=== PATIENT | male | born 1945 | race Caucasian/White ===

== ENCOUNTER 2017-08-16 05:46 | Day surgery (SDC) | payer MEDICARE, OTHER ==
[2017-08-16] MEDS ORDERED: DIPRIVAN 200 MG/20 ML IV ONE (05:47)
[2017-08-16] MEDS ORDERED: Lactated Ringers 1,000 ML IV ONE (06:19)
[2017-08-16] MEDS ORDERED: Lactated Ringers 1,000 ML IV SCH (06:30)
--- NOTE | 2017-08-16 08:55 | OP ---
SURGERY DATE/TIME: 08/16/2017 0758 PREOPERATIVE DIAGNOSES: 1) Gastroesophageal reflux. 2) History of colon polyps. POSTOPERATIVE DIAGNOSES: 1) Gastritis. 2) Reflux esophagitis. 3) Sigmoid diverticulosis. PROCEDURES: 1) Esophagogastroduodenoscopy with biopsy. 2) Colonoscopy. SURGEON: Dr. Crocker. ANESTHESIA: Medications were given by the anesthesia department. BRIEF HISTORY: The patient is a 71 year old white male patient now presenting for endoscopic evaluation due to the presence of persistent gastroesophageal reflux. The patient also reports he has had colon polyps previously and it has been over ten years since his previous evaluation. The patient was felt the need to have endoscopic evaluation. He was appraised of the risks of the procedure including risk of perforation, phlebitis and untoward reaction to medication, bleeding and missed lesions. The patient verbalized his understanding and desired to have the procedure performed. DESCRIPTION OF PROCEDURE: The patient was given the medications by the anesthesia department. He had continuous pulse oximetry, ECG monitoring, intermittent blood pressure monitoring and tidal CO2 monitoring during the examination. He was placed in the left lateral decubitus position. A bite block was placed and the flexible Olympus gastroscope was used to intubate the oropharynx. A view of the larynx was obtained and was normal. The scope was easily introduced in the esophagus which appeared to be normal to the distal esophagus where there appeared to be what looked like possible Vora's metaplasia. There was also noted to be erythema and erosions in the esophagus. The scope was passed in the stomach where normal gastric rugal folds were seen. These distended nicely with insufflation of air. The scope was passed along the greater curvature of the stomach that appeared to be mildly erythematous. The pylorus encountered and intubated. Duodenum inspected and found to be normal. The scope is then withdrawn towards the stomach. A retroflex view was obtained of the lesser curvature, fundus and cardia regions of the stomach and these appeared to be essentially normal. The scope was then redirected towards the gastric antrum and biopsies were obtained to rule out the presence of Helicobacter pylori-type organisms. As the scope was removed back to the esophagus biopsies were obtained to rule out the presence of Vora's metaplasia or dysplasia. The scope was removed from the patient. Next, a digital rectal exam was performed and revealed normal anal sphincter tone and no masses and normal prostate. The flexible Olympus pediatric colonoscope was used to intubate the rectum. A view of the colon was developed sequentially to the cecum. Upon insertion and withdrawal, including a retroflex view in the rectum, was noted moderate sigmoid diverticulosis but no other mucosal lesions were encountered. The scope was removed from the patient who tolerated the procedure well and was sent back to OP recovery in good condition. The prep was noted to be fair.
[2017-08-16 09:21] VITALS: PULSE 48; O2SAT 97
[2017-08-16 09:34] VITALS: BP 143/80
== END 2017-08-16 09:35 | disposition home or self-care (01) ==
LOC: SDC 05:46
PROVIDERS: ATTEND Family Medicine
DX: K29.70 Gastritis, unspecified, without bleeding (principal); Z86.010 Personal history of colon polyps; K21.0 Gastro-esophageal reflux disease with esophagitis; K57.90 Diverticulosis of intestine, part unspecified, without perforation or abscess without bleeding
CPT/HCPCS: 99100; J2704

== ENCOUNTER 2019-07-10 10:53 | Emergency (ER) | payer MEDICARE, OTHER ==
[2019-07-10] MEDS ORDERED: SUBLIMAZE 100 MCG/2 ML IV ONE ×2 (11:10→12:39)
[2019-07-10] MEDS ORDERED: Zofran 4 MG/2 ML VIAL IV ONE (11:11)
[2019-07-10] MEDS ORDERED: Zofran 4 MG/2 ML VIAL ONE (11:12)
[2019-07-10] MEDS ORDERED: SUBLIMAZE 100 MCG/2 ML ONE ×2 (11:13→12:43)
[2019-07-10 11:14] LABS: Appearance CLEAR (CLEAR); Bilirubin NEGATIVE (NEGATIVE); Blood NEGATIVE Ery/ul (0-5); Glucose NEGATIVE (NEGATIVE); Ketones NEGATIVE (NEGATIVE); Leukocyte Esterase NEGATIVE (NEGATIVE); Mucus SLIGHT /HPF (NEGATIVE); Nitrite NEGATIVE (NEGATIVE); Protein,Urine Dip NEGATIVE (Negative); Specific Gravity 1.013 (1.005-1.025); Urobilinogen NEGATIVE mg/dL (0-1)
--- NOTE | 2019-07-10 11:14 | ERPHSYRPT ---
- History of Present Illness Time Seen by Provider: 07/10/19 11:01 Historian: patient Exam Limitations: no limitations Patient Subjective Stated Complaint: Pt stated that he began having some pain in his left flank yesterday but it has increased today but it has not radiated anywhere Triage Nursing Assessment: Pt was brought here by another person, pt rates pain 10/10 with a constant throbbing pain, denies any injury, pain with palpatation, denies urination difficulties, bradycardic, last bm 3 days ago, lungs clear, bowel sounds heard Physician History: 73 yo wm w L flank/LCVA pain rated 10/10 since last PM. Pt states that the pain is throbbing and nothing makes it better or worse. He denies dysuria/hematuria/N /V/D/melena/hematochezia. He has not had a BM x3 days. Timing/Duration: yesterday Activities at Onset: none Quality: throbbing Abdominal Pain Onset Location: flank Pain Radiation: no radiation Severity of Pain-Max: severe Modifying Factors: Improves With: nothing Associated Symptoms: denies symptoms Previous symptoms: no prior history Allergies/Adverse Reactions: ibuprofen [From Motrin] Allergy (Intermediate, Verified 07/10/19 11:10) Hoarseness of voice Sulfa (Sulfonamide Antibiotics) Adverse Reaction (Verified 07/10/19 11:10) Home Medications: Latanoprost [Xalatan] 2.5 ml OP BID 08/16/17 [History] Atropine Sulfate [Atropine Sulfate Eye Drops] 1 drop OP UD 07/10/19 [History] Prednisolone Acetate OPHTH [Pred-Forte 1% Ophthalmic] 1 drop OP UD [History] Rosuvastatin Calcium 5 mg PO DAILY 07/10/19 [History] Travel Risk - International Travel Have you traveled outside of the country in past 3 weeks: No Have you or anyone close to you been diagnosed with or: No Do your reside in a community with a known COVID-19 case?: Yes If Yes where:: long - Coronavirus Screening Has patient experienced Coronavirus symptoms: No - Review of Systems Constitutional: No Symptoms Eyes: No Symptoms Ears, Nose, & Throat: No Symptoms Respiratory: No Symptoms Cardiac: No Symptoms Abdominal/Gastrointestinal: Constipation Genitourinary Symptoms: No Symptoms Musculoskeletal: No Symptoms Skin: No Symptoms Neurological: No Symptoms Psychological: No Symptoms Endocrine: No Symptoms Hematologic/Lymphatic: No Symptoms Immunological/Allergic: No Symptoms - Past Medical History Pertinent Past Medical History: Yes Neurological History: No Pertinent History ENT History: Cataracts, Macular Degeneration, Other Cardiac History: High Cholesterol Respiratory History: Other Endocrine Medical History: No Pertinent History Musculoskeletal History: Osteoarthritis GI Medical History: No Pertinent History History: No Pertinent History Psycho-Social History: No Pertinent History Male Reproductive Disorders: No Pertinent History Other Medical History: Hx bilateral shoulder replacements 2016 and 2017. Glaucoma. Toenail fungus. Diverticulitis - Past Surgical History Past Surgical History: Yes Neuro Surgical History: No Pertinent History Cardiac: No Pertinent History Respiratory: No Pertinent History Gastrointestinal: No Pertinent History Genitourinary: No Pertinent History Musculoskeletal: Orthopedic Surgery Male Surgical History: No Pertinent History Other Surgical History: both shoulders-hemis - Social History Smoking Status: Never smoker Exposure to second hand smoke: No Drug Use: none Patient Lives Alone: No Significant Family History: no pertinent family hx - Nursing Vital Signs Nursing Vital Signs: Initial Vital Signs Temperature 97.6 F 07/10/19 10:56 Pulse Rate 48 L 07/10/19 10:56 Blood Pressure 147/71 07/10/19 10:56 O2 Sat by Pulse Oximetry 98 07/10/19 10:56 Pain Scale Pain Intensity 6 - Physical Exam General Appearance: no apparent distress, other (Pain) Eye Exam: PERRL/EOMI, eyes nml inspection Ears, Nose, Throat Exam: normal ENT inspection, TMs normal Neck Exam: normal inspection, non-tender, supple, full range of motion Respiratory Exam: normal breath sounds, chest tenderness, lungs clear Cardiovascular Exam: regular rate/rhythm, normal heart sounds, normal peripheral pulses, No murmur Gastrointestinal/Abdomen Exam: soft, other (Mild LLQ/L Flank/LCVA TTP) Back Exam: CVA tenderness Extremity Exam: normal inspection, normal range of motion Neurologic Exam: alert, 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, cooperative, shell reprint operator II-XII nml as tested, normal mood/affect, nml cerebellar function, sensation nml Skin Exam: normal color, warm, dry, No rash Lymphatic Exam: No adenopathy SpO2 Interpretation: normal SpO2: 98 O2 Delivery: Room Air - Course Nursing assessment & vital signs reviewed: Yes EKG Interpreted by Me: Sinus Rei, NORMAL INTERVALS, NORMAL QRS Ordered Tests: Active Orders 24 hr Category Date Time Status Workforce Development Assistant STAT Care 07/10/19 11:35 Active EKG-ER Only STAT Care 07/10/19 11:34 Active IV Insertion STAT Care 07/10/19 11:06 Active ABDOMEN AND PELVIS W/0 CONTRAS [CT] Stat Exams 07/10/19 11:33 Completed AMYLASE Stat Lab 07/10/19 11:30 Completed CBC W DIFF Stat Lab 07/10/19 11:30 Completed CMP Stat Lab 07/10/19 11:30 Completed LIPASE Stat Lab 07/10/19 11:30 Completed Manual Differential NC Stat Lab 07/10/19 11:30 Completed TROPONIN Q3H Lab 07/10/19 11:30 Completed TROPONIN Q3H Lab 07/10/19 14:45 Ordered TROPONIN Q3H Lab 07/10/19 17:45 Ordered TROPONIN Q3H Lab 07/10/19 20:45 Ordered TROPONIN Q3H Lab 07/10/19 23:45 Ordered UA W/RFX UR CULTURE Stat Lab 07/10/19 11:03 Completed Medication Summary Discontinued Medications Generic Name Dose Route Start Last Admin Trade Name Freq PRN Reason Stop Dose Admin Fentanyl Citrate 50 mcg 07/10/19 11:10 07/10/19 11:15 Sublimaze 100 Mcg/2 Ml IV 07/10/19 11:11 50 mcg STAT ONE Administration Fentanyl Citrate Confirm 07/10/19 11:13 Sublimaze 100 Mcg/2 Ml Administered 07/10/19 11:14 Dose 100 mcg .ROUTE .STK-MED ONE Fentanyl Citrate 50 mcg 07/10/19 12:39 07/10/19 12:45 Sublimaze 100 Mcg/2 Ml IV 07/10/19 12:40 50 mcg STAT ONE Administration Fentanyl Citrate Confirm 07/10/19 12:43 Sublimaze 100 Mcg/2 Ml Administered 07/10/19 12:44 Dose 100 mcg .ROUTE .STK-MED ONE Ondansetron HCl 4 mg 07/10/19 11:11 07/10/19 11:15 Zofran 4 Mg/2 Ml Vial IV 07/10/19 11:12 4 mg STAT ONE Administration Ondansetron HCl Confirm 07/10/19 11:12 Zofran 4 Mg/2 Ml Vial Administered 07/10/19 11:13 Dose 4 mg .ROUTE .STK-MED ONE Lab/Rad Data: Laboratory Result Diagrams 07/10/19 11:30 07/10/19 11:30 Laboratory Results 07/10/19 07/10/19 07/10/19 Range/Units 11:30 11:30 11:30 WBC 4.8 (4.0-10.5) K/mm3 RBC 4.78 (4.1-5.6) M/mm3 Hgb 14.3 (12.5-18.0) gm/dl Hct 42.9 (42-50) % MCV 89.7 (78-100) fl MCH 29.9 (26-32) pg MCHC 33.3 (32-36) g/dl RDW 14.7 H (11.5-14.0) % Plt Count 167 (150-450) K/mm3 MPV 10.8 (7.5-11.0) fl Absolute Granulocytes 1.92 (1.4-6.9) Segmented Neutrophils 36 (36.-66.) % Band Neutrophils 4 H (0.0-2.0) % Lymphocytes (Manual) 37 (24-44) % Monocytes (Manual) 22 H (0.0-12.0) % Metamyelocytes 1 % Platelet Estimate NORMAL (NORMAL) RBC Morphology NORMAL Sodium 139 (137-145) mmol/L Potassium 4.5 (3.5-5.1) mmol/L Chloride 106 (98-107) mmol/L Carbon Dioxide 24 (22-30) mmol/L Anion Gap 14.2 (5-15) MEQ/L BUN 16 (9-20) mg/dL Creatinine 0.92 (0.66-1.25) mg/dL Estimated GFR > 60.0 ML/MIN Glucose 103 (74-106) mg/dL Calcium 9.0 (8.4-10.2) mg/dL Total Bilirubin 1.00 (0.2-1.3) mg/dL AST 23 (17-59) U/L ALT 19 (0-50) U/L Alkaline Phosphatase 50 (38-126) U/L Troponin I < 0.012 (0.000-0.034) ng/mL Serum Total Protein 7.8 (6.3-8.2) g/dL Albumin 4.3 (3.5-5.0) g/dL Amylase 74 (30-110) U/L Lipase 34 (23-300) U/L Urine Color (YELLOW) Urine Appearance (CLEAR) Urine pH (5-6) Ur Specific Thompson (1.005-1.025) Urine Protein (Negative) Urine Ketones (NEGATIVE) Urine Blood (0-5) Jose/ul Urine Nitrite (NEGATIVE) Urine Bilirubin (NEGATIVE) Urine Urobilinogen (0-1) mg/dL Ur Leukocyte Esterase (NEGATIVE) Urine WBC (Auto) (0-5) /HPF Urine RBC (Auto) (0-2) /HPF U Epithel Cells (Auto) (FEW) /HPF Urine Bacteria (Auto) (NEGATIVE) /HPF Urine Mucus (Auto) (NEGATIVE) /HPF Urine Culture Reflexed (NO) Urine Glucose (NEGATIVE) mg/dL 07/10/19 Range/Units 11:03 WBC (4.0-10.5) K/mm3 RBC (4.1-5.6) M/mm3 Hgb (12.5-18.0) gm/dl Hct (42-50) % MCV (78-100) fl MCH (26-32) pg MCHC (32-36) g/dl RDW (11.5-14.0) % Plt Count (150-450) K/mm3 MPV (7.5-11.0) fl Absolute Granulocytes (1.4-6.9) Segmented Neutrophils (36.-66.) % Band Neutrophils (0.0-2.0) % Lymphocytes (Manual) (24-44) % Monocytes (Manual) (0.0-12.0) % Metamyelocytes % Platelet Estimate (NORMAL) RBC Morphology Sodium (137-145) mmol/L Potassium (3.5-5.1) mmol/L Chloride (98-107) mmol/L Carbon Dioxide (22-30) mmol/L Anion Gap (5-15) MEQ/L BUN (9-20) mg/dL Creatinine (0.66-1.25) mg/dL Estimated GFR ML/MIN Glucose (74-106) mg/dL Calcium (8.4-10.2) mg/dL Total Bilirubin (0.2-1.3) mg/dL AST (17-59) U/L ALT (0-50) U/L Alkaline Phosphatase (38-126) U/L Troponin I (0.000-0.034) ng/mL Serum Total Protein (6.3-8.2) g/dL Albumin (3.5-5.0) g/dL Amylase (30-110) U/L Lipase (23-300) U/L Urine Color YELLOW (YELLOW) Urine Appearance CLEAR (CLEAR) Urine pH 6.0 (5-6) Ur Specific Thompson 1.013 (1.005-1.025) Urine Protein NEGATIVE (Negative) Urine Ketones NEGATIVE (NEGATIVE) Urine Blood NEGATIVE (0-5) Jose/ul Urine Nitrite NEGATIVE (NEGATIVE) Urine Bilirubin NEGATIVE (NEGATIVE) Urine Urobilinogen NEGATIVE (0-1) mg/dL Ur Leukocyte Esterase NEGATIVE (NEGATIVE) Urine WBC (Auto) NONE (0-5) /HPF Urine RBC (Auto) NONE (0-2) /HPF U Epithel Cells (Auto) NONE (FEW) /HPF Urine Bacteria (Auto) NONE (NEGATIVE) /HPF Urine Mucus (Auto) SLIGHT (NEGATIVE) /HPF Urine Culture Reflexed NO (NO) Urine Glucose NEGATIVE (NEGATIVE) mg/dL - Progress Progress: improved Progress Note: 07/10/19 12:36 Pain much improved w 50mcg IV Fentanyl/4mg IV zofran 07/10/19 12:44 Pt given 50mcg IV Fentanyl before discharge Counseled pt/family regarding: lab results, diagnosis, need for follow-up, rad results - Departure Departure Disposition: Home Clinical Impression: Abdominal pain, Constipation Condition: Stable Critical Care Time: No Referrals: CHENTE BARRERA [Primary Care Provider] - Additional Instructions: Fluids Lactulose for constipation Return to ER for increasing pain or temperature greater than 100.5 Prescriptions: Lactulose [Lactulose 20 gm/30Ml Ud Cup] 20 gm PO BID PRN 7 Days udcup PRN Reason: Constipation
[2019-07-10 11:44] LABS: Hematocrit 42.9 % (42-50); Hemoglobin 14.3 gm/dl (12.5-18.0); Mean Cell Volume 89.7 fl (78-100); Mean Corpuscular Hemoglobin 29.9 pg (26-32); Mean Corpuscular Hgb Concent. 33.3 g/dl (32-36); Mean Platelet Volume 10.8 fl (7.5-11.0); Platelet Count 167 K/mm3 (150-450); Red Blood Count 4.78 M/mm3 (4.1-5.6); Red Cell Distribution Width 14.7 % (11.5-14.0); White Blood Count 4.8 K/mm3 (4.0-10.5)
[2019-07-10 11:52] LABS: ALBUMIN 4.3 g/dL (3.5-5.0); ALKALINE PHOSPHATASE 50 U/L (38-126); AMYLASE 74 U/L (30-110); ANION GAP 14.2 MEQ/L (5-15); BLOOD UREA NITROGEN 16 mg/dL (9-20); CHLORIDE 106 mmol/L (98-107); Carbon Dioxide 24 mmol/L (22-30); Creatinine 1 0.92 mg/dL (0.66-1.25); Glucose 103 mg/dL (74-106); LIPASE 34 U/L (23-300); Potassium 4.5 mmol/L (3.5-5.1); SGOT/AST 23 U/L (17-59); SGPT/ALT 19 U/L (0-50); SODIUM 139 mmol/L (137-145); Total Protein 7.8 g/dL (6.3-8.2)
[2019-07-10 12:04] LABS: BAND 4 % (0.0-2.0); Lymphocytes 37 % (24-44); Metamyelocyte 1 %; Monocyte 22 % (0.0-12.0); Neutrophils 36 % (36.-66.); Total Cells Counted 100
[2019-07-10 12:05] LABS: Platelet Estimate NORMAL (NORMAL)
[2019-07-10 12:06] LABS: Absolute Neutrophil Ct (ANC) 1.92 (1.4-6.9)
--- NOTE | 2019-07-10 12:31 | XRAY ---
Indication: Left flank pain. Multiple contiguous axial images obtained through the abdomen and pelvis without contrast as ordered. Comparison: None Lung bases demonstrate mild bilateral dependent atelectasis. There is a benign 7 mm left lung base noncalcified nodule unchanged with respect to CT chest May 01, 2011. No infiltrate or effusion. Heart is not enlarged. Noncontrasted stomach and bowel loops appear nonobstructed. Normal appendix. Mild diffuse scattered colonic fecal debris greatest in the ascending and transverse colon. Scattered descending and sigmoid diverticulosis without diverticulitis. No free fluid/air. Several tiny splenic and solitary hepatic calcified granulomas. Remaining liver, gallbladder, pancreas, spleen, adrenal glands, kidneys, ureters, and bladder appear unremarkable for noncontrast exam. Minimal aortic calcifications without AAA. Osseous structures intact with mild/moderate degenerative changes throughout the thoracolumbar spine and minimal dextroscoliosis centered at L3. Also mild degenerative changes of both hips. Subcentimeter L3 vertebral body bone island. No ventral or inguinal hernias. Impression: 1. Mild diffuse fecal stasis without obstruction and scattered colonic diverticulosis without diverticulitis. 2. Incidental benign left lower lobe noncalcified pulmonary nodule, chronic bony findings, and evidence for granulomatous disease. 3. Remaining CT abdomen/pelvis without contrast exam is negative.
[2019-07-10 12:52] VITALS: BP 146/71; PULSE 52; O2SAT 96
== END 2019-07-10 12:58 | disposition home or self-care (01) ==
LOC: ED 10:53
DX: R10.9 Unspecified abdominal pain (principal); K59.00 Constipation, unspecified; Z79.899 Other long term (current) drug therapy; E78.00 Pure hypercholesterolemia, unspecified
CPT/HCPCS: 36000; 36415; 74176; 80053; 81001; 82150; 83690; 84484; 85025; 93005; 93041; 96374; 96375; 96376; 99284; J2405; J3010

== ENCOUNTER 2020-01-09 18:44 | Inpatient (IN) | payer MEDICARE, OTHER ==
--- NOTE | 2020-01-09 18:55 | ERPHSYRPT ---
- History of Present Illness Time Seen by Provider: 01/09/20 18:55 Source: patient Exam Limitations: no limitations Physician History: This is a 74-year-old male who only takes Flomax as his medication per his report and presents with 1 day history of cough fever and diarrhea. He has no known exposures to anyone that is positive for COVID-19 virus. He has no chest pain he is mildly short of breath. He has no abdominal pain. He has had no vomiting symptoms. He has no myalgias or arthralgias. Patient does not think he has COVID-19 virus but his and family are concerned about this is a possibility and therefore he is being evaluated in the emergency room for his cough, fever and shortness of breath symptoms as well as diarrhea symptoms. Timing/Duration: yesterday Activities at Onset: none Severity of Dyspnea-Max: mild Severity of Dyspnea-Current: mild Possible Cause: no prior episodes Modifying Factors: Improves With: coughing Associated Symptoms: cough, fever, No chest pain/discomfort, No loss of appetite, No chills Allergies/Adverse Reactions: ibuprofen [From Motrin] Allergy (Intermediate, Verified 07/10/19 11:10) Hoarseness of voice Sulfa (Sulfonamide Antibiotics) Adverse Reaction (Verified 07/10/19 11:10) Home Medications: Tamsulosin HCl 0.4 mg [Flomax 0.4 MG] 0.4 mg PO DAILY 01/09/20 [History] Travel Risk - International Travel Have you traveled outside of the country in past 3 weeks: No - Coronavirus Screening Are you exhibiting any of the following symptoms?: Yes Symptoms: Fever, Cough: New Onset, Vomiting/Diarrhea Close contact with a COVID-19 positive Pt in past 14-21 Days: No - Review of Systems Constitutional: Fever Eyes: No Symptoms Ears, Nose, & Throat: No Symptoms Respiratory: Cough, Dyspnea Cardiac: No Symptoms Abdominal/Gastrointestinal: Diarrhea Genitourinary Symptoms: No Symptoms Musculoskeletal: No Symptoms Skin: No Symptoms Neurological: No Symptoms Psychological: No Symptoms Endocrine: No Symptoms Hematologic/Lymphatic: No Symptoms Immunological/Allergic: No Symptoms All Other Systems: Reviewed and Negative - Past Medical History Pertinent Past Medical History: Yes Neurological History: No Pertinent History ENT History: Cataracts, Macular Degeneration, Other Cardiac History: High Cholesterol Respiratory History: Other Endocrine Medical History: No Pertinent History Musculoskeletal History: Osteoarthritis GI Medical History: No Pertinent History History: No Pertinent History Psycho-Social History: No Pertinent History Male Reproductive Disorders: No Pertinent History Other Medical History: Hx bilateral shoulder replacements 2016 and 2017. Glaucoma. Toenail fungus. Diverticulitis - Past Surgical History Past Surgical History: Yes Neuro Surgical History: No Pertinent History Cardiac: No Pertinent History Respiratory: No Pertinent History Gastrointestinal: No Pertinent History Genitourinary: No Pertinent History Musculoskeletal: Orthopedic Surgery Male Surgical History: No Pertinent History Other Surgical History: both shoulders-hemis - Social History Smoking Status: Never smoker Exposure to second hand smoke: No Drug Use: none Patient Lives Alone: No Significant Family History: no pertinent family hx - Nursing Vital Signs Nursing Vital Signs: Initial Vital Signs Temperature 100.4 F 01/09/20 19:21 Pulse Rate 109 H 01/09/20 19:21 Respiratory Rate 30 H 01/09/20 19:21 Blood Pressure 126/86 01/09/20 19:21 O2 Sat by Pulse Oximetry 95 01/09/20 19:21 Pain Scale Pain Intensity 0 - Physical Exam General Appearance: no apparent distress, alert, anxiety Eye Exam: PERRL/EOMI, eyes nml inspection Ears, Nose, Throat Exam: hearing grossly normal, normal pharynx Neck Exam: normal inspection, non-tender, supple, full range of motion Respiratory Exam: normal breath sounds, lungs clear, airway intact, No chest tenderness, No respiratory distress Cardiovascular/Chest Exam: normal peripheral pulses, tachycardia Abdominal/Gastrointestinal Exam: soft, normal bowel sounds, No tenderness Rectal Exam: not done Extremity Exam: non-tender, normal range of motion, normal inspection Neurologic Exam: alert, 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, cooperative, pulper II-XII nml as tested, normal mood/affect, nml cerebellar function, nml station & gait, sensation nml Skin Exam: normal color, warm, dry Lymphatic Exam: No adenopathy SpO2 Interpretation: normal O2 Delivery: Room Air - Course Nursing assessment & vital signs reviewed: Yes EKG Interpreted by Me: RATE ([id number]), Sinus Tach, NORMAL AXIS, NORMAL INTERVALS, NORMAL QRS, NORMAL ST-T, Other (There are no acute ischemic changes on today's EKG. There is new sinus tachycardia compared to the EKG dated 07/10/2019. 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 Care 01/09/20 19:14 Active EKG-ER Only STAT Care 01/09/20 19:13 Active IV Insertion STAT Care 01/09/20 19:13 Active Isolation, Initiate & Maintain STAT Care 01/09/20 19:13 Active Pulse Oximetry (ED) ROUTINE Care 01/09/20 19:14 Active CHEST 1 VIEW (PORTABLE) Stat Exams 01/09/20 19:15 Completed CHEST WITH CONTRAST [CT] Stat Exams 01/09/20 20:13 Taken BLOOD CULTURE Stat Lab 01/09/20 19:53 Received CBC W DIFF Stat Lab 01/09/20 19:28 Results CMP Stat Lab 01/09/20 19:26 Completed D-DIMER QUANTITATIVE Stat Lab 01/09/20 19:26 Completed Ferritin Stat Lab 01/09/20 19:37 Completed INFLUENZA A+B ANNA Stat Lab 01/09/20 19:53 Completed LDH-LACTATE DEHYDROGENASE Stat Lab 01/09/20 19:26 Completed Lactic Acid Stat Lab 01/09/20 19:25 Completed Manual Differential NC Stat Lab 01/09/20 19:28 Results Forrest Screen Stat Lab 01/09/20 19:26 Completed PROTIME WITH INR Stat Lab 01/09/20 19:26 Completed Pathologist Review Stat Lab 01/09/20 19:28 Results TROPONIN Q3H Lab 01/09/20 19:26 Completed TROPONIN Q3H Lab 01/09/20 22:15 Ordered TROPONIN Q3H Lab 01/10/20 01:15 Ordered TROPONIN Q3H Lab 01/10/20 04:15 Ordered TROPONIN Q3H Lab 01/10/20 07:15 Ordered UA W/RFX UR CULTURE Stat Lab 01/09/20 19:29 Ordered Transfer Order Routine Transfer 01/09/20 Ordered Medication Summary Generic Name Dose Route Start Last Admin Trade Name Freq PRN Reason Stop Dose Admin Sodium Chloride 1,000 mls @ 50 mls/hr 01/09/20 19:15 01/09/20 19:36 Sodium Chloride 0.9% 1000 Ml IV 02/08/20 19:14 50 mls/hr .Q20H YOANA Administration Discontinued Medications Generic Name Dose Route Start Last Admin Trade Name Freq PRN Reason Stop Dose Admin Acetaminophen 650 mg 01/09/20 19:57 01/09/20 20:02 Tylenol 325 Mg PO 01/09/20 19:58 650 mg STAT STA Administration Acetaminophen Confirm 01/09/20 20:01 Tylenol 325 Mg Administered 01/09/20 20:02 Dose 650 mg .ROUTE .STK-MED ONE Dexamethasone Sodium Phosphate 6 mg 01/09/20 21:27 Decadron 4 Mg Inj IV 01/09/20 21:28 STAT ONE Lab/Rad Data: Laboratory Result Diagrams 01/09/20 19:28 01/09/20 19:26 Laboratory Results 01/09/20 01/09/20 01/09/20 Range/Units 20:27 19:53 19:53 WBC (4.0-10.5) K/mm3 RBC (4.1-5.6) M/mm3 Hgb (12.5-18.0) gm/dl Hct (42-50) % MCV (78-100) fl MCH (26-32) pg MCHC (32-36) g/dl RDW (11.5-14.0) % Plt Count (150-450) K/mm3 MPV (7.5-11.0) fl Segmented Neutrophils (36.-66.) % Band Neutrophils (0.0-2.0) % Lymphocytes (Manual) (24-44) % Monocytes (Manual) (0.0-12.0) % Atypical Lymphocytes % Platelet Estimate (NORMAL) RBC Morphology Smear Path Review PT (8.83-12.87) SECONDS INR (0.8-3.0) D-Dimer (215-500) ng/mL Sodium (137-145) mmol/L Potassium (3.5-5.1) mmol/L Chloride (98-107) mmol/L Carbon Dioxide (22-30) mmol/L Anion Gap (5-15) MEQ/L BUN (9-20) mg/dL Creatinine (0.66-1.25) mg/dL Estimated GFR ML/MIN Glucose (74-106) mg/dL Lactic Acid (0.4-2.0) Calcium (8.4-10.2) mg/dL Ferritin (17.9-464) ng/mL Total Bilirubin (0.2-1.3) mg/dL AST (17-59) U/L ALT (0-50) U/L Alkaline Phosphatase (38-126) U/L Lactate Dehydrogenase (120-246) U/L Troponin I (0.000-0.034) ng/mL Serum Total Protein (6.3-8.2) g/dL Albumin (3.5-5.0) g/dL Monoscreen (Negative) Influenza Type A Ag NEGATIVE (NEGATIVE) Influenza Type B Ag NEGATIVE (NEGATIVE) SARS-CoV-2 (PCR) POSITIVE A (NEGATIVE) Group A Strep Antibody NOT DETECTED (NEGATIVE) 01/09/20 01/09/20 01/09/20 Range/Units 19:37 19:28 19:26 WBC 7.5 (4.0-10.5) K/mm3 RBC 4.61 (4.1-5.6) M/mm3 Hgb 13.5 (12.5-18.0) gm/dl Hct 40.0 L (42-50) % MCV 86.8 (78-100) fl MCH 29.3 (26-32) pg MCHC 33.8 (32-36) g/dl RDW 14.4 H (11.5-14.0) % Plt Count 106 L (150-450) K/mm3 MPV 12.2 H (7.5-11.0) fl Segmented Neutrophils 24 L (36.-66.) % Band Neutrophils 11 H (0.0-2.0) % Lymphocytes (Manual) 15 L (24-44) % Monocytes (Manual) 46 H (0.0-12.0) % Atypical Lymphocytes 4 % Platelet Estimate NORMAL (NORMAL) RBC Morphology NORMAL Smear Path Review Pending PT (8.83-12.87) SECONDS INR (0.8-3.0) D-Dimer (215-500) ng/mL Sodium (137-145) mmol/L Potassium (3.5-5.1) mmol/L Chloride (98-107) mmol/L Carbon Dioxide (22-30) mmol/L Anion Gap (5-15) MEQ/L BUN (9-20) mg/dL Creatinine (0.66-1.25) mg/dL Estimated GFR ML/MIN Glucose (74-106) mg/dL Lactic Acid (0.4-2.0) Calcium (8.4-10.2) mg/dL Ferritin 703 H (17.9-464) ng/mL Total Bilirubin (0.2-1.3) mg/dL AST (17-59) U/L ALT (0-50) U/L Alkaline Phosphatase (38-126) U/L Lactate Dehydrogenase (120-246) U/L Troponin I (0.000-0.034) ng/mL Serum Total Protein (6.3-8.2) g/dL Albumin (3.5-5.0) g/dL Monoscreen NEGATIVE (Negative) Influenza Type A Ag (NEGATIVE) Influenza Type B Ag (NEGATIVE) SARS-CoV-2 (PCR) (NEGATIVE) Group A Strep Antibody (NEGATIVE) 01/09/20 01/09/20 01/09/20 Range/Units 19:26 19:26 19:26 WBC (4.0-10.5) K/mm3 RBC (4.1-5.6) M/mm3 Hgb (12.5-18.0) gm/dl Hct (42-50) % MCV (78-100) fl MCH (26-32) pg MCHC (32-36) g/dl RDW (11.5-14.0) % Plt Count (150-450) K/mm3 MPV (7.5-11.0) fl Segmented Neutrophils (36.-66.) % Band Neutrophils (0.0-2.0) % Lymphocytes (Manual) (24-44) % Monocytes (Manual) (0.0-12.0) % Atypical Lymphocytes % Platelet Estimate (NORMAL) RBC Morphology Smear Path Review PT 16.9 H (8.83-12.87) SECONDS INR 1.49 (0.8-3.0) D-Dimer 1738 H* (215-500) ng/mL Sodium 128 L (137-145) mmol/L Potassium 4.0 (3.5-5.1) mmol/L Chloride 96 L (98-107) mmol/L Carbon Dioxide 22 (22-30) mmol/L Anion Gap 13.7 (5-15) MEQ/L BUN 24 H (9-20) mg/dL Creatinine 1.20 (0.66-1.25) mg/dL Estimated GFR > 60.0 ML/MIN Glucose 164 H (74-106) mg/dL Lactic Acid (0.4-2.0) Calcium 8.4 (8.4-10.2) mg/dL Ferritin (17.9-464) ng/mL Total Bilirubin 1.00 (0.2-1.3) mg/dL AST 60 H (17-59) U/L ALT 52 H (0-50) U/L Alkaline Phosphatase 48 (38-126) U/L Lactate Dehydrogenase 496 H (120-246) U/L Troponin I 0.019 (0.000-0.034) ng/mL Serum Total Protein 6.7 (6.3-8.2) g/dL Albumin 3.6 (3.5-5.0) g/dL Monoscreen (Negative) Influenza Type A Ag (NEGATIVE) Influenza Type B Ag (NEGATIVE) SARS-CoV-2 (PCR) (NEGATIVE) Group A Strep Antibody (NEGATIVE) 01/09/20 Range/Units 19:25 WBC (4.0-10.5) K/mm3 RBC (4.1-5.6) M/mm3 Hgb (12.5-18.0) gm/dl Hct (42-50) % MCV (78-100) fl MCH (26-32) pg MCHC (32-36) g/dl RDW (11.5-14.0) % Plt Count (150-450) K/mm3 MPV (7.5-11.0) fl Segmented Neutrophils (36.-66.) % Band Neutrophils (0.0-2.0) % Lymphocytes (Manual) (24-44) % Monocytes (Manual) (0.0-12.0) % Atypical Lymphocytes % Platelet Estimate (NORMAL) RBC Morphology Smear Path Review PT (8.83-12.87) SECONDS INR (0.8-3.0) D-Dimer (215-500) ng/mL Sodium (137-145) mmol/L Potassium (3.5-5.1) mmol/L Chloride (98-107) mmol/L Carbon Dioxide (22-30) mmol/L Anion Gap (5-15) MEQ/L BUN (9-20) mg/dL Creatinine (0.66-1.25) mg/dL Estimated GFR ML/MIN Glucose (74-106) mg/dL Lactic Acid 2.0 (0.4-2.0) Calcium (8.4-10.2) mg/dL Ferritin (17.9-464) ng/mL Total Bilirubin (0.2-1.3) mg/dL AST (17-59) U/L ALT (0-50) U/L Alkaline Phosphatase (38-126) U/L Lactate Dehydrogenase (120-246) U/L Troponin I (0.000-0.034) ng/mL Serum Total Protein (6.3-8.2) g/dL Albumin (3.5-5.0) g/dL Monoscreen (Negative) Influenza Type A Ag (NEGATIVE) Influenza Type B Ag (NEGATIVE) SARS-CoV-2 (PCR) (NEGATIVE) Group A Strep Antibody (NEGATIVE) - Progress Progress: re-examined Air Movement: fair Progress Note: 01/09/20 20:18 Chest x-ray shows bibasilar opacities right worse than left 01/09/20 21:25 CTA of the chest reveals bilateral groundglass opacities consistent with moderate bilateral COVID-19 pneumonia versus other viral pneumonia. No pulmonary emboli or aortic dissection is present 01/09/20 22:08 Medical decision making: I spoke with Dr. Baires I reviewed viewed the patient's history condition x-ray findings, EKG findings and response to therapy with him. I reviewed the patient's laboratory results. He agrees to admit the patient to the COVID-19 unit. Blood Culture(s) Obtained: Yes Antibiotics given: No Counseled pt/family regarding: lab results, diagnosis, need for follow-up, rad results - Departure Departure Disposition: In-patient Admission Clinical Impression: Pneumonia due to COVID-19 virus, Hypoxia, Fever Condition: Stable Critical Care Time: Yes Critical Care Time(excluding separately billable procedures): Critical 30-74 mins Referrals: GUSTAVO ROBERTS [Primary Care Provider] -
[2020-01-09] MEDS ORDERED: Sodium Chloride 0.9% 1000 ML 1,000 ML IV SCH (19:15)
[2020-01-09] MEDS ORDERED: Sodium Chloride 0.9% 1000 ML 1,000 ML ONE (19:33)
[2020-01-09 19:34] LABS: Hemoglobin 13.5 gm/dl (12.5-18.0); Mean Cell Volume 86.8 fl (78-100); Mean Corpuscular Hemoglobin 29.3 pg (26-32); Mean Corpuscular Hgb Concent. 33.8 g/dl (32-36); Mean Platelet Volume 12.2 fl (7.5-11.0); Platelet Count 106 K/mm3 (150-450); Red Blood Count 4.61 M/mm3 (4.1-5.6); Red Cell Distribution Width 14.4 % (11.5-14.0); White Blood Count 7.5 K/mm3 (4.0-10.5)
[2020-01-09 19:42] LABS: INR 1.49 (0.8-3.0); PROTIME 16.9 SECONDS (8.83-12.87)
[2020-01-09 19:46] LABS: ALBUMIN 3.6 g/dL (3.5-5.0); ALKALINE PHOSPHATASE 48 U/L (38-126); ANION GAP 13.7 MEQ/L (5-15); BLOOD UREA NITROGEN 24 mg/dL (9-20); CHLORIDE 96 mmol/L (98-107); Calcium 8.4 mg/dL (8.4-10.2); Carbon Dioxide 22 mmol/L (22-30); EST GLOMERULAR FILTRATION RATE > 60.0 ML/MIN; Glucose 164 mg/dL (74-106); LDH-LACTATE DEHYDROGENASE 496 U/L (120-246); SGOT/AST 60 U/L (17-59); SGPT/ALT 52 U/L (0-50); SODIUM 128 mmol/L (137-145); Total Protein 6.7 g/dL (6.3-8.2)
[2020-01-09] MEDS ORDERED: TYLENOL 325 MG PO STA (19:57)
[2020-01-09] MEDS ORDERED: TYLENOL 325 MG ONE (20:01)
[2020-01-09 20:16] LABS: INFLUENZA A NEGATIVE (NEGATIVE); INFLUENZA B NEGATIVE (NEGATIVE)
[2020-01-09 20:50] LABS: ATYPICAL LYMPHS 4 %; BAND 11 % (0.0-2.0); Lymphocytes 15 % (24-44); Monocyte 46 % (0.0-12.0); Neutrophils 24 % (36.-66.); Platelet Estimate NORMAL (NORMAL); Total Cells Counted 100
--- NOTE | 2020-01-09 21:19 | XRAY ---
Indication: Short of breath. Suspect Covid 19. Comparison: March 17, 2011. Portable chest demonstrates new subtle hazy airspace opacities bilaterally without consolidation/large effusion. Heart is not enlarged. Bony thorax intact with interval bilateral shoulder arthroplasty.
[2020-01-09] MEDS ORDERED: Decadron 4 MG INJ IV ONE (21:27)
[2020-01-09] MEDS ORDERED: Decadron 4 MG INJ ONE (22:30)
[2020-01-09] MEDS ORDERED: TYLENOL 325 MG PO PRN (22:34)
[2020-01-09] MEDS ORDERED: REMDESIVIR 100 MG in Sodium Chloride 0.9% 100 ML IVPB 100 ML IV SCH (22:34)
[2020-01-09] MEDS ORDERED: REMDESIVIR 200 MG in Sodium Chloride 0.9% 250 ML 250 ML IV ONE (22:34)
[2020-01-09] MEDS ORDERED: Zofran 4 MG/2 ML VIAL IV PRN (22:34)
[2020-01-10] MEDS: Sodium Chloride 0.9% 1000 ML 1,000 ML IV SCH ×2 (00:04→21:26)
[2020-01-10] MEDS ORDERED: Sodium Chloride 0.9% 250 ML 250 ML IV ONE (00:10)
[2020-01-10] MEDS ORDERED: REMDESIVIR IV ONE (00:10)
[2020-01-10 01:57] LABS: Appearance CLEAR (CLEAR); Bilirubin NEGATIVE (NEGATIVE); Blood SMALL Ery/ul (0-5); Glucose NEGATIVE (NEGATIVE); Ketones NEGATIVE (NEGATIVE); Leukocyte Esterase NEGATIVE (NEGATIVE); Mucus SLIGHT /HPF (NEGATIVE); Nitrite NEGATIVE (NEGATIVE); Protein,Urine Dip 30 (Negative); Specific Gravity 1.032 (1.005-1.025); Urobilinogen NEGATIVE mg/dL (0-1)
[2020-01-10 02:09] LABS: Bacteria NONE SEEN /HPF (NEGATIVE)
[2020-01-10 06:40] LABS: Hematocrit 39.4 % (42-50); Hemoglobin 13.4 gm/dl (12.5-18.0); Mean Cell Volume 86.8 fl (78-100); Mean Corpuscular Hemoglobin 29.5 pg (26-32); Mean Platelet Volume 12.4 fl (7.5-11.0); Platelet Count 108 K/mm3 (150-450); Red Blood Count 4.54 M/mm3 (4.1-5.6); Red Cell Distribution Width 14.3 % (11.5-14.0); White Blood Count 4.7 K/mm3 (4.0-10.5)
[2020-01-10 07:06] LABS: ALBUMIN 3.6 g/dL (3.5-5.0); ALKALINE PHOSPHATASE 44 U/L (38-126); ANION GAP 13.4 MEQ/L (5-15); BLOOD UREA NITROGEN 22 mg/dL (9-20); CHLORIDE 100 mmol/L (98-107); Calcium 8.6 mg/dL (8.4-10.2); Carbon Dioxide 24 mmol/L (22-30); Creatinine 1 1.05 mg/dL (0.66-1.25); EST GLOMERULAR FILTRATION RATE > 60.0 ML/MIN; Glucose 211 mg/dL (74-106); Potassium 4.7 mmol/L (3.5-5.1); SGOT/AST 59 U/L (17-59); SGPT/ALT 61 U/L (0-50); SODIUM 133 mmol/L (137-145); Total Protein 7.2 g/dL (6.3-8.2)
--- NOTE | 2020-01-10 08:10 | XRAY ---
Indication: Short of breath and cough. Elevated d-dimer. Multiple contiguous axial images obtained through the chest using 80 cc Isovue 370 contrast and PE protocol. Comparison: CT chest without May 01, 2011. There is good opacification of the pulmonary arteries including lobar and segmental branches. No pulmonary embolus. Heart is not enlarged. Aorta is normal in course and caliber. No pathologic mediastinal/hilar lymphadenopathy. Lungs inflated with new diffuse bilateral hazy alveolar opacities greatest in the lower lobes. No consolidation/effusion. Bony thorax intact with mild degenerative changes throughout the spine. Limited upper abdomen demonstrates splenic calcified granulomas and incompletely visualized 1.6 cm right inferior renal cyst. Impression: 1. Negative pulmonary embolus. 2. New diffuse bilateral airspace disease without consolidation/effusion. 3. New incompletely visualized right renal cyst. Comment: Preliminary interpretation was made by [facility]. No critical discrepancy.
[2020-01-10 08:59] LABS: BAND 9 % (0.0-2.0); Eosinophil 1 % (0.00-3.0); Lymphocytes 17 % (24-44); Monocyte 37 % (0.0-12.0); Neutrophils 36 % (36.-66.); Platelet Estimate DECREASED (NORMAL); Total Cells Counted 100
[2020-01-10] MEDS: ENOXAPARIN SODIUM SQ SCH (10:51)
[2020-01-10] MEDS ORDERED: Artificial Tears 15 ML OP PRN (11:44)
[2020-01-10] MEDS: Flomax 0.4 MG PO SCH (12:00)
[2020-01-10] MEDS: AMOXIL 500 MG PO SCH ×2 (15:32→22:07)
[2020-01-10] MEDS ORDERED: PATIENT OWN MEDICATION OP PRN (15:46)
[2020-01-10] MEDS ORDERED: Decadron 4 MG INJ IV SCH (21:00)
[2020-01-10] MEDS ORDERED: DECADRON 10MG INJ. IV SCH (21:00)
[2020-01-10] MEDS ORDERED: REMDESIVIR 100 MG in Sodium Chloride 0.9% 100 ML IVPB 100 ML IV SCH (22:00)
[2020-01-10] MEDS ORDERED: Sodium Chloride 0.9% 100 ML IVPB 100 ML IV ONE (22:19)
[2020-01-11] MEDS: AMOXIL 500 MG PO SCH (10:04)
[2020-01-11] MEDS: ENOXAPARIN SODIUM SQ SCH (10:04)
[2020-01-11] MEDS: Flomax 0.4 MG PO SCH (10:05)
--- NOTE | 2020-01-11 11:58 | HP ---
CHIEF COMPLAINT: Cough, fever, chills, myalgia. HISTORY OF PRESENT ILLNESS: This patient started running a fever of 100 to 101F at home, felt short of breath, could not stop coughing. He had some sharp chest pain. He thought he probably had COVID and brought himself to the emergency room late Saturday night. He has not been in close contact with anyone with the COVID. He usually stays around home. He is retired. His is a retired teacher. I do not think she gets out much. May have gotten it from a [facility] at [facility] I think is most likely. MEDICATIONS: Flomax 0.4 q.d. for benign prostatic hypertrophy just started. ALLERGIES: IBUPROFEN. SULFA. PAST MEDICAL HISTORY: Hypertension, history of multiple shoulder surgeries, history of pain in the right knee recently after twisting it, benign prostatic hypertrophy for which he is taking Flomax just recently and has not had any improvement with it. PAST SURGICAL HISTORY: Bilateral shoulder surgery I believe twice. REVIEW OF SYSTEMS: CONSTITUTIONAL: Fever and myalgia. HEENT: Eyes - No problems. Ears - hearing decreased. Hearing aids do not particularly help. RESPIRATORY: Cough, shortness of breath for three or four days. CVS: No chest pain, palpitations, history of myocardial infarction or arrhythmia. ABDOMEN: He had some nausea at first but not he is not so much nauseated. No history of gallbladder or colon problems. NEUROLOGIC: No history of stroke or seizures. PSYCHIATRIC: No history of depression. No anxiety. ENDOCRINE: No problems. 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 PHYSICAL EXAMINATION: The patient is a very healthy, strong looking 74 year old white male. VITAL SIGNS: Temperature was elevated at 100.4F. O2 saturation was normal on room air although he is short of breath and he was given 2 liters. HEENT: Pupils equal and reactive to light. NECK: Supple without adenopathy. CHEST: Clear. CVS: No murmurs or gallops. ABDOMEN: Soft. No tenderness. EXTREMITIES: Some tenderness really in the right vastus lateralis muscle not so much in the knee. LAB DATA AND TESTS: EKG was normal. IMPRESSION: The patient does have COVID pneumonia with mild symptoms. PLAN: At this time will start him on Decadron, Remdesivir and watch. He might be a candidate to send home in 24 hours on oxygen as he is extremely healthy, not particularly hypoxic. PROGNOSIS: Good.
[2020-01-11 12:34] VITALS: BP 117/74; PULSE 59; O2SAT 93
== END 2020-01-11 13:50 | disposition home or self-care (01) | DRG 177 ==
LOC: ED 18:44 → MED SURG 22:26
PROVIDERS: ADMIT Family Medicine; ATTEND Family Medicine
DX: U07.1 COVID-19 (principal); J12.89 Other viral pneumonia; R19.7 Diarrhea, unspecified; E78.00 Pure hypercholesterolemia, unspecified; I10 Essential (primary) hypertension; N40.0 Benign prostatic hyperplasia without lower urinary tract symptoms; R09.02 Hypoxemia; Z79.899 Other long term (current) drug therapy; R11.10 Vomiting, unspecified; M79.10 Myalgia, unspecified site
CPT/HCPCS: 36000; 36415; 71045; 71260; 80053; 81001; 82728; 82947; 83036; 83605; 83615; 84484; 85025; 85379; 85610; 86308; 87040; 87400; 87651; 93005; 93041; 94760; 94762; 96360; 96361; 99284; 99291; U0003; J1100; J1650; A9270-GY

== ENCOUNTER 2021-03-10 09:14 | Emergency (ER) | payer MEDICARE, OTHER ==
--- NOTE | 2021-03-10 09:28 | ERPHSYRPT ---
- History of Present Illness Time Seen by Provider: 03/10/21 09:27 Source: patient Exam Limitations: no limitations Physician History: This is a 75-year-old white male patient of Dr. Ilan Barrera who presented to the radiology department for a CAT scan of the head without contrast. While waiting for his study he had a seizure and a syncopal episode and patient was then transferred rapidly to our emergency department. Patient is currently awake alert and oriented. Patient has been having headaches and that is why he was sent to the emergency department to undergo CAT scan of his head. He was started on gabapentin yesterday and took a dose of that medicine this morning. He is convinced that the medicine is caused his symptoms this morning. Patient denies chest pain. He denies abdominal pain. He denies shortness of breath. Patient does have a history of prostate issues and relatively recently underwent a cystoscopy per his report. He has a history of elevated cholesterol. He is here in the emergency department because of the seizure-like activity and the syncopal episode. Timing/Duration: today Severity: moderate Character of Deficits: none Deficits: no difficulties Baseline/Normal Cognition: alert 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 Current Cognition: alert 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 Baseline Gait: walks w/o assistance Associated Symptoms: loss of consciousness, seizures, headache Allergies/Adverse Reactions: ibuprofen [From Motrin] Allergy (Intermediate, Verified 07/10/19 11:10) Hoarseness of voice Sulfa (Sulfonamide Antibiotics) Adverse Reaction (Verified 07/10/19 11:10) Home Medications: Tamsulosin HCl 0.4 mg [Flomax 0.4 MG] 0.4 mg PO DAILY 01/09/20 [History] Hx Tetanus, Diphtheria Vaccination/Date Given: Yes Hx Influenza Vaccination/Date Given: Yes Hx Pneumococcal Vaccination/Date Given: Yes Travel Risk - International Travel Have you traveled outside of the country in past 3 weeks: No - Coronavirus Screening Are you exhibiting any of the following symptoms?: No Close contact with a COVID-19 positive Pt in past 14-21 Days: No - Vaccine Status Have you recieved a Covid-19 vaccination: No - Review of Systems Constitutional: No Symptoms Eyes: No Symptoms Ears, Nose, & Throat: No Symptoms Respiratory: No Symptoms Cardiac: No Symptoms Abdominal/Gastrointestinal: No Symptoms Genitourinary Symptoms: No Symptoms Musculoskeletal: No Symptoms Skin: No Symptoms Neurological: Headache Psychological: No Symptoms Endocrine: No Symptoms Hematologic/Lymphatic: No Symptoms Immunological/Allergic: No Symptoms All Other Systems: Reviewed and Negative - Past Medical History Pertinent Past Medical History: Yes Neurological History: No Pertinent History ENT History: Cataracts, Macular Degeneration, Other Cardiac History: High Cholesterol Respiratory History: Other Endocrine Medical History: No Pertinent History Musculoskeletal History: Osteoarthritis GI Medical History: No Pertinent History History: No Pertinent History Psycho-Social History: No Pertinent History Male Reproductive Disorders: No Pertinent History Other Medical History: Hx bilateral shoulder replacements 2016 and 2017. Glaucoma. Toenail fungus. Diverticulitis - Past Surgical History Past Surgical History: Yes Neuro Surgical History: No Pertinent History Cardiac: No Pertinent History Respiratory: No Pertinent History Gastrointestinal: No Pertinent History Genitourinary: No Pertinent History Musculoskeletal: Orthopedic Surgery Male Surgical History: No Pertinent History Other Surgical History: both shoulders-hemis - Social History Smoking Status: Never smoker Exposure to second hand smoke: No Drug Use: none Patient Lives Alone: No Significant Family History: no pertinent family hx - Nursing Vital Signs Nursing Vital Signs: Initial Vital Signs Temperature 96.7 F 03/10/21 09:19 Pulse Rate 84 03/10/21 09:19 Respiratory Rate 30 H 03/10/21 09:19 Blood Pressure 132/67 03/10/21 09:19 O2 Sat by Pulse Oximetry 95 03/10/21 09:19 Pain Scale Pain Intensity 0 - [place] Coma Scale Best Eye Response (Carla): (4) open spontaneously Best Verbal Response ([place]): (5) oriented Best Motor Response (Carla): (6) obeys commands [place] Total: 15 - Physical Exam General Appearance: no apparent distress, alert, anxiety Eye Exam: bilateral eye: normal inspection, PERRL, EOMI Ears, Nose, Throat Exam: normal ENT inspection, moist mucous membranes Neck Exam: normal inspection, non-tender, supple, full range of motion Respiratory: normal breath sounds, lungs clear, airway intact, No chest tenderness, No respiratory distress Cardiovascular: regular rate/rhythm, normal heart sounds, normal peripheral pulses Gastrointestinal: soft, normal bowel sounds, No tenderness Rectal Exam: not done Back Exam: normal inspection, normal range of motion, No CVA tenderness, No vertebral tenderness Extremity Exam: normal inspection, normal range of motion, pelvis stable Mental 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: 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, 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, 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: normal hearing, normal speech, PERRL Coordination/Gait: normal finger to nose Motor/Sensory: no motor deficit, no sensory deficit, no pronator drift Skin Exam: warm, dry, pale SpO2 Interpretation: normal O2 Delivery: Room Air - Course Nursing assessment & vital signs reviewed: Yes EKG Interpreted by Me: RATE ([id number]), Sinus Rhythm, NORMAL AXIS, NORMAL INTERVALS, NORMAL QRS, NORMAL ST-T Ordered Tests: Active Orders 24 hr Category Date Time Status 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 Care 03/10/21 09:29 Active EKG-ER Only STAT Care 03/10/21 09:29 Active IV Insertion STAT Care 03/10/21 09:29 Active POCT Glucose Check STAT Care 03/10/21 09:29 Active Pulse Oximetry (ED) STAT Care 03/10/21 09:29 Active Seizure Precautions -SCCHED STAT Care 03/10/21 09:29 Active House Regular Diet Diet 03/10/21 Dinner Active HEAD WITHOUT CONTRAST [CT] Stat Exams 03/10/21 09:29 Completed CBC W DIFF Stat Lab 03/10/21 09:30 Completed CBC W DIFF Stat Lab 03/10/21 12:40 Received CMP Stat Lab 03/10/21 09:30 Completed COVID AG-BINAX NOW RAPID TEST Stat Lab 03/10/21 09:40 Completed CULTURE,URINE Stat Lab 03/10/21 11:44 Received ETHYL ALCOHOL Stat Lab 03/10/21 09:30 Completed INFLUENZA A+B ANNA Stat Lab 03/10/21 09:40 Completed Lactic Acid Stat Lab 03/10/21 09:39 Completed Manual Differential NC Stat Lab 03/10/21 09:30 Completed [place] Screen Stat Lab 03/10/21 09:30 Completed UA W/RFX UR CULTURE Stat Lab 03/10/21 11:44 Completed Urine Triage Profile Stat Lab 03/10/21 11:44 Completed Medication Summary Generic Name Dose Route Start Last Admin Trade Name Freq PRN Reason Stop Dose Admin Sodium Chloride 1,000 mls @ 250 mls/hr 03/10/21 11:45 03/10/21 12:03 Sodium Chloride 0.9% 1000 Ml IV 04/09/21 11:44 250 mls/hr .Q4H YOANA Administration Discontinued Medications Generic Name Dose Route Start Last Admin Trade Name Freq PRN Reason Stop Dose Admin Sodium Chloride 1,000 mls @ 999 mls/hr 03/10/21 09:29 03/10/21 10:57 Sodium Chloride 0.9% 1000 Ml IV 03/10/21 10:29 Infused .Q1H1M STA Infusion Sodium Chloride Confirm 03/10/21 09:43 Sodium Chloride 0.9% 1000 Ml Administered 03/10/21 09:44 Dose 1,000 mls @ ud .ROUTE .STK-MED ONE Ondansetron HCl 4 mg 03/10/21 09:41 03/10/21 09:44 Ondansetron Hcl 4 Mg/2 Ml Vial IV 03/10/21 09:42 4 mg STAT ONE Administration Ondansetron HCl Confirm 03/10/21 09:41 Ondansetron Hcl 4 Mg/2 Ml Vial Administered 03/10/21 09:42 Dose 4 mg .ROUTE .STK-MED ONE Lab/Rad Data: Laboratory Result Diagrams 03/10/21 09:30 03/10/21 09:30 Laboratory Results 03/10/21 03/10/21 03/10/21 Range/Units 11:44 11:44 09:40 WBC (4.0-10.5) K/mm3 RBC (4.1-5.6) M/mm3 Hgb (12.5-18.0) gm/dl Hct (42-50) % MCV (78-100) fl MCH (26-32) pg MCHC (32-36) g/dl RDW (11.5-14.0) % Plt Count (150-450) K/mm3 MPV (7.5-11.0) fl Segmented Neutrophils (36.-66.) % Band Neutrophils (0.0-2.0) % Lymphocytes (Manual) (24-44) % Monocytes (Manual) (0.0-12.0) % Eosinophils (Manual) (0.00-3.0) % Platelet Estimate (NORMAL) RBC Morphology Sodium (137-145) mmol/L Potassium (3.5-5.1) mmol/L Chloride (98-107) mmol/L Carbon Dioxide (22-30) mmol/L Anion Gap (5-15) MEQ/L BUN (9-20) mg/dL Creatinine (0.66-1.25) mg/dL Estimated GFR ML/MIN Glucose (74-106) mg/dL Lactic Acid (0.4-2.0) Calcium (8.4-10.2) mg/dL Total Bilirubin (0.2-1.3) mg/dL AST (17-59) U/L ALT (0-50) U/L Alkaline Phosphatase (38-126) U/L Serum Total Protein (6.3-8.2) g/dL Albumin (3.5-5.0) g/dL Urine Color YELLOW (YELLOW) Urine Appearance CLOUDY (CLEAR) Urine pH 5.0 (5-6) Ur Specific [place] 1.011 (1.005-1.025) Urine Protein 30 (Negative) Urine Ketones NEGATIVE (NEGATIVE) Urine Blood SMALL (0-5) Jose/ul Urine Nitrite NEGATIVE (NEGATIVE) Urine Bilirubin NEGATIVE (NEGATIVE) Urine Urobilinogen NEGATIVE (0-1) mg/dL Ur Leukocyte Esterase NEGATIVE (NEGATIVE) Urine WBC (Auto) 6-10 (0-5) /HPF Urine RBC (Auto) 0-2 (0-2) /HPF U Epithel Cells (Auto) RARE (FEW) /HPF Urine Culture Reflexed YES (NO) Urine Glucose NEGATIVE (NEGATIVE) mg/dL Urine Opiates Level NEGATIVE (NEGATIVE) Ur Methadone NEGATIVE (NEGATIVE) Urine Barbiturates NEGATIVE (NEGATIVE) Ur Phencyclidine (PCP) NEGATIVE (NEGATIVE) Urine Amphetamine NEGATIVE (NEGATIVE) U Benzodiazepine Level NEGATIVE (NEGATIVE) Urine Cocaine NEGATIVE (NEGATIVE) Urine Marijuana (THC) NEGATIVE (NEGATIVE) Ethyl Alcohol (0-10) mg/dL Monoscreen (Negative) Influenza Type A Ag NEGATIVE (NEGATIVE) Influenza Type B Ag NEGATIVE (NEGATIVE) SARS-CoV-2 Ag (Rapid) NEGATIVE (NEGATIVE) 03/10/21 03/10/21 03/10/21 Range/Units 09:39 09:30 09:30 WBC (4.0-10.5) K/mm3 RBC (4.1-5.6) M/mm3 Hgb (12.5-18.0) gm/dl Hct (42-50) % MCV (78-100) fl MCH (26-32) pg MCHC (32-36) g/dl RDW (11.5-14.0) % Plt Count (150-450) K/mm3 MPV (7.5-11.0) fl Segmented Neutrophils (36.-66.) % Band Neutrophils (0.0-2.0) % Lymphocytes (Manual) (24-44) % Monocytes (Manual) (0.0-12.0) % Eosinophils (Manual) (0.00-3.0) % Platelet Estimate (NORMAL) RBC Morphology Sodium 134 L (137-145) mmol/L Potassium 4.1 (3.5-5.1) mmol/L Chloride 102 (98-107) mmol/L Carbon Dioxide 19 L (22-30) mmol/L Anion Gap 17.4 H (5-15) MEQ/L BUN 21 H (9-20) mg/dL Creatinine 1.34 H (0.66-1.25) mg/dL Estimated GFR 54.9 ML/MIN Glucose 173 H (74-106) mg/dL Lactic Acid 2.0 (0.4-2.0) Calcium 8.5 (8.4-10.2) mg/dL Total Bilirubin 0.90 (0.2-1.3) mg/dL AST 83 H (17-59) U/L ALT 103 H (0-50) U/L Alkaline Phosphatase 103 (38-126) U/L Serum Total Protein 6.8 (6.3-8.2) g/dL Albumin 3.2 L (3.5-5.0) g/dL Urine Color (YELLOW) Urine Appearance (CLEAR) Urine pH (5-6) Ur Specific [place] (1.005-1.025) Urine Protein (Negative) Urine Ketones (NEGATIVE) Urine Blood (0-5) Jose/ul Urine Nitrite (NEGATIVE) Urine Bilirubin (NEGATIVE) Urine Urobilinogen (0-1) mg/dL Ur Leukocyte Esterase (NEGATIVE) Urine WBC (Auto) (0-5) /HPF Urine RBC (Auto) (0-2) /HPF U Epithel Cells (Auto) (FEW) /HPF Urine Culture Reflexed (NO) Urine Glucose (NEGATIVE) mg/dL Urine Opiates Level (NEGATIVE) Ur Methadone (NEGATIVE) Urine Barbiturates (NEGATIVE) Ur Phencyclidine (PCP) (NEGATIVE) Urine Amphetamine (NEGATIVE) U Benzodiazepine Level (NEGATIVE) Urine Cocaine (NEGATIVE) Urine Marijuana (THC) (NEGATIVE) Ethyl Alcohol < 10 (0-10) mg/dL Monoscreen NEGATIVE (Negative) Influenza Type A Ag (NEGATIVE) Influenza Type B Ag (NEGATIVE) SARS-CoV-2 Ag (Rapid) (NEGATIVE) 01/28/22 Range/Units 09:30 WBC 18.9 H (4.0-10.5) K/mm3 RBC 3.69 L (4.1-5.6) M/mm3 Hgb 10.1 L (12.5-18.0) gm/dl Hct 31.6 L (42-50) % MCV 85.6 (78-100) fl MCH 27.4 (26-32) pg MCHC 32.0 (32-36) g/dl RDW 14.9 H (11.5-14.0) % Plt Count 287 (150-450) K/mm3 MPV 9.9 (7.5-11.0) fl Segmented Neutrophils 57 (36.-66.) % Band Neutrophils 5 H (0.0-2.0) % Lymphocytes (Manual) 13 L (24-44) % Monocytes (Manual) 23 H (0.0-12.0) % Eosinophils (Manual) 2 (0.00-3.0) % Platelet Estimate NORMAL (NORMAL) RBC Morphology NORMAL Sodium (137-145) mmol/L Potassium (3.5-5.1) mmol/L Chloride (98-107) mmol/L Carbon Dioxide (22-30) mmol/L Anion Gap (5-15) MEQ/L BUN (9-20) mg/dL Creatinine (0.66-1.25) mg/dL Estimated GFR ML/MIN Glucose (74-106) mg/dL Lactic Acid (0.4-2.0) Calcium (8.4-10.2) mg/dL Total Bilirubin (0.2-1.3) mg/dL AST (17-59) U/L ALT (0-50) U/L Alkaline Phosphatase (38-126) U/L Serum Total Protein (6.3-8.2) g/dL Albumin (3.5-5.0) g/dL Urine Color (YELLOW) Urine Appearance (CLEAR) Urine pH (5-6) Ur Specific [place] (1.005-1.025) Urine Protein (Negative) Urine Ketones (NEGATIVE) Urine Blood (0-5) Jose/ul Urine Nitrite (NEGATIVE) Urine Bilirubin (NEGATIVE) Urine Urobilinogen (0-1) mg/dL Ur Leukocyte Esterase (NEGATIVE) Urine WBC (Auto) (0-5) /HPF Urine RBC (Auto) (0-2) /HPF U Epithel Cells (Auto) (FEW) /HPF Urine Culture Reflexed (NO) Urine Glucose (NEGATIVE) mg/dL Urine Opiates Level (NEGATIVE) Ur Methadone (NEGATIVE) Urine Barbiturates (NEGATIVE) Ur Phencyclidine (PCP) (NEGATIVE) Urine Amphetamine (NEGATIVE) U Benzodiazepine Level (NEGATIVE) Urine Cocaine (NEGATIVE) Urine Marijuana (THC) (NEGATIVE) Ethyl Alcohol (0-10) mg/dL Monoscreen (Negative) Influenza Type A Ag (NEGATIVE) Influenza Type B Ag (NEGATIVE) SARS-CoV-2 Ag (Rapid) (NEGATIVE) - Progress Progress: improved Progress Note: 03/10/21 10:36 CAT scan of the head without contrast is negative for any acute findings. Counseled pt/family regarding: lab results, diagnosis, rad results - Departure Departure Disposition: Home Clinical Impression: Syncope, Medication reaction Condition: Stable Critical Care Time: No Referrals: CHENTE BARRERA [Primary Care Provider] - Follow up/PCP as directed Additional Instructions: Call your primary care doctor today to update them on episode that occurred in the hospital. Ask him for referral to a neurologist if indicated. Stop the new medication (gabapentin) and ask your primary care doctor for instructions.
[2021-03-10] MEDS ORDERED: Sodium Chloride 0.9% 1000 ML 1,000 ML IV STA (09:29)
[2021-03-10] MEDS ORDERED: Zofran 4 MG/2 ML VIAL ONE (09:41)
[2021-03-10] MEDS ORDERED: Zofran 4 MG/2 ML VIAL IV ONE (09:41)
[2021-03-10] MEDS ORDERED: Sodium Chloride 0.9% 1000 ML 1,000 ML ONE ×2 (09:43→11:56)
[2021-03-10 09:58] LABS: Hematocrit 31.6 % (42-50); Hemoglobin 10.1 gm/dl (12.5-18.0); Mean Cell Volume 85.6 fl (78-100); Mean Corpuscular Hemoglobin 27.4 pg (26-32); Mean Platelet Volume 9.9 fl (7.5-11.0); Platelet Count 287 K/mm3 (150-450); Red Blood Count 3.69 M/mm3 (4.1-5.6); Red Cell Distribution Width 14.9 % (11.5-14.0); White Blood Count 18.9 K/mm3 (4.0-10.5)
[2021-03-10 10:02] LABS: ALBUMIN 3.2 g/dL (3.5-5.0); ALKALINE PHOSPHATASE 103 U/L (38-126); ANION GAP 17.4 MEQ/L (5-15); BLOOD UREA NITROGEN 21 mg/dL (9-20); CHLORIDE 102 mmol/L (98-107); Calcium 8.5 mg/dL (8.4-10.2); Carbon Dioxide 19 mmol/L (22-30); Creatinine 1 1.34 mg/dL (0.66-1.25); EST GLOMERULAR FILTRATION RATE 54.9 ML/MIN; ETHYL ALCOHOL < 10 mg/dL (0-10); Glucose 173 mg/dL (74-106); Potassium 4.1 mmol/L (3.5-5.1); SGOT/AST 83 U/L (17-59); SGPT/ALT 103 U/L (0-50); SODIUM 134 mmol/L (137-145); Total Protein 6.8 g/dL (6.3-8.2)
--- NOTE | 2021-03-10 10:05 | XRAY ---
Indication: Seizure. Syncope. Multiple contiguous axial images obtained through the head without contrast. Comparison: December 07, 2009. Age-appropriate global atrophy. No acute intracranial hemorrhage, abnormal extra-axial fluid collection, or mass effect. Fourth ventricle is midline without hydrocephalus. Morton-white matter differentiation preserved. Bony calvarium intact. Visualized paranasal sinuses and mastoid air cells are clear. Impression: Continued negative CT head without contrast exam.
[2021-03-10 10:09] LABS: INFLUENZA A NEGATIVE (NEGATIVE); INFLUENZA B NEGATIVE (NEGATIVE)
[2021-03-10 10:22] LABS: COVID AG -BINAX NOW RAPID TEST NEGATIVE (NEGATIVE)
[2021-03-10 10:29] LABS: BAND 5 % (0.0-2.0); Eosinophil 2 % (0.00-3.0); Lymphocytes 13 % (24-44); Monocyte 23 % (0.0-12.0); Neutrophils 57 % (36.-66.); Platelet Estimate NORMAL (NORMAL); Total Cells Counted 100
[2021-03-10] MEDS ORDERED: Sodium Chloride 0.9% 1000 ML 1,000 ML IV SCH (11:45)
[2021-03-10 11:55] LABS: Appearance CLOUDY (CLEAR); Bilirubin NEGATIVE (NEGATIVE); Blood SMALL Ery/ul (0-5); Epithelial Cells RARE /HPF (FEW); Glucose NEGATIVE (NEGATIVE); Ketones NEGATIVE (NEGATIVE); Leukocyte Esterase NEGATIVE (NEGATIVE); Nitrite NEGATIVE (NEGATIVE); Protein,Urine Dip 30 (Negative); RBC 0-2 /HPF (0-2); Specific Gravity 1.011 (1.005-1.025); Urobilinogen NEGATIVE mg/dL (0-1)
[2021-03-10 12:12] LABS: Amphetamine,Urine NEGATIVE (NEGATIVE); Barbiturate,Urine NEGATIVE (NEGATIVE); Benzodiazepine,Urine NEGATIVE (NEGATIVE); Cocaine,Urine NEGATIVE (NEGATIVE); Methadone,Urine NEGATIVE (NEGATIVE); Opiate,Urine NEGATIVE (NEGATIVE); PCP,Urine NEGATIVE (NEGATIVE); THC,Urine NEGATIVE (NEGATIVE)
[2021-03-10 12:53] LABS: Hematocrit 30.5 % (42-50); Hemoglobin 9.5 gm/dl (12.5-18.0); Mean Cell Volume 87.4 fl (78-100); Mean Corpuscular Hemoglobin 27.2 pg (26-32); Mean Corpuscular Hgb Concent. 31.1 g/dl (32-36); Mean Platelet Volume 9.7 fl (7.5-11.0); Platelet Count 261 K/mm3 (150-450); Red Blood Count 3.49 M/mm3 (4.1-5.6); White Blood Count 18.7 K/mm3 (4.0-10.5)
[2021-03-10 13:04] LABS: Slide Review 1 NO
[2021-03-10 13:22] VITALS: BP 126/44; PULSE 70; O2SAT 100
== END 2021-03-10 13:23 | disposition home or self-care (01) ==
LOC: ED 09:14
DX: R55 Syncope and collapse (principal); T42.6X5A Adverse effect of other antiepileptic and sedative-hypnotic drugs, initial encounter; R56.9 Unspecified convulsions; R51.9 Headache, unspecified; E78.5 Hyperlipidemia, unspecified
CPT/HCPCS: 36000; 36415; 70450; 80053; 80307; 81001; 83605; 85025; 86308; 87077; 87086; 87186; 87400; 93005; 93041; 94760; 96360; 96374; 99000; 99285; G0480; J2405

== ENCOUNTER 2023-11-14 11:46 | Inpatient (IN) | payer MEDICARE, OTHER ==
--- NOTE | 2023-11-14 11:49 | ERPHSYRPT ---
- History of Present Illness Time Seen by Provider: 11/14/23 11:49 Source: patient, family Exam Limitations: no limitations Physician History: This is an 78-year-old white male patient of Dr. Crocker who was brought over to the emergency department because he was getting ready to undergo an MRI in the radiology department. He had an issue with urinary retention postoperatively from a left shoulder replacement surgery 3 days ago. He was also found to have a very rapid heart rate. On arrival to the emergency department his twelve-lead EKG showed atrial fibrillation with RVR. Patient denied chest pain but there was some mild tightness present. He also denies shortness of breath. His main complaint is pain in the left shoulder. In addition he had some complaints of urinary retention. Patient's systolic blood pressure on arrival to the emergency department 122. His room air oxygen saturation levels are 94 to 95%. There are no new medications other than pain medication postoperatively. Timing/Duration: today Activities at Onset: none Location: substernal, central, other (Tightness) Chest Pain Radiation: no radiation Severity of Pain-Max: mild Severity of Pain-Current: mild Nitro Today/Relief: no nitro taken today Aspirin Treatment Today: no aspirin today Associated Symptoms: denies symptoms, No shortness of breath, No chest pain Prior Chest Pain/Cardiac Workup: no prior chest pain, no prior cardiac workup Allergies/Adverse Reactions: ibuprofen [From Motrin] Allergy (Intermediate, Verified 11/14/23 11:48) Hoarseness of voice Sulfa (Sulfonamide Antibiotics) Adverse Reaction (Verified 11/14/23 11:48) Home Medications: No Reportable Medications [No Reported Medications] 11/14/23 [History] Hx Tetanus, Diphtheria Vaccination/Date Given: Yes Hx Influenza Vaccination/Date Given: Yes Hx Pneumococcal Vaccination/Date Given: Yes Travel Risk - International Travel Have you traveled outside of the country in past 3 weeks: No - Emerging Infectious Disease Are you exhibiting symptoms associated with any current EIDs: No - Review of Systems Constitutional: No Symptoms Eyes: No Symptoms Ears, Nose, & Throat: No Symptoms Respiratory: No Symptoms Cardiac: Chest Pain (Described as a mild tightness anteriorly central, substernal without radiation) Abdominal/Gastrointestinal: No Symptoms Genitourinary Symptoms: No Symptoms Musculoskeletal: No Symptoms Skin: No Symptoms Neurological: No Symptoms Psychological: No Symptoms Endocrine: No Symptoms Hematologic/Lymphatic: No Symptoms Immunological/Allergic: No Symptoms All Other Systems: Reviewed and Negative - Past Medical History Pertinent Past Medical History: Yes Neurological History: No Pertinent History ENT History: Cataracts, Macular Degeneration, Other Cardiac History: High Cholesterol Respiratory History: Pneumonia Endocrine Medical History: No Pertinent History Musculoskeletal History: Osteoarthritis GI Medical History: No Pertinent History History: No Pertinent History Psycho-Social History: No Pertinent History Male Reproductive Disorders: No Pertinent History Other Medical History: Hx bilateral shoulder replacements 2016 and 2017. Glaucoma. Toenail fungus. Diverticulitis - Past Surgical History Past Surgical History: Yes Neuro Surgical History: No Pertinent History Cardiac: No Pertinent History Respiratory: No Pertinent History Gastrointestinal: No Pertinent History Genitourinary: No Pertinent History Musculoskeletal: Orthopedic Surgery Male Surgical History: No Pertinent History Other Surgical History: both shoulders-hemis Significant Family History: no pertinent family hx - Social History Smoking Status: Never smoker Exposure to second hand smoke: No Drug Use: none Patient Lives Alone: No - Nursing Vital Signs Nursing Vital Signs: Initial Vital Signs Pulse Rate 109 H 11/14/23 11:47 Respiratory Rate 22 11/14/23 11:47 Blood Pressure 122/95 11/14/23 11:47 O2 Sat by Pulse Oximetry 94 L 11/14/23 11:47 Pain Scale Pain Intensity 0 - Physical Exam General Appearance: no apparent distress, alert, anxiety Eye Exam: PERRL/EOMI, eyes nml inspection Ears, Nose, Throat Exam: normal ENT inspection, moist mucous membranes Neck Exam: normal inspection, non-tender, supple, full range of motion Respiratory Exam: normal breath sounds, lungs clear, respiratory distress, airway intact, No chest tenderness Cardiovascular Exam: tachycardia, irregular Gastrointestinal/Abdomen Exam: soft, normal bowel sounds, No tenderness Rectal Exam: not done Back Exam: normal inspection, normal range of motion, No CVA tenderness, No simon tebral tenderness Extremity Exam: pelvis stable, other (Patient's left shoulder was recently operated on it and is in a shoulder harness device and he cannot move the left shoulder/left upper extremity) Neurologic Exam: alert, 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, cooperative, director of compliance II-XII nml as tested, sensation nml Skin Exam: normal color, warm, dry Lymphatic Exam: No adenopathy SpO2 Interpretation: normal O2 Delivery: Room Air - Course Nursing assessment & vital signs reviewed: Yes EKG Interpreted by Me: RATE (137), A-fib, Non-specific ST Changes, Other (No acute ischemic changes on today's twelve-lead EKG. The QTc is 428.) Ordered Tests: Active Orders 24 hr Category Date Time Status EKG-ER Only STAT Care 11/14/23 12:00 Active IV Insertion STAT Care 11/14/23 12:00 Active Pulse Oximetry (ED) STAT Care 11/14/23 12:00 Active CHEST WITH CONTRAST [CT] Stat Exams 11/14/23 12:49 Completed BLOOD CULTURE Stat Lab 11/14/23 15:12 Received CBC W DIFF Stat Lab 11/14/23 12:15 Completed CMP Stat Lab 11/14/23 12:15 Completed D-DIMER QUANTITATIVE Stat Lab 11/14/23 12:15 Completed Lactic Acid Stat Lab 11/14/23 16:28 Completed MAGNESIUM Stat Lab 11/14/23 12:15 Completed Manual Differential NC Stat Lab 11/14/23 12:15 Completed NT PRO BNPII Stat Lab 11/14/23 12:15 Completed PROTIME WITH INR Stat Lab 11/14/23 12:15 Completed Pathologist Review Stat Lab 11/14/23 12:15 Completed TROPONIN Q4H Lab 11/14/23 12:15 Completed TROPONIN Q4H Lab 11/14/23 15:12 Completed TROPONIN Q4H Lab 11/14/23 20:15 Ordered UA W/RFX UR CULTURE Stat Lab 11/14/23 12:05 Received Medication Summary Generic Name Dose Route Start Last Admin Trade Name Freq PRN Reason Stop Dose Admin Sodium Chloride 1,000 mls @ 100 mls/hr 11/14/23 12:00 11/14/23 12:07 Sodium Chloride 0.9% 1000 Ml IV 12/14/23 11:59 100 mls/hr .Q10H YOANA Administration Sodium Chloride 1,000 mls @ 100 mls/hr 11/14/23 12:15 11/14/23 12:26 Sodium Chloride 0.9% 1000 Ml IV 12/14/23 12:14 Not Given .Q10H YOANA Diltiazem HCl 100 mls @ 5 mls/hr 11/14/23 12:30 11/14/23 16:02 Cardizem Drip 100 Mg/100 Ml D5w IV 12/14/23 12:29 17.5 mg/hr .Q20H PRN 17.5 mls/hr HEART RATE/ A-FIB Titration Protocol 5 MG/HR Azithromycin 500 mg/ Sodium 250 mls @ 125 mls/hr 11/14/23 17:00 11/14/23 17:04 Chloride IV 11/14/23 18:59 125 mls/hr STAT ONE Administration Discontinued Medications Generic Name Dose Route Start Last Admin Trade Name Michael PRN Reason Stop Dose Admin Diltiazem HCl Confirm 11/14/23 11:55 Diltiazem Hcl Iv 5 Mg/Ml Vial Administered 11/14/23 11:56 Dose 50 mg IV .STK-MED ONE Diltiazem HCl 30 mg 11/14/23 12:00 11/14/23 12:05 Diltiazem Hcl Iv 5 Mg/Ml Vial IV 11/14/23 12:01 Not Given STAT ONE Diltiazem HCl 30 mg 11/14/23 11:58 11/14/23 11:58 Diltiazem Hcl Iv 5 Mg/Ml Vial IV 11/14/23 11:59 30 mg STAT ONE Administration Diltiazem HCl 20 mg 11/14/23 13:54 11/14/23 13:58 Diltiazem Hcl Iv 5 Mg/Ml Vial IV 11/14/23 13:55 20 mg STAT ONE Administration Diltiazem HCl Confirm 11/14/23 13:58 Diltiazem Hcl Iv 5 Mg/Ml Vial Administered 11/14/23 13:59 Dose 50 mg IV .STK-MED ONE Furosemide 40 mg 11/14/23 14:17 11/14/23 14:33 Furosemide 40 Mg/4 Ml Vial IV 11/14/23 14:18 40 mg STAT ONE Administration Furosemide Confirm 11/14/23 14:33 Furosemide 40 Mg/4 Ml Vial Administered 11/14/23 14:34 Dose 40 mg .ROUTE .STK-MED ONE Sodium Chloride Confirm 11/14/23 11:55 Sodium Chloride 0.9% 1000 Ml Administered 11/14/23 11:56 Dose 1,000 mls @ ud .ROUTE .STK-MED ONE Azithromycin Confirm 11/14/23 17:03 Zithromax 500 Mg/ 250 Ml Nacl Premix Administered 11/14/23 17:04 Dose 500 mg in 250 mls @ ud IV .STK-MED ONE Morphine Sulfate 2 mg 11/14/23 12:00 11/14/23 12:29 Morphine Sulfate 2 Mg/Ml Inj IV 11/14/23 12:01 2 mg STAT ONE Administration Morphine Sulfate Confirm 11/14/23 12:27 Morphine Sulfate 2 Mg/Ml Inj Administered 11/14/23 12:28 Dose 2 mg .ROUTE .STK-MED ONE Ondansetron HCl 4 mg 11/14/23 12:02 11/14/23 12:29 Ondansetron Hcl 4 Mg/2 Ml Vial IV 11/14/23 12:03 4 mg STAT ONE Administration Ondansetron HCl Confirm 11/14/23 12:26 Ondansetron Hcl 4 Mg/2 Ml Vial Administered 11/14/23 12:27 Dose 4 mg .ROUTE .STK-MED ONE Lab/Rad Data: Laboratory Result Diagrams 11/14/23 12:15 11/14/23 12:15 Laboratory Results 11/14/23 11/14/23 11/14/23 Range/Units 16:28 15:12 12:15 WBC (4.23-9.07) x10^3/uL RBC (4.63-6.08) x10^6/uL Hgb (13.7-17.5) g/dL Hct (40.1-51.0) % MCV (79.0-92.2) fL MCH (25.7-32.2) pg MCHC (32.3-36.5) g/dL RDW (11.6-14.4) % Plt Count (163-337) x10^3/uL MPV (9.4-12.4) fL Segmented Neutrophils (34.0-67.9) % Band Neutrophils (0.0-2.0) % Lymphocytes (Manual) (21.8-53.1) % Monocytes (Manual) (5.3-12.2) % Atypical Lymphocytes % Platelet Estimate (NORMAL) RBC Morphology Macrocytosis Smear Path Review PT (9.4-12.5) SECONDS INR (0.8-3.0) D-Dimer (0.0-0.50) mg/L Sodium 135 (135-145) mmol/L Potassium 4.8 (3.5-5.1) mmol/L Chloride 111 H (98-107) mmol/L Carbon Dioxide 11 L* (22-30) mmol/L Anion Gap 17.0 H (5-15) MEQ/L BUN 31 H (9-20) mg/dL Creatinine 1.63 H (0.66-1.25) mg/dL Estimated GFR 42.3 ML/MIN Glucose 163 H (74-106) mg/dL Lactic Acid 1.0 (0.4-2.0) Calcium 8.6 (8.4-10.2) mg/dL Magnesium 1.9 (1.6-2.3) mg/dL Total Bilirubin 0.80 (0.2-1.3) mg/dL AST 25 (17-59) U/L ALT 18 (0-50) U/L Alkaline Phosphatase 60 (38-126) U/L Troponin I 0.039 H* 0.030 (0.000-0.033) ng/mL NT-Pro-B Natriuret Pep 1810 (<300) pg/mL Serum Total Protein 7.3 (6.3-8.2) g/dL Albumin 3.9 (3.5-5.0) g/dL 11/14/23 11/14/23 Range/Units 12:15 12:15 WBC 36.8 H* (4.23-9.07) x10^3/uL RBC 3.56 L (4.63-6.08) x10^6/uL Hgb 9.8 L (13.7-17.5) g/dL Hct 30.5 L (40.1-51.0) % MCV 85.7 (79.0-92.2) fL MCH 27.5 (25.7-32.2) pg MCHC 32.1 L (32.3-36.5) g/dL RDW 15.4 H (11.6-14.4) % Plt Count 176 (163-337) x10^3/uL MPV 11.1 (9.4-12.4) fL Segmented Neutrophils 37 (34.0-67.9) % Band Neutrophils 1 (0.0-2.0) % Lymphocytes (Manual) 6 L (21.8-53.1) % Monocytes (Manual) 55 H (5.3-12.2) % Atypical Lymphocytes 1 % Platelet Estimate NORMAL (NORMAL) RBC Morphology ABNORMAL Macrocytosis 1+ Smear Path Review SEE SEPARATE REPORT PT 12.5 (9.4-12.5) SECONDS INR 1.16 (0.8-3.0) D-Dimer 1.27 H* (0.0-0.50) mg/L Sodium (135-145) mmol/L Potassium (3.5-5.1) mmol/L Chloride (98-107) mmol/L Carbon Dioxide (22-30) mmol/L Anion Gap (5-15) MEQ/L BUN (9-20) mg/dL Creatinine (0.66-1.25) mg/dL Estimated GFR ML/MIN Glucose (74-106) mg/dL Lactic Acid (0.4-2.0) Calcium (8.4-10.2) mg/dL Magnesium (1.6-2.3) mg/dL Total Bilirubin (0.2-1.3) mg/dL AST (17-59) U/L ALT (0-50) U/L Alkaline Phosphatase (38-126) U/L Troponin I (0.000-0.033) ng/mL NT-Pro-B Natriuret Pep (<300) pg/mL Serum Total Protein (6.3-8.2) g/dL Albumin (3.5-5.0) g/dL - Progress Progress: improved, re-examined Air Movement: good Progress Note: 11/14/23 12:31 My medical decision making and the assignment of moderate to high complexity of this patient's medical issue today is based on review of the patient's past medical history, review of patient's medication list, review of patient drug allergy list, history present illness and physical findings on examination. The workup in this patient includes placement of intravenous line, infusion of 30 mg intravenous Cardizem, CBC, CMP, magnesium level, troponin level, D-dimer level, urinalysis and BNP. Differential diagnosis includes but is not limited to electrolyte abnormalities, arrhythmia, myocardial infarction, congestive heart failure, dehydration, urinary tract infection, pulmonary embolus 11/14/23 15:09 I interpreted the patient's laboratory data results. Based on the laboratory data results, the patient had an elevated D-dimer level and we proceeded to order a CT scan of the chest with contrast. Patient also had over 36,000 white count. Laboratory followed up with me and stated that the patient does have a leukocytosis and a significant portion of that 36,000 white count are monocytes consistent with mycoplasma infection. Patient has a high normal troponin level. We are awaiting the second, repeat, troponin level. His heart rate is responding to the Cardizem. CT scan of the chest with contrast was interpreted by the radiologist and I reviewed the impression. The impression states no obvious pulmonary embolus. Evaluation is limited by respirations. There is a new moderate left lower lobe segmental atelectasis with left hemidiaphragm elevation. 11/14/23 16:31 Repeat twelve-lead EKG on 11/14/2023 1620 reveals heart rate of 95 bpm. The computer readout shows an atrial flutter rhythm the computer says is ST elevation consider inferior injury however, I am not seeing definite ST elevation. I will send this twelve-lead EKG to cardiology for evaluation. 11/14/23 17:[address] Joe, our telehospitalist on at this time. I reviewed the patient history, presenting complaint, physical findings on examination, twelve- lead EKG and laboratory data results as well as the results of the urinalysis study and the CT scan of the chest with contrast and lactic acid level. I also discussed with him the thoughts on this patient's elevated white count and the pathologist interpretation that it might be associated with mycoplasma pneumonia. No infiltrate is on the chest CT scan. We will provide a single dose of azithromycin. I also spoke with Dr. Molina, our tele forest and conservation worker. He reviewed the two twelve-lead EKG and the 2 troponin levels that were drawn approximately 2-1/2 to 3 hours apart. He feels that there is no evidence of any acute ischemia and is comfortable keeping this patient here. Dr. Joe is also comfortable keeping this patient here. He agrees to it that this patient to the hospital. Blood Culture(s) Obtained: No Antibiotics given: No Discussed with DrItzel: Other (I spoke with Dr. Joe, telehospitalist as well as Dr. Molina, tele-forest and conservation worker) Counseled pt/family regarding: lab results, diagnosis Medical Desision Making - Independent Historian Additional History obtained from: Spouse - Discussion of managment Care discussed with:: hospitalist Reviewed:: Test results, Need for additional workup Agreed on:: decision to admit Will see patient: in hospital - Diagnostic Testing Diagnostic test were ordered, analyzed, and reviewed by me: Yes Radiological Interpretation: Reviewed by me, Teleradiologist Report - Risk of complications The pt has a high risk of morbidity or mortality based on: Decision regarding hospitilization or escalation of hosp level of care - Departure Departure Disposition: In-patient Admission Clinical Impression: Leukocytosis, Atrial fibrillation with RVR Condition: Fair Critical Care Time: Yes Critical Care Time(excluding separately billable procedures): Critical 30-74 mins (60) Referrals: GUSTAVO CROCKER [Primary Care Provider] - Follow up/PCP as directed
[2023-11-14] MEDS ORDERED: Cardizem IV 50 MG/10 ML IV ONE ×2 (11:55→13:58)
[2023-11-14] MEDS ORDERED: Sodium Chloride 0.9% 1000 ML 1,000 ML ONE (11:55)
[2023-11-14] MEDS: Cardizem IV 50 MG/10 ML IV ONE ×3 (11:58→13:58)
[2023-11-14] MEDS: Sodium Chloride 0.9% 1000 ML 1,000 ML IV SCH ×3 (12:07→18:18)
[2023-11-14 12:20] LABS: Hematocrit 30.5 % (40.1-51.0); Hemoglobin 9.8 g/dL (13.7-17.5); Mean Cell Volume 85.7 fL (79.0-92.2); Mean Corpuscular Hemoglobin 27.5 pg (25.7-32.2); Mean Corpuscular Hgb Concent. 32.1 g/dL (32.3-36.5); Mean Platelet Volume 11.1 fL (9.4-12.4); Platelet Count 176 x10^3/uL (163-337); Red Blood Count 3.56 x10^6/uL (4.63-6.08); Red Cell Distribution Width 15.4 % (11.6-14.4)
[2023-11-14] MEDS ORDERED: Zofran 4 MG/2 ML VIAL ONE (12:26)
[2023-11-14] MEDS ORDERED: MORPHINE SULFATE 2 MG INJ ONE (12:27)
[2023-11-14] MEDS: MORPHINE SULFATE 2 MG INJ IV ONE (12:29)
[2023-11-14] MEDS: Zofran 4 MG/2 ML VIAL IV ONE (12:29)
[2023-11-14] MEDS: CARDIZEM DRIP 100 MG/100 ML D5W 100 ML IV PRN (12:31)
[2023-11-14 12:38] LABS: INR 1.16 (0.8-3.0); PROTIME 12.5 SECONDS (9.4-12.5)
[2023-11-14 12:45] LABS: D-DIMER QUANTITATIVE 1.27 mg/L (0.0-0.50)
[2023-11-14 12:46] LABS: ALBUMIN 3.9 g/dL (3.5-5.0); BILIRUBIN,TOTAL 0.8 mg/dL (0.2-1.3); Calcium 8.6 mg/dL (8.4-10.2); Creatinine 1 1.63 mg/dL (0.66-1.25); EST GLOMERULAR FILTRATION RATE 42.3 ML/MIN; MAGNESIUM 1.9 mg/dL (1.6-2.3); Potassium 4.8 mmol/L (3.5-5.1); TROPONIN 0.03 ng/mL (0.000-0.033); Total Protein 7.3 g/dL (6.3-8.2)
[2023-11-14 12:56] LABS: White Blood Count 36.8 x10^3/uL (4.23-9.07)
[2023-11-14 13:54] LABS: ATYPICAL LYMPHS 1 %; BAND 1 % (0.0-2.0); Lymphocytes 6 % (21.8-53.1); Macrocytosis 1+; Monocyte 55 % (5.3-12.2); Neutrophils 37 % (34.0-67.9); Platelet Estimate NORMAL (NORMAL); Total Cells Counted 100
[2023-11-14 13:56] LABS: Pathologist Review SEE SEPARATE REPORT
[2023-11-14] MEDS: Lasix 40 MG/4 ML IV ONE (14:33)
[2023-11-14] MEDS ORDERED: Lasix 40 MG/4 ML ONE (14:33)
--- NOTE | 2023-11-14 14:37 | XRAY ---
Indication: Postop chest pain. Elevated d-dimer. New onset atrial fibrillation. Multiple contiguous axial images obtained through the chest using 100 cc Isovue 370 contrast and PE protocol. Comparison: February 26, 2020 Good opacification pulmonary arteries to include the lobar and segmental branches. Respiration artifact limits evaluation of the more distal pulmonary arteries. No obvious pulmonary embolus. Heart not enlarged. Aorta is normal in course and caliber. Stable tiny mediastinal and right hilar calcified nodes. No pathologic mediastinal/hilar lymphadenopathy. Lungs demonstrates new moderate left lung base subsegmental atelectasis with mild left hemidiaphragm elevation. Right lower lobe demonstrates increasing subsegmental atelectasis/scarring. Stable tiny right middle lobe calcified granuloma. No infiltrate, effusion, or pneumothorax. Bony thorax intact again with osteopenia, mild degenerative changes throughout the spine, and bilateral shoulder arthroplasty. I believe there has been interval revision left shoulder arthroplasty with new bipolar prosthesis, soft tissue swelling, and diffuse soft tissue emphysema. Limited upper abdomen again demonstrates tiny hepatic/splenic calcified granulomas. Impression: 1. Pulmonary embolus evaluation limited by respiration. No obvious pulmonary embolus. 2. New moderate left lower lobe subsegmental atelectasis with left hemidiaphragm elevation. 3. New revision left shoulder arthroplasty with postoperative changes. 4. Again chronic bony findings and old granulomatous disease.
[2023-11-14] MEDS ORDERED: Zithromax 500 MG/ 250 ML NaCl Premix 500 MG/250 ML IVPB IV ONE (17:03)
[2023-11-14] MEDS: ZITHROMAX IV*** 500 MG in Sodium Chloride 0.9% 250 ML 250 ML IV ONE (17:04)
[2023-11-14] MEDS ORDERED: MORPHINE SULFATE 4 MG INJ IV PRN (17:29)
[2023-11-14] MEDS ORDERED: Zofran 4 MG/2 ML VIAL IV PRN (17:29)
[2023-11-14] MEDS ORDERED: TYLENOL 325 MG PO PRN (17:29)
--- NOTE | 2023-11-14 17:37 | PCM.HP ---
History of Present Illness - Chief Complaint Chief Complaint: AFIB RVR/SEPSIS Date: 11/14/23 History of Present Illness: is a 78 year old male with a pmhx of cataracts, macular degeneration, and bilateral shoulder replacements, most recently a left total replacement performed by Dr. Hendrickson three days ago. Patient reports urinary retention since his surgical procedure. Upon arrival to the ED patient was noted with AFIB RVR on his EKG. He is completely asymptomatic with this. His only complaint was low abdominal pain and pressure from his urinary retention which was relieved by placement of a rene catheter (975mls out with placement). He also has compla ints of 6/10 left shoulder pain from recent surgery. Denies fever,cough, sob, cp, abdominal pain, VALENTINO, dizziness, N/V/D. Patient meeting sepsis criteria upon presentation to ED with HR up to 156, WBC of 36.8, fever, WILBERTO, and hypotension. DDimer elevated at 1.27 - CT negative for PE demonstrating new moderate left lower lobe subsegmental atelectasis with left hemidiaphragm elevation and new revision left shoulder arthroplasty with postoperative changes soft tissue swelling, and diffuse soft tissue emphysema. EKG initially showing A-fib, Non-specific ST Changes, Other (No acute ischemic changes on today's twelve-lead EKG. Repeat twelve-lead EKG on 11/14/2023 1620 reveals heart rate of 95 bpm. The computer readout shows an atrial flutter rhythm the computer says is ST elevation consider inferior injury. [employer]ne[employer] Dr. Herrmann consulted he reviewed the two twelve-lead EKG and the 2 troponin levels that were drawn approximately 2-1/2 to 3 hours apart. He feels that there is no evidence of any acute ischemia and is comfortable keeping this patient here. Patient with leukocytosis and a significant portion of that 36,000 white count are monocytes consistent with mycoplasma infection. No infiltrate is on the chest CT scan. Physical exam is unremarkable. Lung sounds clear. Surgical incision CDI with no surrounding erythema, drainage, induration, or streaking. Patient started on Cardizem drip, bicarb drip, and Azithromycin. Admission for AFIB RVR/ sepsis with unknown source of infection, and WILBERTO. . - Review of Systems Constitutional: Fever Eyes: No Symptoms Ears, Nose, & Throat: No Symptoms Respiratory: No Symptoms Cardiac: No Symptoms Abdominal/Gastrointestinal: Abdominal Pain Genitourinary Symptoms: Urinary Retention Musculoskeletal: Joint Pain (left shoulder ) Skin: Other (left shoulder surgical incision with surgical dressing CDI) Neurological: No Symptoms Psychological: No Symptoms Endocrine: No Symptoms Hematologic/Lymphatic: No Symptoms Immunological/Allergic: No Symptoms Medications & Allergies Home Medications: Home Medication List Aspirin EC 81 mg [Ecotrin 81 mg] 81 mg PO DAILY 11/14/23 [History Confirmed 11/14/23] Oxycodone HCl 10 mg PO Q4HPRN PRN 11/14/23 [History Confirmed 11/14/23] Allergies/Adverse Reactions: Allergies Allergy/AdvReac Type Severity Reaction Status Date / Time ibuprofen [From Motrin] Allergy Intermediate Hoarseness Verified 11/14/23 11:48 of voice Penicillins AdvReac Mild Rash Verified 11/14/23 17:40 Sulfa (Sulfonamide AdvReac Verified 11/14/23 11:48 Antibiotics) - Past Medical History Past Medical History: Yes Neurological History: No Pertinent History ENT History: Cataracts, Macular Degeneration, Other Cardiac History: High Cholesterol Respiratory History: Pneumonia Endocrine Medical History: No Pertinent History Musculoskelatal History: Osteoarthritis GI Medical History: No Pertinent History History: No Pertinent History Pyscho-Social History: No Pertinent History Male Reproductive Disorders: No Pertinent History Comment: Hx bilateral shoulder replacements 2015 and 2017. Glaucoma. Toenail fungus. Diverticulitis - Past Surgical History Past Surgical History: Yes Neuro Surgical History: No Pertinent History Cardiac History: No Pertinent History Respiratory Surgery: No Pertinent History GI Surgical History: No Pertinent History Genitourinary Surgical Hx: No Pertinent History Musculskeletal Surgical Hx: Orthopedic Surgery Male Surgical History: No Pertinent History Other Surgical History: both shoulders-hemis Significant Family History: no pertinent family hx - Social History Smoking Status: Never smoker Exposure to second hand smoke: No Alcohol: None Drug Use: none - Social Determinants of Health Will the patient participate in the screening: Yes Do you worry about a steady place to live?: No Do you have any problems with any of the following?: No known problems In the past 12 months,have you had to go without utilities?: No Have you or anyone in your house had to go without enough: No Transportation Issues: No Has anyone in your support network made you feel unsafe?: No - Physical Exam Vital Signs: Vital Signs - 24 hr Pulse Pulse Resp BP BP Pulse Ox 11/14/23 17:34 101 H 24 134/99 11/14/23 17:00 103 H 26 H 111/57 93 L 11/14/23 16:50 98 H 25 H 105/55 93 L 11/14/23 16:40 93 H 26 H 92/58 93 L 11/14/23 16:30 96 H 24 94/62 93 L 11/14/23 16:20 115 H 33 H 97/60 94 L 11/14/23 16:10 101 H 33 H 98/61 92 L 11/14/23 16:09 113 H 28 H 103/63 94 L 11/14/23 16:02 96 H 30 H 80/62 93 L 11/14/23 16:00 111 H 29 H 89/58 93 L 11/14/23 15:50 98 H 26 H 113/54 93 L 11/14/23 15:40 106 H 27 H 113/73 93 L 11/14/23 15:20 114 H 29 H 115/71 93 L 11/14/23 15:11 117 H 34 H 125/89 93 L 11/14/23 15:01 116 H 30 H 117/81 11/14/23 15:00 125 H 26 H 117/81 93 L 11/14/23 14:50 117 H 26 H 115/74 92 L 11/14/23 14:40 117 H 32 H 107/63 93 L 11/14/23 14:30 119 H 30 H 103/65 94 L 11/14/23 14:20 115 H 30 H 110/57 93 L 11/14/23 14:10 117 H 30 H 103/66 92 L 11/14/23 14:00 107 H 30 H 101/70 91 L 11/14/23 13:50 137 H 32 H 100/71 93 L 11/14/23 13:48 131 H 31 H 110/73 93 L 11/14/23 13:31 133 H 26 H 105/74 11/14/23 13:20 144 H 34 H 105/74 93 L 11/14/23 13:10 129 H 32 H 102/74 93 L 11/14/23 13:00 129 H 22 96/63 93 L 11/14/23 12:50 132 H 24 120/70 94 L 11/14/23 12:40 128 H 34 H 111/73 93 L 11/14/23 12:31 157 H 34 H 120/75 11/14/23 12:30 124 H 34 H 120/75 92 L 11/14/23 12:20 157 H 36 H 109/73 93 L 11/14/23 12:10 124 H 37 H 87/65 93 L 11/14/23 12:05 95 11/14/23 12:00 121 H 24 83/66 94 L 11/14/23 11:50 156 H 156 H 22 122/95 95 11/14/23 11:47 109 H 22 122/95 94 L General Appearance: no apparent distress Neurologic Exam: alert, 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, cooperative Eye Exam: PERRL/EOMI Ears, Nose, Throat Exam: normal ENT inspection Neck Exam: normal inspection Respiratory Exam: normal breath sounds, lungs clear Cardiovascular Exam: irregular Gastrointestinal/Abdomen Exam: soft, normal bowel sounds Back Exam: normal inspection Extremity Exam: swelling (BLE (ankles) trace edema) Skin Exam: pale Results - Labs Lab/Micro Results: Lab Results-Last 24 Hours 11/14/23 11/14/23 11/14/23 Range/Units 12:15 12:15 12:15 WBC 36.8 H* (4.23-9.07) x10^3/uL RBC 3.56 L (4.63-6.08) x10^6/uL Hgb 9.8 L (13.7-17.5) g/dL Hct 30.5 L (40.1-51.0) % MCV 85.7 (79.0-92.2) fL MCH 27.5 (25.7-32.2) pg MCHC 32.1 L (32.3-36.5) g/dL RDW 15.4 H (11.6-14.4) % Plt Count 176 (163-337) x10^3/uL MPV 11.1 (9.4-12.4) fL Segmented Neutrophils 37 (34.0-67.9) % Band Neutrophils 1 (0.0-2.0) % Lymphocytes (Manual) 6 L (21.8-53.1) % Monocytes (Manual) 55 H (5.3-12.2) % Atypical Lymphocytes 1 % Platelet Estimate NORMAL (NORMAL) RBC Morphology ABNORMAL Macrocytosis 1+ Smear Path Review SEE SEPARATE REPORT PT 12.5 (9.4-12.5) SECONDS INR 1.16 (0.8-3.0) D-Dimer 1.27 H* (0.0-0.50) mg/L Sodium 135 (135-145) mmol/L Potassium 4.8 (3.5-5.1) mmol/L Chloride 111 H (98-107) mmol/L Carbon Dioxide 11 L* (22-30) mmol/L Anion Gap 17.0 H (5-15) MEQ/L BUN 31 H (9-20) mg/dL Creatinine 1.63 H (0.66-1.25) mg/dL Estimated GFR 42.3 ML/MIN Glucose 163 H (74-106) mg/dL Lactic Acid (0.4-2.0) Calcium 8.6 (8.4-10.2) mg/dL Magnesium 1.9 (1.6-2.3) mg/dL Total Bilirubin 0.80 (0.2-1.3) mg/dL AST 25 (17-59) U/L ALT 18 (0-50) U/L Alkaline Phosphatase 60 (38-126) U/L Troponin I 0.030 (0.000-0.033) ng/mL NT-Pro-B Natriuret Pep 1810 (<300) pg/mL Serum Total Protein 7.3 (6.3-8.2) g/dL Albumin 3.9 (3.5-5.0) g/dL 11/14/23 11/14/23 Range/Units 15:12 16:28 WBC (4.23-9.07) x10^3/uL RBC (4.63-6.08) x10^6/uL Hgb (13.7-17.5) g/dL Hct (40.1-51.0) % MCV (79.0-92.2) fL MCH (25.7-32.2) pg MCHC (32.3-36.5) g/dL RDW (11.6-14.4) % Plt Count (163-337) x10^3/uL MPV (9.4-12.4) fL Segmented Neutrophils (34.0-67.9) % Band Neutrophils (0.0-2.0) % Lymphocytes (Manual) (21.8-53.1) % Monocytes (Manual) (5.3-12.2) % Atypical Lymphocytes % Platelet Estimate (NORMAL) RBC Morphology Macrocytosis Smear Path Review PT (9.4-12.5) SECONDS INR (0.8-3.0) D-Dimer (0.0-0.50) mg/L Sodium (135-145) mmol/L Potassium (3.5-5.1) mmol/L Chloride (98-107) mmol/L Carbon Dioxide (22-30) mmol/L Anion Gap (5-15) MEQ/L BUN (9-20) mg/dL Creatinine (0.66-1.25) mg/dL Estimated GFR ML/MIN Glucose (74-106) mg/dL Lactic Acid 1.0 (0.4-2.0) Calcium (8.4-10.2) mg/dL Magnesium (1.6-2.3) mg/dL Total Bilirubin (0.2-1.3) mg/dL AST (17-59) U/L ALT (0-50) U/L Alkaline Phosphatase (38-126) U/L Troponin I 0.039 H* (0.000-0.033) ng/mL NT-Pro-B Natriuret Pep (<300) pg/mL Serum Total Protein (6.3-8.2) g/dL Albumin (3.5-5.0) g/dL - Radiology Impressions Radiology Exams & Impressions: Radiology Procedures Category Date Time Status CHEST WITH CONTRAST [CT] Stat Exams 11/14/23 12:49 Completed - Other Procedures and Tests Respiratory Therapy 11/14/23 17:29 EKG REPEAT IN AM Assessment/Plan (1) Sepsis Current Visit: Yes Status: Acute Assessment & Plan: -Unknown source of infection - leukocytosis and a significant portion of that 36,000 white count are monocytes consistent with mycoplasma infection -Meets criteria with leukocytosis, HR, fever, WILBERTO, hypotension -Blood cultures x 1 in ED - draw 2nd set -mycoplasma culture -discussed with lab- will perform pcr and also obtain sputum culture -procal -LA wnl -supplemental oxygen with spo2 goal > 92% - currently on RA -baseline -ABG if significant hypoxia/lethargy -Azithromycin -Target map >65 -chest ct negative for PE -demonstrates . New moderate left lower lobe subsegmental atelectasis with left hemidiaphragm elevation -lovenox - (2) Atrial fibrillation with RVR Current Visit: Yes Status: Acute Assessment & Plan: -Cardizem drip started in ED -Repeat EKG NS - drip discontinued -metoprolol 12.5 bid -TSH -optimize electrolytes -consider cardiac consult -monitor BP closely -PAIGE-VASC score of 2 for risk factor of age >75 Code(s): I48.91 - UNSPECIFIED ATRIAL FIBRILLATION (3) Leukocytosis Current Visit: Yes Status: Acute Assessment & Plan: -see sepsis for plan Code(s): D72.829 - ELEVATED WHITE BLOOD CELL COUNT, UNSPECIFIED (4) Acute on chronic kidney failure Current Visit: Yes Status: Acute Assessment & Plan: -Baseline creat around 1.4-1.5 - 1.63 on presentation -may be secondary to urinary retention -monitor renal/lytes closely -Bicarb drip at 100ml/hr -avoid nephrotoxic medications Code(s): N17.9 - ACUTE KIDNEY FAILURE, UNSPECIFIED; N18.9 - CHRONIC KIDNEY DISEASE, UNSPECIFIED (5) Status post replacement of left shoulder joint Current Visit: Yes Status: Acute Assessment & Plan: -Surgery with Dr. Hendrickson x 3 days ago -Surgical site CDI - no erythema, drainage, edema, streaking -CT scan demonstrates interval revision left shoulder arthroplasty with new bipolar prosthesis, soft tissue swelling, and diffuse soft tissue emphysema -continue home pain meds Code(s): Z96.612 - PRESENCE OF LEFT ARTIFICIAL SHOULDER JOINT (6) Urinary retention Current Visit: Yes Status: Acute Assessment & Plan: -Post surgery -F/C placed with 975ml residual out on insertion -UA with no signs of infection Code(s): R33.9 - RETENTION OF URINE, UNSPECIFIED Telemedicine Encounter - Telemedicine Encounter Telemedicine Encounter: "The entirety of this encounter was performed via Telemedicine" This visit was performed using real-time audio and video connection between my location and thepatients locationwith the assistance of a surrogateat the patients location. Written or verbal consent was obtained from the patient/guardian to perform this visit using[employer]elemedicine technology. Any patient questions regarding the telemedicine interaction were answered.
[2023-11-14] MEDS ORDERED: SODIUM BICARBONATE 50 MEQ/50 ML ABBOJECT IV ONE (17:48)
[2023-11-14] MEDS ORDERED: Dextrose 5%/Water IV Soln. 1000 ML 1,000 ML IV ONE (17:49)
[2023-11-14] MEDS: Sodium Bicarbonate 50 MEQ/50 ML VIAL*** 150 MEQ in Dextrose 5%/Water IV Soln. 1000 ML 1... IV SCH (18:24)
[2023-11-14] MEDS ORDERED: Docusate Sodium 100 MG PO PRN (19:05)
[2023-11-14 20:38] LABS: ALBUMIN 3.2 g/dL (3.5-5.0); ANION GAP 19.4 MEQ/L (5-15); BILIRUBIN,TOTAL 0.7 mg/dL (0.2-1.3); Creatinine 1 1.72 mg/dL (0.66-1.25); EST GLOMERULAR FILTRATION RATE 39.7 ML/MIN; Potassium 4.5 mmol/L (3.5-5.1); Total Protein 6.1 g/dL (6.3-8.2)
[2023-11-14] MEDS: Lopressor 25MG Tab PO SCH (21:30)
[2023-11-14 21:38] LABS: A-aADO2 50; ABG HEMOGLOBIN 9.5; ABG POTASSIUM 4.3 (3.5-5.1); ABG SITE RIGHT BRACHIAL; ARTERIAL BLD GAS O2 SATURATION 96.6 % (95-100); ARTERIAL BLOOD GAS BASE EXCESS -4.8 (-2.0-2.0); ARTERIAL BLOOD GAS FIO2 21 %; ARTERIAL BLOOD GAS PCO2 28 mmHg (35-45); ARTERIAL BLOOD GAS PO2 65 mmHg (75-100); ARTERIAL BLOOD GAS pH 7.43 (7.35-7.45); CARBOXYHEMOGLOBIN 1.6 % THgb (0.0-6.9); HCO3- 18.6 (22-28); HGB O2 SAT 94.4 g/dF (94-100); Methhemoglobin 0.7 % (1.4-1.5); paO2 pAO1 0.57
[2023-11-14] MEDS: Lactated Ringers 1,000 ML IV SCH (21:54)
[2023-11-15 04:35] LABS: Hematocrit 26.4 % (40.1-51.0); Hemoglobin 8.5 g/dL (13.7-17.5); Mean Cell Volume 83.5 fL (79.0-92.2); Mean Corpuscular Hemoglobin 26.9 pg (25.7-32.2); Mean Corpuscular Hgb Concent. 32.2 g/dL (32.3-36.5); Mean Platelet Volume 10.9 fL (9.4-12.4); Platelet Count 137 x10^3/uL (163-337); Red Blood Count 3.16 x10^6/uL (4.63-6.08); Red Cell Distribution Width 15.2 % (11.6-14.4); White Blood Count 18.8 x10^3/uL (4.23-9.07)
[2023-11-15 05:09] LABS: ALBUMIN 3.2 g/dL (3.5-5.0); ANION GAP 17.1 MEQ/L (5-15); BILIRUBIN,TOTAL 0.6 mg/dL (0.2-1.3); Calcium 8.1 mg/dL (8.4-10.2); Creatinine 1 1.78 mg/dL (0.66-1.25); EST GLOMERULAR FILTRATION RATE 38.1 ML/MIN; Potassium 4.2 mmol/L (3.5-5.1); Total Protein 6.4 g/dL (6.3-8.2)
--- NOTE | 2023-11-15 05:16 | PCM.NOTE ---
Date and Time: 11/15/23 0514 Subjective Assessment: is a 78 year old male with a pmhx of cataracts, macular degeneration, and bilateral shoulder replacements, most recently a left total replacement performed by Dr. Hendrickson three days ago. Patient reports urinary retention since his surgical procedure. Upon arrival to the ED patient was noted with AFIB RVR on his EKG. He is completely asymptomatic with this. His only complaint was low abdominal pain and pressure from his urinary retention which was relieved by placement of a rene catheter (975mls out with placement). He also has complaints of 6/10 left shoulder pain from recent surgery. Denies fever,cough, sob, cp, abdominal pain, VALENTINO, dizziness, N/V/D. Patient meeting sepsis criteria upon presentation to ED with HR up to 156, WBC of 36.8, fever, WILBERTO, and hypotension. DDimer elevated at 1.27 - CT negative for PE demonstrating new moderate left lower lobe subsegmental atelectasis with left hemidiaphragm elevation and new revision left shoulder arthroplasty with postoperative changes soft tissue swelling, and diffuse soft tissue emphysema. EKG initially showing A-fib, Non-specific ST Changes, Other (No acute ischemic changes on today's twelve-lead EKG. Repeat twelve-lead EKG on 11/14/2023 1620 reveals heart rate of 95 bpm. The computer readout shows an atrial flutter rhythm the computer says is ST elevation consider inferior injury. Pastry Artist Dr. Herrmann consulted he reviewed the two twelve-lead EKG and the 2 troponin levels that were drawn approximately 2-1/2 to 3 hours apart. He feels that there is no evidence of any acute ischemia and is comfortable keeping this patient here. Patient with leukocytosis and a significant portion of that 36,000 white count are monocytes consistent with mycoplasma infection. No infiltrate is on the chest CT scan. Physical exam is unremarkable. Lung sounds clear. Surgical incision CDI with no surrounding erythema, drainage, induration, or streaking. Patient started on Cardizem drip, bicarb drip, and Azithromycin. Admission for AFIB RVR/ sepsis with unknown source of infection, and WILBERTO. 11/15/23: Patient with no complaints this morning other than postoperative left shoulder pain which he rates 4/10. Discussed lab findings with noted improvement in acidosis and leukocytosis. Denies fever,cough, sob, cp, abdominal pain, VALENTINO, dizziness, N/V/D. - Review of Systems Constitutional: No Symptoms Eyes: No Symptoms Ears, Nose, & Throat: No Symptoms Respiratory: No Symptoms Cardiac: No Symptoms Abdominal/Gastrointestinal: No Symptoms Genitourinary Symptoms: No Symptoms Musculoskeletal: Joint Pain (left shoulder) Neurological: No Symptoms Psychological: No Symptoms Endocrine: No Symptoms Hematologic/Lymphatic: No Symptoms Immunological/Allergic: No Symptoms All Other Systems: Reviewed and Negative Objective Exam General Appearance: no apparent distress Neurologic Exam: alert, 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, cooperative Skin Exam: normal color Wound Assessment: Skin/Wound Assessment Wound/Incision Assessment Start: 11/14/23 18:08 Text: Status: Active Freq: Q6H Protocol: Document 11/15/23 01:53 AK (Rec: 11/15/23 01:54 AK [id number]) Wound/Incision Assessment Left Shoulder Wound Assessment Shift Assessment Wound Type Incision Wound Stage Non Pressure Wound Drainage Amount None General Appearance Well Approximated,Open to air Surrounding Tissue Morning Sun Comment skin glue Wound Photo Photo Taken No Eye Exam: PERRL Ears, Nose, Throat Exam: normal ENT inspection Neck Exam: normal inspection Respiratory Exam: normal breath sounds, lungs clear Cardiovascular Exam: regular rate/rhythm, normal heart sounds Gastrointestinal/Abdomen Exam: soft, normal bowel sounds Extremity Exam: other (Left arm in sling - surgical incision to left shoulder- CDI no surrounding erythema, drainage, edema) Back Exam: normal inspection Male Genitalia Exam: deferred Rectal Exam: deferred Objective Data Vital Signs: Vital Signs - 24 hr Temp Pulse Pulse Resp BP BP Pulse Ox 11/15/23 05:00 83 26 H 113/58 93 L 11/15/23 04:00 84 23 113/59 93 L 11/15/23 03:52 98.8 F 87 11/15/23 03:00 87 23 110/58 93 L 11/15/23 02:00 85 25 H 118/59 93 L 11/15/23 01:00 87 20 112/61 94 L 11/15/23 00:00 85 27 H 105/55 93 L 11/14/23 23:45 99.4 F 85 11/14/23 23:00 84 27 H 115/61 93 L 11/14/23 22:00 80 20 107/59 94 L 11/14/23 21:00 82 26 H 111/60 94 L 10/03/24 20:18 85 26 H 95 11/14/23 20:00 98.6 F 79 24 109/55 94 L 11/14/23 19:56 83 11/14/23 19:00 83 29 H 113/60 94 L 11/14/23 18:46 81 27 H 132/59 94 L 11/14/23 18:31 87 27 H 98/72 95 11/14/23 18:21 84 23 121/61 11/14/23 18:15 84 25 H 121/61 95 11/14/23 18:11 83 29 H 115/78 95 11/14/23 18:05 82 28 H 134/99 11/14/23 17:49 83 31 H 134/99 11/14/23 17:42 100.8 F 104 H 24 134/99 93 L 11/14/23 17:34 101 H 24 134/99 11/14/23 17:33 100.8 F 104 H 23 134/99 94 L 11/14/23 17:00 103 H 26 H 111/57 93 L 11/14/23 16:50 98 H 25 H 105/55 93 L 11/14/23 16:40 93 H 26 H 92/58 93 L 11/14/23 16:30 96 H 24 94/62 93 L 11/14/23 16:20 115 H 33 H 97/60 94 L 11/14/23 16:10 101 H 33 H 98/61 92 L 11/14/23 16:09 113 H 28 H 103/63 94 L 11/14/23 16:02 96 H 30 H 80/62 93 L 11/14/23 16:00 111 H 29 H 89/58 93 L 11/14/23 15:50 98 H 26 H 113/54 93 L 11/14/23 15:40 106 H 27 H 113/73 93 L 11/14/23 15:20 114 H 29 H 115/71 93 L 11/14/23 15:11 117 H 34 H 125/89 93 L 11/14/23 15:01 116 H 30 H 117/81 11/14/23 15:00 125 H 26 H 117/81 93 L 11/14/23 14:50 117 H 26 H 115/74 92 L 11/14/23 14:40 117 H 32 H 107/63 93 L 11/14/23 14:30 119 H 30 H 103/65 94 L 11/14/23 14:20 115 H 30 H 110/57 93 L 11/14/23 14:10 117 H 30 H 103/66 92 L 11/14/23 14:00 107 H 30 H 101/70 91 L 11/14/23 13:50 137 H 32 H 100/71 93 L 11/14/23 13:48 131 H 31 H 110/73 93 L 11/14/23 13:31 133 H 26 H 105/74 11/14/23 13:20 144 H 34 H 105/74 93 L 11/14/23 13:10 129 H 32 H 102/74 93 L 11/14/23 13:00 129 H 22 96/63 93 L 11/14/23 12:50 132 H 24 120/70 94 L 11/14/23 12:40 128 H 34 H 111/73 93 L 11/14/23 12:31 157 H 34 H 120/75 11/14/23 12:30 124 H 34 H 120/75 92 L 11/14/23 12:20 157 H 36 H 109/73 93 L 11/14/23 12:10 124 H 37 H 87/65 93 L 11/14/23 12:05 95 11/14/23 12:00 121 H 24 83/66 94 L 11/14/23 11:50 156 H 156 H 22 122/95 95 11/14/23 11:47 109 H 22 122/95 94 L Pain Assessment - Last Documented Pain Intensity 1 Pain Scale Used 0-10 Pain Scale Intake and Output: Intake & Output 11/12/23 11/13/23 11/14/23 11/15/23 11:59 11:59 11:59 11:59 Intake Total 340 Output Total 625 Balance -285 Weight 81.6 kg 82.1 kg Lab Results: Lab Results-Last 24 Hours 11/14/23 11/14/23 11/14/23 Range/Units 12:15 12:15 12:15 WBC 36.8 H* (4.23-9.07) x10^3/uL RBC 3.56 L (4.63-6.08) x10^6/uL Hgb 9.8 L (13.7-17.5) g/dL Hct 30.5 L (40.1-51.0) % MCV 85.7 (79.0-92.2) fL MCH 27.5 (25.7-32.2) pg MCHC 32.1 L (32.3-36.5) g/dL RDW 15.4 H (11.6-14.4) % Plt Count 176 (163-337) x10^3/uL MPV 11.1 (9.4-12.4) fL Segmented Neutrophils 37 (34.0-67.9) % Band Neutrophils 1 (0.0-2.0) % Lymphocytes (Manual) 6 L (21.8-53.1) % Monocytes (Manual) 55 H (5.3-12.2) % Atypical Lymphocytes 1 % Platelet Estimate NORMAL (NORMAL) RBC Morphology ABNORMAL Macrocytosis 1+ Smear Path Review SEE SEPARATE REPORT PT 12.5 (9.4-12.5) SECONDS INR 1.16 (0.8-3.0) D-Dimer 1.27 H* (0.0-0.50) mg/L Puncture Site pCO2 (35-45) mmHg pO2 (75-100) mmHg Base Excess (-2.0-2.0) O2 Saturation (94-100) g/dF ABG pH (7.35-7.45) ABG HCO3 (22-28) ABG O2 Sat (Measured) (95-100) % Bertram Test A-a Gradient a/A Ratio Hemoglobin Carboxyhemoglobin (0.0-6.9) % THgb Methemoglobin (1.4-1.5) % Temperature C POC O2 Flow Rate % Sodium 135 (135-145) mmol/L Potassium 4.8 (3.5-5.1) mmol/L Chloride 111 H (98-107) mmol/L Carbon Dioxide 11 L* (22-30) mmol/L Anion Gap 17.0 H (5-15) MEQ/L BUN 31 H (9-20) mg/dL Creatinine 1.63 H (0.66-1.25) mg/dL Estimated GFR 42.3 ML/MIN Glucose 163 H (74-106) mg/dL Lactic Acid (0.4-2.0) Calcium 8.6 (8.4-10.2) mg/dL Magnesium 1.9 (1.6-2.3) mg/dL Total Bilirubin 0.80 (0.2-1.3) mg/dL AST 25 (17-59) U/L ALT 18 (0-50) U/L Alkaline Phosphatase 60 (38-126) U/L Troponin I 0.030 (0.000-0.033) ng/mL NT-Pro-B Natriuret Pep 1810 (<300) pg/mL Serum Total Protein 7.3 (6.3-8.2) g/dL Albumin 3.9 (3.5-5.0) g/dL Procalcitonin (0.030-0.080) ng/mL TSH 3rd Generation (0.470-4.680) mIU/L 11/14/23 11/14/23 11/14/23 Range/Units 15:12 15:18 16:28 WBC (4.23-9.07) x10^3/uL RBC (4.63-6.08) x10^6/uL Hgb (13.7-17.5) g/dL Hct (40.1-51.0) % MCV (79.0-92.2) fL MCH (25.7-32.2) pg MCHC (32.3-36.5) g/dL RDW (11.6-14.4) % Plt Count (163-337) x10^3/uL MPV (9.4-12.4) fL Segmented Neutrophils (34.0-67.9) % Band Neutrophils (0.0-2.0) % Lymphocytes (Manual) (21.8-53.1) % Monocytes (Manual) (5.3-12.2) % Atypical Lymphocytes % Platelet Estimate (NORMAL) RBC Morphology Macrocytosis Smear Path Review PT (9.4-12.5) SECONDS INR (0.8-3.0) D-Dimer (0.0-0.50) mg/L Puncture Site pCO2 (35-45) mmHg pO2 (75-100) mmHg Base Excess (-2.0-2.0) O2 Saturation (94-100) g/dF ABG pH (7.35-7.45) ABG HCO3 (22-28) ABG O2 Sat (Measured) (95-100) % Bertram Test A-a Gradient a/A Ratio Hemoglobin Carboxyhemoglobin (0.0-6.9) % THgb Methemoglobin (1.4-1.5) % Temperature C POC O2 Flow Rate % Sodium (135-145) mmol/L Potassium (3.5-5.1) mmol/L Chloride (98-107) mmol/L Carbon Dioxide (22-30) mmol/L Anion Gap (5-15) MEQ/L BUN (9-20) mg/dL Creatinine (0.66-1.25) mg/dL Estimated GFR ML/MIN Glucose (74-106) mg/dL Lactic Acid 1.0 (0.4-2.0) Calcium (8.4-10.2) mg/dL Magnesium (1.6-2.3) mg/dL Total Bilirubin (0.2-1.3) mg/dL AST (17-59) U/L ALT (0-50) U/L Alkaline Phosphatase (38-126) U/L Troponin I 0.039 H* (0.000-0.033) ng/mL NT-Pro-B Natriuret Pep (<300) pg/mL Serum Total Protein (6.3-8.2) g/dL Albumin (3.5-5.0) g/dL Procalcitonin 0.460 H (0.030-0.080) ng/mL TSH 3rd Generation (0.470-4.680) mIU/L 11/14/23 11/14/23 11/14/23 Range/Units 20:10 20:10 20:10 WBC (4.23-9.07) x10^3/uL RBC (4.63-6.08) x10^6/uL Hgb (13.7-17.5) g/dL Hct (40.1-51.0) % MCV (79.0-92.2) fL MCH (25.7-32.2) pg MCHC (32.3-36.5) g/dL RDW (11.6-14.4) % Plt Count (163-337) x10^3/uL MPV (9.4-12.4) fL Segmented Neutrophils (34.0-67.9) % Band Neutrophils (0.0-2.0) % Lymphocytes (Manual) (21.8-53.1) % Monocytes (Manual) (5.3-12.2) % Atypical Lymphocytes % Platelet Estimate (NORMAL) RBC Morphology Macrocytosis Smear Path Review PT (9.4-12.5) SECONDS INR (0.8-3.0) D-Dimer (0.0-0.50) mg/L Puncture Site pCO2 (35-45) mmHg pO2 (75-100) mmHg Base Excess (-2.0-2.0) O2 Saturation (94-100) g/dF ABG pH (7.35-7.45) ABG HCO3 (22-28) ABG O2 Sat (Measured) (95-100) % Bertram Test A-a Gradient a/A Ratio Hemoglobin Carboxyhemoglobin (0.0-6.9) % THgb Methemoglobin (1.4-1.5) % Temperature C POC O2 Flow Rate % Sodium 136 (135-145) mmol/L Potassium 4.5 (3.5-5.1) mmol/L Chloride 107 (98-107) mmol/L Carbon Dioxide 13 L* (22-30) mmol/L Anion Gap 19.4 H (5-15) MEQ/L BUN 28 H (9-20) mg/dL Creatinine 1.72 H (0.66-1.25) mg/dL Estimated GFR 39.7 ML/MIN Glucose 243 H (74-106) mg/dL Lactic Acid (0.4-2.0) Calcium 8.0 L (8.4-10.2) mg/dL Magnesium (1.6-2.3) mg/dL Total Bilirubin 0.70 (0.2-1.3) mg/dL AST 22 (17-59) U/L ALT 22 (0-50) U/L Alkaline Phosphatase 56 (38-126) U/L Troponin I 0.032 (0.000-0.033) ng/mL NT-Pro-B Natriuret Pep (<300) pg/mL Serum Total Protein 6.1 L (6.3-8.2) g/dL Albumin 3.2 L (3.5-5.0) g/dL Procalcitonin (0.030-0.080) ng/mL TSH 3rd Generation 0.737 (0.470-4.680) mIU/L 11/14/23 11/15/23 Range/Units 21:25 04:25 WBC 18.8 H (4.23-9.07) x10^3/uL RBC 3.16 L (4.63-6.08) x10^6/uL Hgb 8.5 L (13.7-17.5) g/dL Hct 26.4 L (40.1-51.0) % MCV 83.5 (79.0-92.2) fL MCH 26.9 (25.7-32.2) pg MCHC 32.2 L (32.3-36.5) g/dL RDW 15.2 H (11.6-14.4) % Plt Count 137 L (163-337) x10^3/uL MPV 10.9 (9.4-12.4) fL Segmented Neutrophils (34.0-67.9) % Band Neutrophils (0.0-2.0) % Lymphocytes (Manual) (21.8-53.1) % Monocytes (Manual) (5.3-12.2) % Atypical Lymphocytes % Platelet Estimate (NORMAL) RBC Morphology Macrocytosis Smear Path Review PT (9.4-12.5) SECONDS INR (0.8-3.0) D-Dimer (0.0-0.50) mg/L Puncture Site RIGHT BRACHIAL pCO2 28 L (35-45) mmHg pO2 65 L (75-100) mmHg Base Excess -4.8 L (-2.0-2.0) O2 Saturation 94.4 (94-100) g/dF ABG pH 7.43 (7.35-7.45) ABG HCO3 18.6 L (22-28) ABG O2 Sat (Measured) 96.6 (95-100) % Bertram Test NOT APPLICABLE A-a Gradient 50 a/A Ratio 0.57 Hemoglobin 9.5 Carboxyhemoglobin 1.6 (0.0-6.9) % THgb Methemoglobin 0.7 L (1.4-1.5) % Temperature 37.0 C POC O2 Flow Rate 21 % Sodium (135-145) mmol/L Potassium 4.3 (3.5-5.1) mmol/L Chloride (98-107) mmol/L Carbon Dioxide (22-30) mmol/L Anion Gap (5-15) MEQ/L BUN (9-20) mg/dL Creatinine (0.66-1.25) mg/dL Estimated GFR ML/MIN Glucose (74-106) mg/dL Lactic Acid (0.4-2.0) Calcium (8.4-10.2) mg/dL Magnesium (1.6-2.3) mg/dL Total Bilirubin (0.2-1.3) mg/dL AST (17-59) U/L ALT (0-50) U/L Alkaline Phosphatase (38-126) U/L Troponin I (0.000-0.033) ng/mL NT-Pro-B Natriuret Pep (<300) pg/mL Serum Total Protein (6.3-8.2) g/dL Albumin (3.5-5.0) g/dL Procalcitonin (0.030-0.080) ng/mL TSH 3rd Generation (0.470-4.680) mIU/L Radiology Exams: Radiology Procedures Category Date Time Status CHEST 2 VIEWS (PA AND LAT) Routine Exams 11/15/23 08:00 Ordered CHEST WITH CONTRAST [CT] Stat Exams 11/14/23 12:49 Completed ECHO W/2D AND DOPPLER [US] Routine Exams 11/15/23 19:10 Ordered Assessment/Plan (1) Sepsis Current Visit: Yes Status: Acute Assessment & Plan: -Unknown source of infection - leukocytosis and a significant portion of that 36,000 white count are monocytes consistent with mycoplasma infection -Meets criteria with leukocytosis, HR, fever, WILBERTO, hypotension -Blood cultures x 1 in ED - draw 2nd set -mycoplasma culture -discussed with lab- will perform pcr and also obtain sputum culture -procal -LA wnl -supplemental oxygen with spo2 goal > 92% - currently on RA -baseline -ABG if significant hypoxia/lethargy -Azithromycin -Target map >65 -chest ct negative for PE -demonstrates . New moderate left lower lobe subsegmental atelectasis with left hemidiaphragm elevation -lovenox 11/14: -WBC improving 18.8<36.8 -Afebrle overnight -blood/sputum cultures pending -mycoplasma pcr pending -repeat cxr showing new mild left lung base infiltrate/atelectasis/effusion -IS ##Metabolic Acidosis --unknown etiology -bicarb drip with titration -CMP q4 -hydroxybutyric acid level pending 11/14: -Improving - drip Dcd -oral bicarb -Monitor closely (2) Atrial fibrillation with RVR Current Visit: Yes Status: Acute Assessment & Plan: -Cardizem drip started in ED -Repeat EKG NS - drip discontinued -metoprolol 12.5 bid -TSH -optimize electrolytes -consider cardiac consult -monitor BP closely -PAIGE-VASC score of 2 for risk factor of age >75 10: -HR in NS- controlled -Metoprolol 12.5mg bid -TSH WNL Code(s): I48.91 - UNSPECIFIED ATRIAL FIBRILLATION (3) Leukocytosis Current Visit: Yes Status: Acute Assessment & Plan: -see sepsis for plan Code(s): D72.829 - ELEVATED WHITE BLOOD CELL COUNT, UNSPECIFIED (4) Acute on chronic kidney failure Current Visit: Yes Status: Acute Assessment & Plan: -Baseline creat around 1.4-1.5 - 1.63 on presentation -may be secondary to urinary retention -monitor renal/lytes closely -Bicarb drip at 100ml/hr -avoid nephrotoxic medications 11/14: -creat increased today at 1.78- will continue IVF may be secondary to contrast exam yesterday -Renal us - with Nonvisualization left kidney due to recent left shoulder surgery with brace/support in situ. Stable small right renal cyst. -oral bicarb Code(s): N17.9 - ACUTE KIDNEY FAILURE, UNSPECIFIED; N18.9 - CHRONIC KIDNEY DISEASE, UNSPECIFIED (5) Status post replacement of left shoulder joint Current Visit: Yes Status: Acute Assessment & Plan: -Surgery with Dr. Hendrickson x 3 days ago -Surgical site CDI - no erythema, drainage, edema, streaking -CT scan demonstrates interval revision left shoulder arthroplasty with new bipolar prosthesis, soft tissue swelling, and diffuse soft tissue emphysema -continue home pain meds Code(s): Z96.612 - PRESENCE OF LEFT ARTIFICIAL SHOULDER JOINT (6) Urinary retention Current Visit: Yes Status: Acute Assessment & Plan: -Post surgery -F/C placed with 975ml residual out on insertion -UA with no signs of infection Code(s): R33.9 - RETENTION OF URINE, UNSPECIFIED (2) Atrial fibrillation with RVR Current Visit: Yes Status: Acute Code(s): I48.91 - UNSPECIFIED ATRIAL FIBRILLATION (3) Leukocytosis Current Visit: Yes Status: Acute Code(s): D72.829 - ELEVATED WHITE BLOOD CELL COUNT, UNSPECIFIED (4) Acute on chronic kidney failure Current Visit: Yes Status: Acute Code(s): N17.9 - ACUTE KIDNEY FAILURE, UNSPECIFIED; N18.9 - CHRONIC KIDNEY DISEASE, UNSPECIFIED (5) Status post replacement of left shoulder joint Current Visit: Yes Status: Acute Code(s): Z96.612 - PRESENCE OF LEFT ARTIFICIAL SHOULDER JOINT (6) Urinary retention Current Visit: Yes Status: Acute Code(s): R33.9 - RETENTION OF URINE, UNSPECIFIED
[2023-11-15 07:39] LABS: Lymphocytes 6 % (21.8-53.1); Monocyte 58 % (5.3-12.2); Neutrophils 36 % (34.0-67.9); Total Cells Counted 100
[2023-11-15 07:40] LABS: Hypochromia 1+; Platelet Estimate DECREASED (NORMAL)
--- NOTE | 2023-11-15 09:41 | XRAY ---
Indication: Leukocytosis. Comparison: January 09, 2020 Portable chest demonstrates new mild left lung base infiltrate/atelectasis/effusion. Remaining heart and right lung unremarkable. Bony thorax intact again with osteopenia, degenerative changes, and bilateral shoulder arthroplasty. New cervical fusion hardware.
[2023-11-15] MEDS ORDERED: ECOTRIN 81 MG PO SCH (10:00)
[2023-11-15] MEDS: Zithromax 500 MG/ 250 ML NaCl Premix 500 MG/250 ML IVPB IV SCH (10:02)
[2023-11-15] MEDS: ENOXAPARIN SODIUM SQ SCH (10:03)
--- NOTE | 2023-11-15 11:32 | XRAY ---
Indication: Urine retention. Status post left shoulder surgery. Two-dimensional renal sonogram performed. Comparison: October 23, 2022 Right kidney normal in reniform shape with normal color perfusion measuring 10.2 x 4.6 x 3.6 cm with stable 1.5 cm lower pole cyst. No new focal sulci cystic renal mass or hydronephrosis. Attempted sonogram left kidney unsuccessful due to left shoulder brace/support in situ. Near empty urinary bladder demonstrates new Maldonado catheter with balloon tip in bladder lumen. Impression: 1. Nonvisualization left kidney due to recent left shoulder surgery with brace/support in situ. 2. Stable small right renal cyst. 3. Near empty urinary bladder with Maldonado balloon catheter in situ.
[2023-11-15 12:14] LABS: ALBUMIN 3.2 g/dL (3.5-5.0); ANION GAP 17.8 MEQ/L (5-15); BILIRUBIN,TOTAL 0.7 mg/dL (0.2-1.3); Calcium 8.1 mg/dL (8.4-10.2); Creatinine 1 1.68 mg/dL (0.66-1.25); EST GLOMERULAR FILTRATION RATE 40.8 ML/MIN; Potassium 4.3 mmol/L (3.5-5.1); Total Protein 6.5 g/dL (6.3-8.2)
[2023-11-15] MEDS: SODIUM BICARBONATE PO SCH (12:35)
[2023-11-15] MEDS: Lactated Ringers 1,000 ML IV SCH ×2 (12:36→12:37)
[2023-11-15] MEDS: Oxy-IR 5 MG PO PRN (13:00)
[2023-11-15 16:25] LABS: ALBUMIN 3.2 g/dL (3.5-5.0); ANION GAP 17.3 MEQ/L (5-15); BILIRUBIN,TOTAL 0.5 mg/dL (0.2-1.3); Calcium 7.9 mg/dL (8.4-10.2); Creatinine 1 1.84 mg/dL (0.66-1.25); EST GLOMERULAR FILTRATION RATE 36.6 ML/MIN; Potassium 4.7 mmol/L (3.5-5.1); Total Protein 6.4 g/dL (6.3-8.2)
[2023-11-15] MEDS ORDERED: Dextrose 5%/Water IV Soln. 1000 ML 1,000 ML IV ONE (18:46)
[2023-11-15] MEDS ORDERED: SODIUM BICARBONATE 50 MEQ/50 ML ABBOJECT IV ONE (18:46)
[2023-11-15] MEDS: Sodium Bicarbonate 50 MEQ/50 ML VIAL*** 150 MEQ in Dextrose 5%/Water IV Soln. 1000 ML 1... IV SCH (19:03)
[2023-11-15 20:13] LABS: ALBUMIN 3.2 g/dL (3.5-5.0); ANION GAP 16.9 MEQ/L (5-15); BILIRUBIN,TOTAL 0.6 mg/dL (0.2-1.3); Calcium 7.9 mg/dL (8.4-10.2); Creatinine 1 1.74 mg/dL (0.66-1.25); EST GLOMERULAR FILTRATION RATE 39.1 ML/MIN; Potassium 4.5 mmol/L (3.5-5.1); Total Protein 6.4 g/dL (6.3-8.2)
[2023-11-15] MEDS: Lopressor 25MG Tab PO ONE (23:17)
[2023-11-16] MEDS: Cardizem IV 50 MG/10 ML IV ONE (02:10)
[2023-11-16] MEDS: CARDIZEM DRIP 100 MG/100 ML D5W 100 ML IV PRN (02:13)
--- NOTE | 2023-11-16 05:36 | PCM.NOTE ---
Date and Time: 11/16/23 0529 Subjective Assessment: is a 78 year old male with a pmhx of cataracts, macular degeneration, and bilateral shoulder replacements, most recently a left total replacement performed by Dr. Hendrickson three days ago. Patient reports urinary retention since his surgical procedure. Upon arrival to the ED patient was noted with AFIB RVR on his EKG. He is completely asymptomatic with this. His only complaint was low abdominal pain and pressure from his urinary retention which was relieved by placement of a rene catheter (975mls out with placement). He also has complaints of 6/10 left shoulder pain from recent surgery. Denies fever,cough, sob, cp, abdominal pain, VALENTINO, dizziness, N/V/D. Patient meeting sepsis criteria upon presentation to ED with HR up to 156, WBC of 36.8, fever, WILBERTO, and hypotension. DDimer elevated at 1.27 - CT negative for PE demonstrating new moderate left lower lobe subsegmental atelectasis with left hemidiaphragm elevation and new revision left shoulder arthroplasty with postoperative changes soft tissue swelling, and diffuse soft tissue emphysema. EKG initially showing A-fib, Non-specific ST Changes, Other (No acute ischemic changes on today's twelve-lead EKG. Repeat twelve-lead EKG on 11/14/2023 1620 reveals heart rate of 95 bpm. The computer readout shows an atrial flutter rhythm the computer says is ST elevation consider inferior injury. Solution Lead Dr. Herrmann consulted he reviewed the two twelve-lead EKG and the 2 troponin levels that were drawn approximately 2-1/2 to 3 hours apart. He feels that there is no evidence of any acute ischemia and is comfortable keeping this patient here. Patient with leukocytosis and a significant portion of that 36,000 white count are monocytes consistent with mycoplasma infection. No infiltrate is on the chest CT scan. Physical exam is unremarkable. Lung sounds clear. Surgical incision CDI with no surrounding erythema, drainage, induration, or streaking. Patient started on Cardizem drip, bicarb drip, and Azithromycin. Admission for AFIB RVR/ sepsis with unknown source of infection, and WILBERTO. 11/15/23: Patient with no complaints this morning other than postoperative left shoulder pain which he rates 4/10. Discussed lab findings with noted improvement in acidosis and leukocytosis. Denies fever,cough, sob, cp, abdominal pain, VALENTINO, dizziness, N/V/D. 11/16/23: Overnight events reported by RN of HR running 120-130's with sporadic 140-150's that are happening more often than previously and rhythm of a.flutter. Pt asymptomatic. Cardizem bolus of 15mg IV stat and then start cardizem drip @ 5mg/hr with a target HR of 100 ordered. Cardiology consulted with recs to increase metoprolol to 25mg bid. Patient's only complaint again today is his left shoulder pain which he is rating 3/10 on numerical pain scale this morning. CXR yesterday showing infiltrates. Acidosis improving on bicarb drip. WBC count improving -now at 13.9<18.8<36.8. Kidney function also improving. Plan to continue IV abx. Will dc rene today with void trial. Denies fever,cough, sob, cp, abdominal pain, VALENTINO, dizziness, N/V/D. - Review of Systems Constitutional: No Symptoms Eyes: No Symptoms Ears, Nose, & Throat: No Symptoms Respiratory: No Symptoms Cardiac: No Symptoms Abdominal/Gastrointestinal: No Symptoms Genitourinary Symptoms: No Symptoms Musculoskeletal: Joint Pain (left shoulder) Skin: No Symptoms Neurological: No Symptoms Psychological: No Symptoms Endocrine: No Symptoms Hematologic/Lymphatic: No Symptoms Objective Exam General Appearance: no apparent distress Neurologic Exam: alert, 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, cooperative Skin Exam: normal color Wound Assessment: Skin/Wound Assessment Wound/Incision Assessment Start: 11/14/23 18:08 Text: Status: Active Freq: Q6H Protocol: Document 11/16/23 02:00 KD (Rec: 11/16/23 04:07 KD [id number]) Wound/Incision Assessment Left Shoulder Wound Assessment Shift Assessment Wound Type Incision Wound Stage Non Pressure Wound Drainage Amount None General Appearance Well Approximated,Open to air, Clean/Dry Surrounding Tissue Nocona Comment incision covered with skin glue-remains true Wound Photo Photo Taken No Eye Exam: PERRL Ears, Nose, Throat Exam: normal ENT inspection Neck Exam: normal inspection Respiratory Exam: normal breath sounds, lungs clear Cardiovascular Exam: tachycardia, irregular Gastrointestinal/Abdomen Exam: soft, normal bowel sounds Extremity Exam: other (LUE with surgical incision at the shoulder - with surgic al dressing CDI - no surrounding edema/erythema/streaking) Back Exam: normal inspection Male Genitalia Exam: deferred Rectal Exam: deferred Objective Data Vital Signs: Vital Signs - 24 hr Temp Pulse Resp BP BP Pulse Ox 11/16/23 05:00 91 H 17 114/70 95 11/16/23 04:13 93 H 23 103/72 11/16/23 04:01 97.6 F 93 H 23 103/72 95 11/16/23 04:00 93 H 11/16/23 03:13 89 22 125/69 11/16/23 03:01 89 22 125/69 94 L 11/16/23 02:13 101 H 27 H 117/86 11/16/23 02:02 87 26 H 117/86 93 L 11/16/23 01:01 98.1 F 155 H 24 126/74 95 11/16/23 00:01 155 H 11/16/23 00:00 116 H 24 118/96 95 11/15/23 23:01 122 H 26 H 135/89 94 L 11/15/23 22:00 109 H 26 H 128/66 94 L 11/15/23 21:00 78 34 H 131/76 94 L 11/15/23 20:00 98.8 F 86 24 140/73 95 11/15/23 19:00 83 23 138/71 94 L 11/15/23 18:00 84 25 H 151/67 93 L 11/15/23 17:31 83 28 H 152/61 93 L 11/15/23 17:30 93 H 20 96 11/15/23 17:20 87 23 95 11/15/23 17:10 85 21 95 11/15/23 17:05 89 22 11/15/23 16:43 133/76 11/15/23 16:40 133/76 11/15/23 16:09 98.9 F 90 21 152/74 95 11/15/23 16:08 90 24 95 11/15/23 16:05 82 11/15/23 16:02 99.0 F 89 36 H 95 11/15/23 15:00 82 21 116/78 94 L 11/15/23 14:00 90 27 H 123/61 94 L 11/15/23 13:00 98.3 F 83 33 H 128/73 97 11/15/23 12:30 84 11/15/23 12:02 91 H 26 H 119/55 95 11/15/23 12:00 98.3 F 11/15/23 11:00 85 33 H 123/68 93 L 11/15/23 10:00 87 31 H 137/67 94 L 11/15/23 09:00 92 H 31 H 134/61 93 L 11/15/23 08:50 91 H 11/15/23 08:00 83 27 H 126/60 94 L 11/15/23 07:38 98.4 F 11/15/23 07:00 86 23 119/58 93 L 11/15/23 06:00 85 24 115/55 93 L Pain Assessment - Last Documented Pain Intensity 4 Pain Scale Used 0-10 Pain Scale Intake and Output: Intake & Output 11/13/23 11/14/23 11/15/23 11/16/23 11:59 11:59 11:59 11:59 Intake Total 2421 1587 Output Total 1625 2000 Balance 796 -413 Weight 81.6 kg 82.1 kg Lab Results: Lab Results-Last 24 Hours 11/15/23 11/15/23 11/15/23 Range/Units 04:25 04:25 04:30 Segmented Neutrophils 36 (34.0-67.9) % Lymphocytes (Manual) 6 L (21.8-53.1) % Monocytes (Manual) 58 H (5.3-12.2) % Hypochromia 1+ Platelet Estimate DECREASED (NORMAL) RBC Morphology ABNORMAL Sodium 138 (135-145) mmol/L Potassium 4.2 (3.5-5.1) mmol/L Chloride 108 H (98-107) mmol/L Carbon Dioxide 17 L (22-30) mmol/L Anion Gap 17.1 H (5-15) MEQ/L BUN 30 H (9-20) mg/dL Creatinine 1.78 H (0.66-1.25) mg/dL Estimated GFR 38.1 ML/MIN Glucose 102 (74-106) mg/dL Hemoglobin A1c 5.47 (4.5-6.0) % Calcium 8.1 L (8.4-10.2) mg/dL Total Bilirubin 0.60 (0.2-1.3) mg/dL AST 19 (17-59) U/L ALT 15 (0-50) U/L Alkaline Phosphatase 56 (38-126) U/L NT-Pro-B Natriuret Pep 2900 (<300) pg/mL Serum Total Protein 6.4 (6.3-8.2) g/dL Albumin 3.2 L (3.5-5.0) g/dL Salicylates (2-20) mg/dL 11/15/23 11/15/23 11/15/23 Range/Units 11:54 16:03 16:03 Segmented Neutrophils (34.0-67.9) % Lymphocytes (Manual) (21.8-53.1) % Monocytes (Manual) (5.3-12.2) % Hypochromia Platelet Estimate (NORMAL) RBC Morphology Sodium 139 138 (135-145) mmol/L Potassium 4.3 4.7 (3.5-5.1) mmol/L Chloride 108 H 108 H (98-107) mmol/L Carbon Dioxide 17 L 17 L (22-30) mmol/L Anion Gap 17.8 H 17.3 H (5-15) MEQ/L BUN 30 H 30 H (9-20) mg/dL Creatinine 1.68 H 1.84 H (0.66-1.25) mg/dL Estimated GFR 40.8 36.6 ML/MIN Glucose 132 H 175 H (74-106) mg/dL Hemoglobin A1c (4.5-6.0) % Calcium 8.1 L 7.9 L (8.4-10.2) mg/dL Total Bilirubin 0.70 0.50 (0.2-1.3) mg/dL AST 23 27 (17-59) U/L ALT 16 20 (0-50) U/L Alkaline Phosphatase 60 65 (38-126) U/L NT-Pro-B Natriuret Pep (<300) pg/mL Serum Total Protein 6.5 6.4 (6.3-8.2) g/dL Albumin 3.2 L 3.2 L (3.5-5.0) g/dL Salicylates < 1.0 L (2-20) mg/dL 11/15/23 Range/Units 19:57 Segmented Neutrophils (34.0-67.9) % Lymphocytes (Manual) (21.8-53.1) % Monocytes (Manual) (5.3-12.2) % Hypochromia Platelet Estimate (NORMAL) RBC Morphology Sodium 136 (135-145) mmol/L Potassium 4.5 (3.5-5.1) mmol/L Chloride 108 H (98-107) mmol/L Carbon Dioxide 16 L* (22-30) mmol/L Anion Gap 16.9 H (5-15) MEQ/L BUN 28 H (9-20) mg/dL Creatinine 1.74 H (0.66-1.25) mg/dL Estimated GFR 39.1 ML/MIN Glucose 159 H (74-106) mg/dL Hemoglobin A1c (4.5-6.0) % Calcium 7.9 L (8.4-10.2) mg/dL Total Bilirubin 0.60 (0.2-1.3) mg/dL AST 27 (17-59) U/L ALT 21 (0-50) U/L Alkaline Phosphatase 70 (38-126) U/L NT-Pro-B Natriuret Pep (<300) pg/mL Serum Total Protein 6.4 (6.3-8.2) g/dL Albumin 3.2 L (3.5-5.0) g/dL Salicylates (2-20) mg/dL Radiology Exams: Radiology Procedures Category Date Time Status CHEST 1 VIEW (PORTABLE) Routine Exams 11/15/23 08:00 Completed CHEST WITH CONTRAST [CT] Stat Exams 11/14/23 12:49 Completed ECHO W/2D AND DOPPLER [US] Routine Exams 11/15/23 19:10 Taken Renal Ultrasound [KIDNEY] [US] Stat Exams 11/15/23 09:40 Completed Assessment/Plan (1) Sepsis Current Visit: Yes Status: Acute Assessment & Plan: -Unknown source of infection - leukocytosis and a significant portion of that 36,000 white count are monocytes consistent with mycoplasma infection -Meets criteria with leukocytosis, HR, fever, WILBERTO, hypotension -Blood cultures x 1 in ED - draw 2nd set -mycoplasma culture -discussed with lab- will perform pcr and also obtain sputum culture -procal -LA wnl -supplemental oxygen with spo2 goal > 92% - currently on RA -baseline -ABG if significant hypoxia/lethargy -Azithromycin -Target map >65 -chest ct negative for PE -demonstrates . New moderate left lower lobe coronado bsegmental atelectasis with left hemidiaphragm elevation -lovenox 11/14: -WBC improving 18.8<36.8 -Afebrle overnight -blood/sputum cultures pending -mycoplasma pcr pending -repeat cxr showing new mild left lung base infiltrate/atelectasis/effusion -IS 11/15: -CXR with new infiltrate - continue azithromycin -Afebrile overnight -cultures pending ##Metabolic Acidosis --unknown etiology -bicarb drip with titration -CMP q4 -hydroxybutyric acid level pending 11/14: -Improving - drip Dcd -oral bicarb -Monitor closely 11/15: -bicarb drip resumed - improving -BMP q4h (2) Atrial fibrillation with RVR Current Visit: Yes Status: Acute Assessment & Plan: -Cardizem drip started in ED -Repeat EKG NS - drip discontinued -metoprolol 12.5 bid -TSH -optimize electrolytes -consider cardiac consult -monitor BP closely -PAIGE-VASC score of 2 for risk factor of age >75 11/14: -HR in NS- controlled -Metoprolol 12.5mg bid -TSH WNL 11/15: -Pt's HR overnight in the 120's-130's with rhythm Aflutter - metoprolol dose 12.5 x 1 ordered by overnight doc- with no resolve then Cardizem bolus of 15mg IV stat and then start cardizem drip @ 5mg/hr with a target HR of 100. tele cardiology consulted metoprolol increased to 25mg bid Code(s): I48.91 - UNSPECIFIED ATRIAL FIBRILLATION (3) Leukocytosis Current Visit: Yes Status: Acute Assessment & Plan: -see sepsis for plan Code(s): D72.829 - ELEVATED WHITE BLOOD CELL COUNT, UNSPECIFIED (4) Acute on chronic kidney failure Current Visit: Yes Status: Acute Assessment & Plan: -Baseline creat around 1.4-1.5 - 1.63 on presentation -may be secondary to urinary retention -monitor renal/lytes closely -Bicarb drip at 100ml/hr -avoid nephrotoxic medications 11/14: -creat increased today at 1.78- will continue IVF may be secondary to contrast exam yesterday -Renal us - with Nonvisualization left kidney due to recent left shoulder surgery with brace/support in situ. Stable small right renal cyst. 11/15: -creat improving now at 1.53<1.78 Code(s): N17.9 - ACUTE KIDNEY FAILURE, UNSPECIFIED; N18.9 - CHRONIC KIDNEY DISEASE, UNSPECIFIED (5) Status post replacement of left shoulder joint Current Visit: Yes Status: Acute Assessment & Plan: -Surgery with Dr. Hendrickson x 3 days ago -Surgical site CDI - no erythema, drainage, edema, streaking -CT scan demonstrates interval revision left shoulder arthroplasty with new bipolar prosthesis, soft tissue swelling, and diffuse soft tissue emphysema -continue home pain meds Code(s): Z96.612 - PRESENCE OF LEFT ARTIFICIAL SHOULDER JOINT (6) Urinary retention Current Visit: Yes Status: Acute Assessment & Plan: -Post surgery -F/C placed with 975ml residual out on insertion -UA with no signs of infection 11/15: -Will attempt to d/c FC today with trial void Code(s): R33.9 - RETENTION OF URINE, UNSPECIFIED (2) Atrial fibrillation with RVR Current Visit: Yes Status: Acute Code(s): I48.91 - UNSPECIFIED ATRIAL FIBRILLATION (3) Leukocytosis Current Visit: Yes Status: Acute Code(s): D72.829 - ELEVATED WHITE BLOOD CELL COUNT, UNSPECIFIED (4) Acute on chronic kidney failure Current Visit: Yes Status: Acute Code(s): N17.9 - ACUTE KIDNEY FAILURE, UNSPECIFIED; N18.9 - CHRONIC KIDNEY DISEASE, UNSPECIFIED (5) Status post replacement of left shoulder joint Current Visit: Yes Status: Acute Code(s): Z96.612 - PRESENCE OF LEFT ARTIFICIAL SHOULDER JOINT (6) Urinary retention Current Visit: Yes Status: Acute Code(s): R33.9 - RETENTION OF URINE, UNSPECIFIED
[2023-11-16 06:21] LABS: Hematocrit 26.4 % (40.1-51.0); Hemoglobin 8.8 g/dL (13.7-17.5); Mean Cell Volume 82.5 fL (79.0-92.2); Mean Corpuscular Hemoglobin 27.5 pg (25.7-32.2); Mean Corpuscular Hgb Concent. 33.3 g/dL (32.3-36.5); Mean Platelet Volume 11.5 fL (9.4-12.4); Platelet Count 158 x10^3/uL (163-337); Red Cell Distribution Width 15.3 % (11.6-14.4); White Blood Count 13.9 x10^3/uL (4.23-9.07)
[2023-11-16 06:36] LABS: ALBUMIN 3.4 g/dL (3.5-5.0); ANION GAP 15.5 MEQ/L (5-15); BILIRUBIN,TOTAL 0.9 mg/dL (0.2-1.3); Calcium 8.3 mg/dL (8.4-10.2); Creatinine 1 1.53 mg/dL (0.66-1.25); EST GLOMERULAR FILTRATION RATE 45.7 ML/MIN; Potassium 4.3 mmol/L (3.5-5.1); Total Protein 6.7 g/dL (6.3-8.2)
[2023-11-16 07:14] LABS: Lymphocytes 12 % (21.8-53.1); Monocyte 46 % (5.3-12.2); Neutrophils 42 % (34.0-67.9); Platelet Estimate NORMAL (NORMAL); Total Cells Counted 100
[2023-11-16 09:37] LABS: ALBUMIN 3.6 g/dL (3.5-5.0); ANION GAP 16.9 MEQ/L (5-15); BILIRUBIN,TOTAL 0.9 mg/dL (0.2-1.3); Calcium 8.2 mg/dL (8.4-10.2); Creatinine 1 1.5 mg/dL (0.66-1.25); EST GLOMERULAR FILTRATION RATE 46.8 ML/MIN; Potassium 4.2 mmol/L (3.5-5.1); Total Protein 6.9 g/dL (6.3-8.2)
[2023-11-16] MEDS: Lopressor 25MG Tab PO SCH (10:40)
--- NOTE | 2023-11-16 11:43 | PCM.CONS ---
History of Present Illness - Date of Consult Date of Encounter: 11/16/23 Consulting Filter Cleaner: PRATIBHA SMITH MD Requesting Provider: Attending Provider: KRISTINE MANRIQUEZ MD Primary Care Provider: PCP: GUSTAVO ROBERTS - Consult Narrative Reason for Consult: Atrial fibrillation HPI: Patient is a 78M who presented to the hospital with inability to urinate after shoulder surgery. He presented with hypotension and tachycardia, concerning for sepsis. Initially had AFRVR with rats in the 140s. Started on IV dilt, and converted to sinus but now back in AF with rates up to 130s. Denies chest pain or palpitations. Never had AF before. Denies lightheadedness or dizziness. Echocardiogram shows normal EF without valvular abnormalities. cc:: The requesting physician will be sent a copy of the consult. - Past Medical History Past Medical History: Yes Neurological History: No Pertinent History ENT History: Cataracts, Macular Degeneration, Other Cardiac History: High Cholesterol Respiratory History: Pneumonia Endocrine Medical History: No Pertinent History Musculoskelatal History: Osteoarthritis GI Medical History: No Pertinent History History: No Pertinent History Pyscho-Social History: No Pertinent History Male Reproductive Disorders: No Pertinent History Comment: Hx bilateral shoulder replacements 2016 and 2017. Glaucoma. Toenail fungus. Diverticulitis - Past Surgical History Past Surgical History: Yes Neuro Surgical History: No Pertinent History Cardiac History: No Pertinent History Respiratory Surgery: No Pertinent History GI Surgical History: No Pertinent History Genitourinary Surgical Hx: No Pertinent History Musculskeletal Surgical Hx: Orthopedic Surgery Male Surgical History: No Pertinent History Other Surgical History: both shoulders-hemis Significant Family History: no pertinent family hx - Social History Smoking Status: Never smoker Exposure to second hand smoke: No Alcohol: None Drug Use: none - Social Determinants of Health Will the patient participate in the screening: Yes Do you worry about a steady place to live?: No Do you have any problems with any of the following?: No known problems In the past 12 months,have you had to go without utilities?: No Have you or anyone in your house had to go without enough: No Transportation Issues: No Has anyone in your support network made you feel unsafe?: No Does the patient want assistance with any of the above?: No Medications & Allergies Home Medications: Home Medication List Aspirin EC 81 mg [Ecotrin 81 mg] 81 mg PO DAILY 11/14/23 [History Confirmed 11/14/23] Oxycodone HCl 10 mg PO Q4HPRN PRN 11/14/23 [History Confirmed 11/14/23] Allergies/Adverse Reactions: Allergies Allergy/AdvReac Type Severity Reaction Status Date / Time ibuprofen [From Motrin] Allergy Intermediate Hoarseness Verified 11/14/23 11:48 of voice Penicillins AdvReac Mild Rash Verified 11/14/23 17:40 Sulfa (Sulfonamide AdvReac Verified 11/14/23 11:48 Antibiotics) Exam - Vitals Vital Signs: Vital Signs - 24 hr Temp Pulse Resp BP BP Pulse Ox 11/16/23 11:00 108 H 12 105/63 11/16/23 10:01 103 H 25 H 109/61 11/16/23 09:00 105 H 21 109/74 11/16/23 08:45 99 H 17 107/67 11/16/23 08:00 92 H 20 107/67 95 11/16/23 07:13 96 H 20 116/76 11/16/23 07:00 99 H 20 116/76 96 11/16/23 06:13 94 H 20 99/64 11/16/23 06:00 94 H 20 99/64 94 L 11/16/23 05:13 91 H 17 114/70 11/16/23 05:00 91 H 17 114/70 95 11/16/23 04:13 93 H 23 103/72 11/16/23 04:01 97.6 F 93 H 23 103/72 95 11/16/23 04:00 93 H 11/16/23 03:13 89 22 125/69 11/16/23 03:01 89 22 125/69 94 L 11/16/23 02:13 101 H 27 H 117/86 11/16/23 02:02 87 26 H 117/86 93 L 11/16/23 01:01 98.1 F 155 H 24 126/74 95 11/16/23 00:01 155 H 11/16/23 00:00 116 H 24 118/96 95 11/15/23 23:01 122 H 26 H 135/89 94 L 11/15/23 22:00 109 H 26 H 128/66 94 L 11/15/23 21:00 78 34 H 131/76 94 L 11/15/23 20:00 98.8 F 86 24 140/73 95 11/15/23 19:00 83 23 138/71 94 L 11/15/23 18:00 84 25 H 151/67 93 L 11/15/23 17:31 83 28 H 152/61 93 L 11/15/23 17:30 93 H 20 96 11/15/23 17:20 87 23 95 11/15/23 17:10 85 21 95 11/15/23 17:05 89 22 11/15/23 16:43 133/76 11/15/23 16:40 133/76 11/15/23 16:09 98.9 F 90 21 152/74 95 11/15/23 16:08 90 24 95 11/15/23 16:05 82 11/15/23 16:02 99.0 F 89 36 H 95 11/15/23 15:00 82 21 116/78 94 L 11/15/23 14:00 90 27 H 123/61 94 L 11/15/23 13:00 98.3 F 83 33 H 128/73 97 11/15/23 12:30 84 11/15/23 12:02 91 H 26 H 119/55 95 11/15/23 12:00 98.3 F General:: alert and oriented x 4 Cardiovascular Exam: irregular Respiratory Exam: normal breath sounds SpO2: 95 Gastrointestinal/Abdomen Exam: soft, normal bowel sounds Extremity Exam: normal inspection Neurologic: assisted living executive director II-XII grossly intact Results Vital Signs: Vital Signs - 24 hr Temp Pulse Resp BP BP Pulse Ox 11/16/23 11:00 108 H 12 105/63 11/16/23 10:01 103 H 25 H 109/61 11/16/23 09:00 105 H 21 109/74 11/16/23 08:45 99 H 17 107/67 11/16/23 08:00 92 H 20 107/67 95 11/16/23 07:13 96 H 20 116/76 11/16/23 07:00 99 H 20 116/76 96 11/16/23 06:13 94 H 20 99/64 11/16/23 06:00 94 H 20 99/64 94 L 11/16/23 05:13 91 H 17 114/70 11/16/23 05:00 91 H 17 114/70 95 11/16/23 04:13 93 H 23 103/72 11/16/23 04:01 97.6 F 93 H 23 103/72 95 11/16/23 04:00 93 H 11/16/23 03:13 89 22 125/69 11/16/23 03:01 89 22 125/69 94 L 11/16/23 02:13 101 H 27 H 117/86 11/16/23 02:02 87 26 H 117/86 93 L 11/16/23 01:01 98.1 F 155 H 24 126/74 95 11/16/23 00:01 155 H 11/16/23 00:00 116 H 24 118/96 95 11/15/23 23:01 122 H 26 H 135/89 94 L 11/15/23 22:00 109 H 26 H 128/66 94 L 11/15/23 21:00 78 34 H 131/76 94 L 11/15/23 20:00 98.8 F 86 24 140/73 95 11/15/23 19:00 83 23 138/71 94 L 11/15/23 18:00 84 25 H 151/67 93 L 11/15/23 17:31 83 28 H 152/61 93 L 11/15/23 17:30 93 H 20 96 11/15/23 17:20 87 23 95 11/15/23 17:10 85 21 95 11/15/23 17:05 89 22 11/15/23 16:43 133/76 11/15/23 16:40 133/76 11/15/23 16:09 98.9 F 90 21 152/74 95 11/15/23 16:08 90 24 95 11/15/23 16:05 82 11/15/23 16:02 99.0 F 89 36 H 95 11/15/23 15:00 82 21 116/78 94 L 11/15/23 14:00 90 27 H 123/61 94 L 11/15/23 13:00 98.3 F 83 33 H 128/73 97 11/15/23 12:30 84 11/15/23 12:02 91 H 26 H 119/55 95 11/15/23 12:00 98.3 F Pain Assessment - Last Documented Pain Intensity 6 Pain Scale Used 0-10 Pain Scale Intake and Output: Intake & Output 11/13/23 11/14/23 11/15/23 11/16/23 11:59 11:59 11:59 11:59 Intake Total 2421 1707 Output Total 6429 9294 Balance 796 -1068 Weight 81.6 kg 82.1 kg 84.7 kg LAB: I have reviewed the Labs in [employer]. Radiology Exams: Radiology Procedures Category Date Time Status CHEST 1 VIEW (PORTABLE) Routine Exams 11/15/23 08:00 Completed CHEST WITH CONTRAST [CT] Stat Exams 11/14/23 12:49 Completed ECHO W/2D AND DOPPLER [US] Routine Exams 11/15/23 19:10 Taken Renal Ultrasound [KIDNEY] [US] Stat Exams 11/15/23 09:40 Completed Tracing 5 Attestation: I have reviewed this EKG and interpreted as documented below. Rhythm Strip: Atrial Fibrillation - ECHO Last ECHO: normal LVEF, no effusion Echo: image reviewed by me Multi-Disciplinary Progress Notes: Multi-Disciplinary Progress Notes 11/16/23 11:28 Radiology Note by AVTAR MEAD TRANSTHORACIC ECHOCARDIOGRAM 11/15/2023: 1. Patient is in sinus rhythm. 2. Moderately dilated left atrium. Other chamber sizes are normal. 3. Mild concentric left ventricular hypertrophy. 4. Normal left ventricular systolic function without focal wall motion abnormalities. Estimated EF 65%. 5. Moderate diastolic dysfunction. 6. Normal right ventricular systolic function. 7. Mild aortic sclerosis without stenosis. 8. Doppler: Mild tricuspid regurgitation. 9. Mild pulmonary hypertension with an estimated PA systolic pressure 48 mmHg. 10. Mildly elevated right atrial pressure. 11. No pericardial effusion. Avtar Mead MD [facility] Initialized on 11/16/23 11:28 - END OF NOTE Assessment & Plan (1) Atrial fibrillation with RVR Current Visit: Yes Status: Acute Code(s): I48.91 - UNSPECIFIED ATRIAL FIBRILLATION - Encounter Encounter: "The entirety of this encounter was performed via Telemedicine using audio and visual "
[2023-11-16] MEDS: Lanoxin 0.5 MG/2 ML INJECTION IV ONE (12:21)
[2023-11-16 14:31] LABS: ANION GAP 16.6 MEQ/L (5-15); Calcium 7.7 mg/dL (8.4-10.2); Creatinine 1 1.49 mg/dL (0.66-1.25); EST GLOMERULAR FILTRATION RATE 47.2 ML/MIN; Potassium 4.2 mmol/L (3.5-5.1)
[2023-11-16 18:21] LABS: ANION GAP 16.1 MEQ/L (5-15); Calcium 7.6 mg/dL (8.4-10.2); Creatinine 1 1.67 mg/dL (0.66-1.25); EST GLOMERULAR FILTRATION RATE 41.1 ML/MIN; Potassium 4.2 mmol/L (3.5-5.1)
[2023-11-16] MEDS: Lanoxin 0.5 MG/2 ML INJECTION IV SCH (18:40)
[2023-11-16] MEDS: MAGNESIUM SULF 2 G/50 ML BAG 2 GM/50 ML PIGGYBACK IV ONE (19:59)
--- NOTE | 2023-11-16 20:41 | XRAY ---
CLINICAL HISTORY: leukocytosis, sepsis, urinary reten COMPARISON: Comparison is made with the previous ultrasound dated 10/23/2022. TECHNIQUE: Non-contrast CT of the abdomen and pelvis was performed, with the following protocol: axial images, and reconstructed coronal and sagittal images. One of the following dose reduction techniques was utilized for this exam: Automated exposure control, adjustment of the mA and/or kV according to patient size, and use of iterative reconstruction.CTDI: 11.09mGy, DLP: 628.72mGy*cm. FINDINGS: Abdomen: Lung bases: A consolidation/atelectasis is seen in the left lung base. Liver: Normal in size, shape, and density. No focal lesions, cysts, or masses were identified. Gallbladder and Biliary System: The gallbladder is normal in size and shape. No wall thickening, pericholecystic fluid, or gallstones were identified. Pancreas: Pancreatic head, body, and tail are visualized and appear normal in size and density. No pancreatic masses or calcifications were noted. Spleen: Normal in size, shape, and density. No splenic masses were identified. Multiple tiny parenchymal calcifications are noted likely old granulomatous. Kidneys and Adrenal Glands: Both kidneys are normal in size, shape, and position. Cortical thickness is within normal limits. Few small hypodense bilateral renal cortical lesions are seen measuring up to 1.2 cm at the right lower pole likely cysts. No renal calculi or hydronephrosis. There is a thickening of the left posterior renal fascia. Adrenal glands are unremarkable. Abdominal Aorta and Vessels: The abdominal aorta and major branches show vascular calcifications. Pelvis: Urinary Bladder: Decompressed by Maldonado's catheter. No intraluminal lesions. Prostate: Normal in size and contour. No masses. 7 mm calcification is seen at midline posterior to the prostatic urethra. Seminal Vesicles: Normal appearance without abnormal enlargement or mass. Peritoneal and Retroperitoneal Structures: No free fluid or abnormal fluid collections were identified within the abdomen or pelvis. No lymphadenopathy was noted. Bowel: The visualized bowel loops are normal in caliber. Colonic diverticulosis with no evidence of diverticulitis. No evidence of bowel obstruction or wall thickening. Appendix: A short tubular structure at the cecum, may represent a normal appendix or stump, for c. Bones and Soft Tissues: Decreased bone density. Degenerative changes of the spine, sacroiliac, and hip joint spaces, and symphysis pubis. IMPRESSION: 1. Bilateral renal cortical cysts. (Interval increase in number when compared to prior ultrasound.) 2. Thickened left posterior renal fascia, nonspecific. 3. Midline calcific focus at the posterior aspect of the prostate, possibility of a urethral stone could not be totally excluded. Further evaluation with ascending urethrography is suggested if clinically indicated. 4. Multiple tiny splenic calcified granulomas. Electronically Signed by: Koffi Seay MD. (11/16/2023 20:36:59 EDT)
[2023-11-16 22:24] LABS: ANION GAP 15.7 MEQ/L (5-15); Calcium 7.8 mg/dL (8.4-10.2); Creatinine 1 1.59 mg/dL (0.66-1.25); EST GLOMERULAR FILTRATION RATE 43.6 ML/MIN; Potassium 4.2 mmol/L (3.5-5.1)
[2023-11-17 06:19] LABS: Absolute Neutrophil Ct (ANC) 3.74 x10^3/uL (1.78-5.38); BASOPHIL % 0.2 % (0.2-1.2); Basophil (Absolute #) 0.02 x10^3/uL (0.01-0.08); Eosinophil % 0.4 % (0.8-7.0); Eosinophil (Absolute #) 0.04 x10^3/uL (0.04-0.54); Hematocrit 25.9 % (40.1-51.0); Hemoglobin 8.3 g/dL (13.7-17.5); IMMATURE GRAN # 0.33 x10^3u/L (0.001-0.031); IMMATURE GRAN % 3.6 % (0.001-0.429); Lymphocyte (Absolute #) 0.89 x10^3/uL (1.32-3.57); Lymphocytes % 9.6 % (21.8-53.1); Mean Cell Volume 84.4 fL (79.0-92.2); Mean Platelet Volume 11.1 fL (9.4-12.4); Monocyte (Absolute #) 4.22 x10^3/uL (0.30-0.82); Monocytes % 45.7 % (5.3-12.2); Neutrophil % 40.5 % (34.0-67.9); Platelet Count 184 x10^3/uL (163-337); Red Blood Count 3.07 x10^6/uL (4.63-6.08); Red Cell Distribution Width 14.8 % (11.6-14.4); White Blood Count 9.2 x10^3/uL (4.23-9.07)
[2023-11-17 06:34] LABS: ALBUMIN 3.2 g/dL (3.5-5.0); ANION GAP 15.4 MEQ/L (5-15); BILIRUBIN,TOTAL 0.8 mg/dL (0.2-1.3); Creatinine 1 1.5 mg/dL (0.66-1.25); EST GLOMERULAR FILTRATION RATE 46.8 ML/MIN; MAGNESIUM 1.8 mg/dL (1.6-2.3); Potassium 4.4 mmol/L (3.5-5.1); Total Protein 6.6 g/dL (6.3-8.2)
[2023-11-17 07:07] LABS: Slide Review 1 YES
--- NOTE | 2023-11-17 11:56 | PCM.DS ---
Discharge Summary Date of Admission: 11/14/23 17:17 Date of Discharge: 11/17/23 Admitting Physician: KRISTINE MANRIQUEZ MD Consults: Consults on Case 11/15/23 23:10 Tele-Health Consult ROUTINE Primary Care Provider: GUSTAVO ROBERTS Allergies Allergies ibuprofen [From Motrin] Allergy (Intermediate, Verified 11/14/23 11:48) Hoarseness of voice Penicillins Adverse Reaction (Mild, Verified 11/14/23 17:40) Rash Sulfa (Sulfonamide Antibiotics) Adverse Reaction (Verified 11/14/23 11:48) Hospital Summary - Hospital Course Hospital Course: is a 78 year old male with a pmhx of cataracts, macular degeneration, and bilateral shoulder replacements, most recently a left total replacement performed by Dr. Hendrickson three days ago. Patient reports urinary retention since his surgical procedure. Upon arrival to the ED patient was noted with AFIB RVR on his EKG. He is completely asymptomatic with this. His only complaint was low abdominal pain and pressure from his urinary retention which was relieved by placement of a rene catheter (975mls out with placement). He also has complaints of 6/10 left shoulder pain from recent surgery. Denies fever,cough, sob, cp, abdominal pain, VALENTINO, dizziness, N/V/D.Patient meeting sepsis criteria upon presentation to ED with HR up to 156, WBC of 36.8, fever, WILBERTO, and hypotension. DDimer elevated at 1.27 - CT negative for PE demonstrating new moderate left lower lobe subsegmental atelectasis with left hemidiaphragm elevation and new revision left shoulder arthroplasty with postoperative changes soft tissue swelling, and diffuse soft tissue emphysema. EKG initially showing A-fib, Non-specific ST Changes, Other (No acute ischemic changes on today's twelve-lead EKG. Repeat twelve-lead EKG on 11/14/2023 1620 reveals heart rate of 95 bpm. The computer readout shows an atrial flutter rhythm the computer says is ST elevation consider inferior injury. Rivet Spinner Dr. Herrmann consulted he reviewed the two twelve-lead EKG and the 2 troponin levels that were drawn approximately 2-1/2 to 3 hours apart. He feels that there is no evidence of any acute ischemia. Patient with leukocytosis and a significant portion of that 36,000 white count are monocytes consistent with mycoplasma infection. No infiltrate is on the chest CT scan. Physical exam is unremarkable. Lung sounds clear. Surgical incision CDI with no surrounding erythema, drainage, induration, or streaking. Patient started on Cardizem drip, bicarb drip, and Azithromycin. Admission for AFIB RVR/ sepsis with unknown source of infection, and WILBERTO. During hospital course patient was able to wean off of cardizem drip and metoprolol 25mg bid initiated per cardiology recommendations. CXR with new infiltrate 11/16/23. WILBERTO improving, acidosis improving. Attempted to D/C rene and patient unable to urinate and had to be replaced. CT abdomen showing Midline calcific focus at the posterior aspect of the prostate, possibility of a 7mm urethral stone. Patient to transfer to higher level of care for continued acidosis, urinary retention, and atrial fib. Patient agreeable to plan and has been accepted at [facility]. Discharge Note N Latest Assessment & Plan (1) Sepsis Current Visit: Yes Status: Acute Assessment & Plan: -Unknown source of infection - leukocytosis and a significant portion of that 36,000 white count are monocytes consistent with mycoplasma infection -Meets criteria with leukocytosis, HR, fever, WILBERTO, hypotension -Blood cultures x 1 in ED - draw 2nd set -mycoplasma culture -discussed with lab- will perform pcr and also obtain sputum culture -procal -LA wnl -supplemental oxygen with spo2 goal > 92% - currently on RA -baseline -ABG if significant hypoxia/lethargy -Azithromycin -Target map >65 -chest ct negative for PE -demonstrates . New moderate left lower lobe subsegmental atelectasis with left hemidiaphragm elevation -lovenox 11/14: -WBC improving 18.8<36.8 -Afebrle overnight -blood/sputum cultures pending -mycoplasma pcr pending -repeat cxr showing new mild left lung base infiltrate/atelectasis/effusion -IS 11/15: -CXR with new infiltrate - continue azithromycin -Afebrile overnight -cultures no growth to date ##Metabolic Acidosis --unknown etiology -bicarb drip with titration -CMP q4 -hydroxybutyric acid level pending 11/14: -Improving - drip Dcd -oral bicarb -Monitor closely 11/15: -bicarb drip resumed - improving -BMP q4h 11/16: -improved - oral bicarb (2) Atrial fibrillation with RVR Current Visit: Yes Status: Acute Assessment & Plan: -Cardizem drip started in ED -Repeat EKG NS - drip discontinued -metoprolol 12.5 bid -TSH -optimize electrolytes -consider cardiac consult -monitor BP closely -PAIGE-VASC score of 2 for risk factor of age >75 11/14: -HR in NS- controlled -Metoprolol 12.5mg bid -TSH WNL 11/15: -Pt's HR overnight in the 120's-130's with rhythm Aflutter - metoprolol dose 12.5 x 1 ordered by overnight doc- with no resolve then Cardizem bolus of 15mg IV stat and then start cardizem drip @ 5mg/hr with a target HR of 100. tele cardiology consulted metoprolol increased to 25mg bid Code(s): I48.91 - UNSPECIFIED ATRIAL FIBRILLATION (3) Leukocytosis Current Visit: Yes Status: Acute Assessment & Plan: -see sepsis for plan Code(s): D72.829 - ELEVATED WHITE BLOOD CELL COUNT, UNSPECIFIED (4) Acute on chronic kidney failure Current Visit: Yes Status: Acute Assessment & Plan: -Baseline creat around 1.4-1.5 - 1.63 on presentation -may be secondary to urinary retention -monitor renal/lytes closely -Bicarb drip at 100ml/hr -avoid nephrotoxic medications 11/14: -creat increased today at 1.78- will continue IVF may be secondary to contrast exam yesterday -Renal us - with Nonvisualization left kidney due to recent left shoulder surgery with brace/support in situ. Stable small right renal cyst. 11/15: -creat improving now at 1.53<1.78 Code(s): N17.9 - ACUTE KIDNEY FAILURE, UNSPECIFIED; N18.9 - CHRONIC KIDNEY DISEASE, UNSPECIFIED (5) Status post replacement of left shoulder joint Current Visit: Yes Status: Acute Assessment & Plan: -Surgery with Dr. Hendrickson x 3 days ago -Surgical site CDI - no erythema, drainage, edema, streaking -CT scan demonstrates interval revision left shoulder arthroplasty with new bipolar prosthesis, soft tissue swelling, and diffuse soft tissue emphysema -continue home pain meds Code(s): Z96.612 - PRESENCE OF LEFT ARTIFICIAL SHOULDER JOINT (6) Urinary retention Current Visit: Yes Status: Acute Assessment & Plan: -Post surgery -F/C placed with 975ml residual out on insertion -UA with no signs of infection 11/15: -Will attempt to d/c FC today with trial void 11/16: -Unable to d/c rene- failed void trial - CT ab/pelvis concerning for urethral stone 7mm -transfer to higher level of care Code(s): R33.9 - RETENTION OF URINE, UNSPECIFIED I spent 35 minutes [id number] with the patient on the day of discharge performing discharge exam, discussing hospital stay and discharge instructions with patient and caregivers, preparation of discharge records, prescriptions & referral forms and addressing any questions/concerns the patient had as documented above. - Vitals & Intake/Output Vital Signs: Vital Signs Temperature 98.5 F 11/17/23 09:00 Pulse Rate 75 11/17/23 09:00 Respiratory Rate 28 H 11/17/23 09:00 Blood Pressure 144/80 11/17/23 09:00 O2 Sat by Pulse Oximetry 96 11/17/23 08:00 Intake & Output: Intake & Output 11/14/23 11/15/23 11/16/23 11/17/23 11:59 11:59 11:59 11:59 Intake Total 2421 1707 3527 Output Total 1626 2746 4342 Balance 559 -6937 -066 Weight 81.6 kg 82.1 kg 84.7 kg - Lab Result Diagrams: 11/17/23 06:08 11/17/23 06:08 Lab Results-Last 24 Hrs: Lab Results-Last 24 Hours 11/16/23 11/16/23 11/16/23 Range/Units 14:10 18:00 18:02 WBC (4.23-9.07) x10^3/uL RBC (4.63-6.08) x10^6/uL Hgb (13.7-17.5) g/dL Hct (40.1-51.0) % MCV (79.0-92.2) fL MCH (25.7-32.2) pg MCHC (32.3-36.5) g/dL RDW (11.6-14.4) % Plt Count (163-337) x10^3/uL MPV (9.4-12.4) fL Gran % (34.0-67.9) % Immature Gran % (Auto) (0.001-0.429) % Nucleat RBC Rel Count (0.00-0.2) % Eos # (Auto) (0.04-0.54) x10^3/uL Immature Gran # (Auto) (0.001-0.031) x10^3u/L Absolute Lymphs (auto) (1.32-3.57) x10^3/uL Absolute Monos (auto) (0.30-0.82) x10^3/uL Absolute Nucleated RBC (0.00-0.012) x10^3u/L Lymphocytes % (21.8-53.1) % Monocytes % (5.3-12.2) % Eosinophils % (0.8-7.0) % Basophils % (0.2-1.2) % Absolute Granulocytes (1.78-5.38) x10^3/uL Basophils # (0.01-0.08) x10^3/uL Sodium 136 137 (135-145) mmol/L Potassium 4.2 4.2 (3.5-5.1) mmol/L Chloride 106 104 (98-107) mmol/L Carbon Dioxide 18 L 21 L (22-30) mmol/L Anion Gap 16.6 H 16.1 H (5-15) MEQ/L BUN 26 H 26 H (9-20) mg/dL Creatinine 1.49 H 1.67 H (0.66-1.25) mg/dL Estimated GFR 47.2 41.1 ML/MIN Glucose 150 H 150 H (74-106) mg/dL Calcium 7.7 L 7.6 L (8.4-10.2) mg/dL Magnesium 1.5 L (1.6-2.3) mg/dL Total Bilirubin (0.2-1.3) mg/dL AST (17-59) U/L ALT (0-50) U/L Alkaline Phosphatase (38-126) U/L Serum Total Protein (6.3-8.2) g/dL Albumin (3.5-5.0) g/dL Slides for Path Review 11/16/23 11/17/23 11/17/23 Range/Units 22:06 06:08 06:08 WBC 9.2 H (4.23-9.07) x10^3/uL RBC 3.07 L (4.63-6.08) x10^6/uL Hgb 8.3 L (13.7-17.5) g/dL Hct 25.9 L (40.1-51.0) % MCV 84.4 (79.0-92.2) fL MCH 27.0 (25.7-32.2) pg MCHC 32.0 L (32.3-36.5) g/dL RDW 14.8 H (11.6-14.4) % Plt Count 184 (163-337) x10^3/uL MPV 11.1 (9.4-12.4) fL Gran % 40.5 (34.0-67.9) % Immature Gran % (Auto) 3.6 H (0.001-0.429) % Nucleat RBC Rel Count 0.0 (0.00-0.2) % Eos # (Auto) 0.04 (0.04-0.54) x10^3/uL Immature Gran # (Auto) 0.33 H (0.001-0.031) x10^3u/L Absolute Lymphs (auto) 0.89 L (1.32-3.57) x10^3/uL Absolute Monos (auto) 4.22 H (0.30-0.82) x10^3/uL Absolute Nucleated RBC 0.00 (0.00-0.012) x10^3u/L Lymphocytes % 9.6 L (21.8-53.1) % Monocytes % 45.7 H (5.3-12.2) % Eosinophils % 0.4 L (0.8-7.0) % Basophils % 0.2 (0.2-1.2) % Absolute Granulocytes 3.74 (1.78-5.38) x10^3/uL Basophils # 0.02 (0.01-0.08) x10^3/uL Sodium 137 139 (135-145) mmol/L Potassium 4.2 4.4 (3.5-5.1) mmol/L Chloride 103 107 (98-107) mmol/L Carbon Dioxide 22 20 L (22-30) mmol/L Anion Gap 15.7 H 15.4 H (5-15) MEQ/L BUN 25 H 23 H (9-20) mg/dL Creatinine 1.59 H 1.50 H (0.66-1.25) mg/dL Estimated GFR 43.6 46.8 ML/MIN Glucose 143 H 107 H (74-106) mg/dL Calcium 7.8 L 8.0 L (8.4-10.2) mg/dL Magnesium 1.8 (1.6-2.3) mg/dL Total Bilirubin 0.80 (0.2-1.3) mg/dL AST 57 (17-59) U/L ALT 51 H (0-50) U/L Alkaline Phosphatase 72 (38-126) U/L Serum Total Protein 6.6 (6.3-8.2) g/dL Albumin 3.2 L (3.5-5.0) g/dL Slides for Path Review YES Micro Results-Entire Visit: Microbiology 11/16/23 19:30 Urine Culture - Preliminary Urine, Indwelling Catheter NO GROWTH TO DATE 11/14/23 15:12 Blood Culture - Preliminary Blood 11/14/23 15:30 Blood Culture - Preliminary Blood - Radiology Exams Ordered Rad Exams-Entire Visit: Radiology Procedures Category Date Time Status ABDOMEN AND PELVIS W/0 CONTRAS [CT] Urgent Exams 11/16/23 18:46 Completed ECHO W/2D AND DOPPLER [US] Routine Exams 11/15/23 19:10 Taken - Procedures and Test Procedures and Tests throughout Hospitalization: Therapy Orders & Screens 11/14/23 17:29 EKG REPEAT IN AM Comment: 11/14/23 18:05 EKG ROUTINE Comment: Diagnosis: AFIB RVR/SEPSIS 11/14/23 19:05 Respiratory Therapy Consult ONCE Comment: Reason For Exam: Diagnosis: AFIB RVR/SEPSIS 11/15/23 11:53 Incentive Spirometry UD Comment: Diagnosis: AFIB RVR/SEPSIS 11/15/23 23:07 EKG ROUTINE Comment: Diagnosis: AFIB RVR/SEPSIS 11/16/23 18:38 EKG ROUTINE Comment: Diagnosis: AFIB RVR/SEPSIS EKG Reason: Other Discharge Exam General Appearance: no apparent distress Neurologic Exam: alert, 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, cooperative Eye Exam: PERRL Ears, Nose, Throat Exam: normal ENT inspection Neck Exam: normal inspection Respiratory Exam: normal breath sounds, lungs clear Cardiovascular Exam: irregular Gastrointestinal/Abdomen Exam: soft, normal bowel sounds Male Genitalia Exam: deferred Rectal Exam: deferred Back Exam: normal inspection Extremity Exam: other (Left arm in sling// surgical incision to left shoulder CDI no surrounding induration, edema, erythema, or drainage) Skin Exam: normal color Wound Assessment: Skin/Wound Assessment Wound/Incision Assessment Start: 11/14/23 18:08 Text: Status: Active Freq: Q6H Protocol: Document 11/17/23 08:00 BRAULIOJOSE (Rec: 11/17/23 08:50 [facility] [id number]) Wound/Incision Assessment Left Shoulder Wound Assessment Shift Assessment Wound Type Incision Wound Stage Non Pressure Wound Drainage Amount None General Appearance Well Approximated,Open to air, Clean/Dry Surrounding Tissue [place] Comment skin glue covering the incision Wound Photo Photo Taken No Final Diagnosis/Problem List - Final Discharge Diagnosis/Problem (1) Sepsis Current Visit: Yes Status: Acute (2) Atrial fibrillation with RVR Current Visit: Yes Status: Acute Code(s): I48.91 - UNSPECIFIED ATRIAL FIBRILLATION (3) Leukocytosis Current Visit: Yes Status: Resolved Code(s): D72.829 - ELEVATED WHITE BLOOD CELL COUNT, UNSPECIFIED (4) Acute on chronic kidney failure Current Visit: Yes Status: Acute Code(s): N17.9 - ACUTE KIDNEY FAILURE, UNSPECIFIED; N18.9 - CHRONIC KIDNEY DISEASE, UNSPECIFIED (5) Status post replacement of left shoulder joint Current Visit: Yes Status: Acute Code(s): Z96.612 - PRESENCE OF LEFT ARTIFICIAL SHOULDER JOINT (6) Urinary retention Current Visit: Yes Status: Acute Code(s): R33.9 - RETENTION OF URINE, UNSPECIFIED - Discharge Disposition: DC TO OTHER HOSP Condition: Fair Prescriptions: New Docusate Sodium 100 mg [Docusate Sodium 100 MG] 100 mg PO BIDPRN PRN cap PRN Reason: Constipation Enoxaparin Sodium [Enoxaparin Sodium] 40 mg SQ DAILY Metoprolol Tartrate 25 mg [Lopressor 25MG Tab] 25 mg PO BID tablet Acetaminophen 325 mg [Tylenol 325 mg] 650 mg PO Q4H PRN PRN tablet PRN Reason: Pain, Fever, Headache Azithromycin 500 mg/250 ml [Zithromax 500 MG/ 250 ML NaCl Premix] 500 mg IV Q24H10 iv piggy Ondansetron HCl 4 mg/2 ml [Zofran 4 MG/2 ML VIAL] 4 mg IV Q6H PRN PRN PRN Reason: Nausea/Vomiting Continue Aspirin EC 81 mg [Ecotrin 81 mg] 81 mg PO DAILY Oxycodone HCl 10 mg PO Q4HPRN PRN PRN Reason: Pain Follow up with: CAN HENDRICKSON [NON-STAFF PHY W/O PRIVILEGES] - 12/02/23 2:30 pm GUSTAVO ROBERTS [Primary Care Provider] -
[2023-11-17 13:15] VITALS: TEMP 98.2
[2023-11-17 14:26] VITALS: O2SAT 96
[2023-11-17 15:17] VITALS: BP 140/74; PULSE 70; RESP 25
== END 2023-11-17 15:33 | DRG 872 ==
LOC: ED 11:46 → OBSVTOIN 17:17 → ICU 17:17
PROVIDERS: ADMIT Internal Medicine; ATTEND Internal Medicine
DX: A41.9 Sepsis, unspecified organism (principal); I48.20 Chronic atrial fibrillation, unspecified; E87.20 Acidosis, unspecified; N17.9 Acute kidney failure, unspecified; R33.9 Retention of urine, unspecified; D72.829 Elevated white blood cell count, unspecified; N18.9 Chronic kidney disease, unspecified; R50.9 Fever, unspecified; E78.5 Hyperlipidemia, unspecified; Z96.612 Presence of left artificial shoulder joint; Z79.899 Other long term (current) drug therapy
CPT/HCPCS: 36000; 36415; 36600; 71045; 71260; 74176; 76770; 80048; 80053; 80179; 82010; 82375; 82803; 83036; 83605; 83735; 83880; 84145; 84443; 84484; 85025; 85379; 85610; 87040; 87086; 87581; 93005; 93306; 94760; 96374; 96375; 99285; Q3014; J0456; J1160; J1650; J1940; J2270; J2405; A9270-GY; J3475

== ENCOUNTER 2023-11-20 18:04 | Emergency (ER) | payer MEDICARE, OTHER | END 2023-11-20 18:34 | disposition left against medical advice (07) | LOC: ED 18:04 | DX: Z53.21 Procedure and treatment not carried out due to patient leaving prior to being seen by health care provider (principal) ==

== ENCOUNTER 2023-12-07 11:13 | Emergency (ER) | payer MEDICARE, OTHER ==
[2023-12-07 11:26] VITALS: PULSE 54; TEMP 98.2
--- NOTE | 2023-12-07 12:35 | ERPHSYRPT ---
- History of Present Illness Time Seen by Provider: 12/07/23 12:20 Source: patient Exam Limitations: no limitations Patient Subjective Stated Complaint: pt has a rene cath in since 11/17/2023 and has an appt on 12/10/23 butr pt is itching at the site of entrance of the cat heter and wants to make sure that he doen't have an infection Triage Nursing Assessment: Pt brought to the ER by a friend, vitals wnl, denies pain only itching, pulses normal, rene catheter in place, skin n/w/d, no difficulty breathing, doesn't appear to be in any distress, pt had been on cefuxomine for a uti that he took for 7 days on 11/16 Physician History: Pt c/o itching and burning around the penile meatus where he has had a catheter in place for the past 19 days, concerned about a UTI. Pt had the catheter placed 11/17/23 for urinary retention and has an appointment with Dr. Cote(Urologist in [place]) in 3 days. Pt denies chest pain, abdominal pain, nausea, vomiting, diarrhea, fever. Allergies/Adverse Reactions: ibuprofen [From Motrin] Allergy (Intermediate, Verified 12/07/23 11:26) Hoarseness of voice Penicillins Adverse Reaction (Mild, Verified 12/07/23 11:26) Rash Sulfa (Sulfonamide Antibiotics) Adverse Reaction (Verified 12/07/23 11:26) Home Medications: Aspirin EC 81 mg [Ecotrin 81 mg] 81 mg PO DAILY 11/14/23 [History] Acetaminophen 325 mg [Tylenol 325 mg] 500 mg PO Q4H PRN PRN 12/07/23 [History] Apixaban [Eliquis] 2.5 mg PO BID 12/07/23 [History] Ferrous Sulfate 325 mg [Feosol 325 mg] 325 mg PO HS 12/07/23 [History] Tamsulosin HCl 0.4 mg [Flomax 0.4 MG] 0.4 mg PO DAILY 12/07/23 [History] Hx Tetanus, Diphtheria Vaccination/Date Given: Yes Hx Influenza Vaccination/Date Given: Yes Hx Pneumococcal Vaccination/Date Given: Yes Travel Risk - International Travel Have you traveled outside of the country in past 3 weeks: No - Emerging Infectious Disease Are you exhibiting symptoms associated with any current EIDs: No - Past Medical History Pertinent Past Medical History: Yes Neurological History: No Pertinent History ENT History: Cataracts, Macular Degeneration, Other Cardiac History: Other Respiratory History: Other Endocrine Medical History: No Pertinent History Musculoskeletal History: Osteoarthritis, Other GI Medical History: No Pertinent History History: No Pertinent History Psycho-Social History: No Pertinent History Male Reproductive Disorders: No Pertinent History Other Medical History: Metabolic Acidosis, Abdominal Pain, Constipation, Pneumonia d/t COVID-19, Hypoxia, Fever, Syncope, Leykocytosis, A-Fib with RVR, Sepsis, Chronic Kidney Failure (acute), L Shoulder TSA, Urinary retention - Past Surgical History Past Surgical History: Yes Neuro Surgical History: No Pertinent History Cardiac: No Pertinent History Respiratory: No Pertinent History Gastrointestinal: No Pertinent History Genitourinary: No Pertinent History Musculoskeletal: Orthopedic Surgery Male Surgical History: No Pertinent History Other Surgical History: both shoulders-hemis Significant Family History: no pertinent family hx - Social History Smoking Status: Never smoker Exposure to second hand smoke: No Drug Use: none Patient Lives Alone: No - Social Determinants of Health Will the patient participate in the screening: Yes Do you worry about a steady place to live?: No Do you have any problems with any of the following?: No known problems In the past 12 months,have you had to go without utilities?: No Transportation Issues: No Has anyone in your support network made you feel unsafe?: No Have you or anyone in your house had to go without enough: No - Review of Systems Constitutional: No Fever Cardiac: No Chest Pain Abdominal/Gastrointestinal: No Abdominal Pain, No Nausea, No Vomiting, No Diarrhea Genitourinary Symptoms: Other (burning & itching around Rene catheter insertion) - Nursing Vital Signs Nursing Vital Signs: Initial Vital Signs Temperature 98.2 F 12/07/23 11:20 Pulse Rate 54 L 12/07/23 11:20 Blood Pressure 125/56 12/07/23 11:20 O2 Sat by Pulse Oximetry 98 12/07/23 11:20 Pain Scale Pain Intensity 0 - Physical Exam General Appearance: alert Eye Exam: eyes nml inspection Ears, Nose, Throat Exam: TMs normal, pharynx normal Neck Exam: normal inspection Respiratory Exam: lungs clear, airway intact Cardiovascular Exam: normal heart sounds Gastrointestinal/Abdomen Exam: normal bowel sounds Male Genital Exam: no hernia, No erythema (Rene catheter in place without erythema, tenderness or edema.) SpO2 Interpretation: normal SpO2: 98 O2 Delivery: Room Air - Course Nursing assessment & vital signs reviewed: Yes Ordered Tests: Active Orders 24 hr Category Date Time Status CULTURE,URINE Stat Lab 12/07/23 12:50 Ordered UA W/RFX UR CULTURE Stat Lab 12/07/23 12:50 Completed Lab/Rad Data: Laboratory Results 12/07/23 Range/Units 12:50 Urine Color Yellow (Yellow) Urine Appearance Clear (Clear) Urine pH 6.0 (4.6-8.0) Ur Specific [place] <=1.005 (1.005-1.030) Urine Protein Negative (Negative) Urine Glucose (UA) Negative (Negative) mg/dL Urine Ketones Negative (Negative) Urine Blood Trace (Negative) Urine Nitrite Negative (Negative) Urine Bilirubin Negative (Negative) Urine Urobilinogen 0.2 (0.2) mg/dL Ur Leukocyte Esterase Negative (Negative) U Hyaline Cast (Auto) NONE SEEN (0-2) /LPF Urine Microscopic RBC 0-2 (0-5) /HPF Urine Microscopic WBC 0-2 (0-5) /HPF Ur Epithelial Cells None Seen (None Seen) /HPF Urine Bacteria None Seen (None Seen) /HPF Urine Culture Reflexed NO (NO) - Progress Progress: improved Counseled pt/family regarding: lab results, need for follow-up Medical Desision Making - Diagnostic Testing Diagnostic test were ordered, analyzed, and reviewed by me: Yes - Departure Departure Disposition: Home Clinical Impression: dysuria & puritus penile meatus Condition: Stable Critical Care Time: No Referrals: GUSTAVO ROBERTS [Primary Care Provider] - Follow up/PCP as directed Additional Instructions: Follow up with Urologist in 3 days as scheduled.
[2023-12-07 16:33] LABS: Appearance Clear (Clear); Bacteria None Seen /HPF (None Seen); Bilirubin Negative (Negative); Blood Trace (Negative); Epithelial Cells None Seen /HPF (None Seen); Glucose, Urine Negative (Negative); Hyaline Casts NONE SEEN /LPF (0-2); Ketones Negative (Negative); Leukocyte Esterase Negative (Negative); Nitrite Negative (Negative); Protein,Urine Dip Negative (Negative); RBC 0-2 /HPF (0-5); Specific Gravity <=1.005 (1.005-1.030); Urobilinogen 0.2 mg/dL (0.2); WBC 0-2 /HPF (0-5)
[2023-12-07 16:49] VITALS: O2SAT 98
[2023-12-07 16:50] VITALS: BP 140/72
== END 2023-12-07 16:56 | disposition home or self-care (01) ==
LOC: ED 11:13
DX: L29.89 Other pruritus (principal); R30.0 Dysuria; Z79.01 Long term (current) use of anticoagulants; Z79.899 Other long term (current) drug therapy
CPT/HCPCS: 81001; 87086; 99283

== ENCOUNTER 2024-01-06 13:13 | Emergency (ER) | payer MEDICARE, OTHER ==
[2024-01-06] MEDS ORDERED: Zofran 4 MG/2 ML VIAL ONE (13:28)
[2024-01-06] MEDS: Zofran 4 MG/2 ML VIAL IV ONE (13:29)
[2024-01-06] MEDS ORDERED: Sodium Chloride 0.9% 250 ML 250 ML IV ONE (13:58)
[2024-01-06] MEDS: Sodium Chloride 0.9% 250 ML 250 ML IV SCH (14:01)
[2024-01-06 14:13] LABS: Hematocrit 35.7 % (40.1-51.0); Hemoglobin 11.2 g/dL (13.7-17.5); Mean Cell Volume 89.3 fL (79.0-92.2); Mean Corpuscular Hgb Concent. 31.4 g/dL (32.3-36.5); Mean Platelet Volume 11.9 fL (9.4-12.4); Platelet Count 97 x10^3/uL (163-337); Red Cell Distribution Width 16.6 % (11.6-14.4)
[2024-01-06 14:30] LABS: ALBUMIN 4.3 g/dL (3.5-5.0); ANION GAP 33.2 MEQ/L (5-15); BILIRUBIN,TOTAL 1.8 mg/dL (0.2-1.3); Calcium 9.7 mg/dL (8.4-10.2); Creatinine 1 4.92 mg/dL (0.66-1.25); EST GLOMERULAR FILTRATION RATE 11.2 ML/MIN; Total Protein 7.8 g/dL (6.3-8.2)
[2024-01-06 14:35] LABS: Potassium 6.9 mmol/L (3.5-5.1)
[2024-01-06 14:47] LABS: White Blood Count 138.6 x10^3/uL (4.23-9.07)
--- NOTE | 2024-01-06 15:05 | XRAY ---
Indication: Dizziness. Multiple contiguous axial images obtained through the head without contrast. Comparison: March 10, 2021 Again normal appearing brain parenchyma, ventricles, and bony calvarium for patient's age. Visualized paranasal sinuses and mastoid air cells are clear. Impression: Continued normal CT head without contrast exam.
[2024-01-06] MEDS: Ativan 2 MG/1 ML VIAL IV ONE (15:12)
[2024-01-06 16:02] LABS: BAND 3 % (0.0-2.0); Blastocytes 23 %; Lymphocytes 11 % (21.8-53.1); Metamyelocyte 13 %; Monocyte 24 % (5.3-12.2); Neutrophils 27 % (34.0-67.9); Nucleated Red Blood Cell 3 %
[2024-01-06 16:03] LABS: ANISOCYTOSIS 1+; Platelet Estimate DECREASED (NORMAL)
[2024-01-06] MEDS ORDERED: Calcium Gluconate 10% 1000 MG IV ONE (16:03)
[2024-01-06] MEDS ORDERED: HUMULIN R ONE (16:04)
[2024-01-06] MEDS ORDERED: SODIUM BICARBONATE 50 MEQ/50 ML ABBOJECT IV ONE (16:05)
[2024-01-06] MEDS: Calcium Gluconate 10% 1000 MG IV ONE (16:05)
[2024-01-06] MEDS ORDERED: D50W 50 ml Abboject IV ONE (16:05)
[2024-01-06] MEDS: SODIUM BICARBONATE 50 MEQ/50 ML ABBOJECT IV ONE (16:06)
[2024-01-06] MEDS: HUMULIN R IV ONE (16:06)
[2024-01-06] MEDS: D50W 50 ml Abboject IV ONE (16:06)
[2024-01-06] MEDS: PROVENTIL 2.5 MG/3 ML NEB IH ONE (16:14)
[2024-01-06] MEDS ORDERED: PROVENTIL 2.5 MG/3 ML NEB IH ONE (16:14)
--- NOTE | 2024-01-06 16:42 | XRAY ---
Indication: Acute kidney failure. Dizziness. Vomiting. Multiple contiguous axial images obtained through abdomen and pelvis without contrast. Comparison: November 16, 2023 Lung bases demonstrates bibasilar subsegmental atelectasis/scarring, much less than before. 9 mm left lung base noncalcified nodule unchanged with respect to CT chest February 26, 2020 and favored to be benign given stability over the years. Heart not enlarged. Again bilateral gynecomastia. Noncontrasted stomach and bowel loops appear nonobstructed. Normal appendix with new tiny appendicolith. Again scattered descending and sigmoid diverticulosis without diverticulitis. Normally distended gallbladder with new pericholecystic stranding and tiny free fluid. No gallstones or biliary distention. Acalculous cholecystitis is of primary concern. New 16.3 cm splenomegaly. Again incidental tiny splenic/hepatic calcified granulomas, small right lower renal cyst, and tiny left mid renal cyst. Remaining pancreas, adrenal glands, kidneys, ureters, and bladder are unremarkable for noncontrast exam. Again minimal aortoiliac calcifications without AAA. Osseous structures intact again with osteopenia, moderate multilevel thoracolumbar degenerative spondylosis, minimal grade 1 L4 listhesis, and moderate degenerative changes both hips. Impression: 1. New pericholecystic stranding with tiny free fluid. Rule out acalculous cholecystitis. 2. Chronic findings including benign left lung base noncalcified nodule, bilateral gynecomastia, colonic diverticulosis, splenomegaly, arteriosclerotic disease, chronic bony findings, and old granulomatous disease.
--- NOTE | 2024-01-06 16:44 | XRAY ---
Indication: Elevated liver enzymes. Two-dimensional gallbladder sonogram performed. Comparison: None Pancreas not well seen due to overlying bowel gas. Gallbladder normally distended with abnormal wall thickening up to 3 mm. No gallstones or pericholecystic fluid. Common bile duct measures 3.3 mm. No intrahepatic biliary distention. Homogeneous liver with hepatomegaly measuring 20 cm. Right kidney measures 12.0 x 4.3 x 5.1 cm with 1.7 cm lower pole cortical cyst. Impression: 1. Nonvisualization pancreas. 2. Abnormal gallbladder wall thickening without gallstones or biliary distention. Rule out chronic cholecystitis. 3. Incidental hepatomegaly and small right renal cyst.
[2024-01-06] MEDS ORDERED: Sodium Chloride 0.9% 1000 ML 1,000 ML ONE (17:06)
[2024-01-06] MEDS: Sodium Chloride 0.9% 1000 ML 1,000 ML IV STA (17:07)
--- NOTE | 2024-01-06 17:26 | ERPHSYRPT ---
- History of Present Illness Time Seen by Provider: 01/06/24 13:18 Source: patient Exam Limitations: no limitations Patient Subjective Stated Complaint: Pt c/o of vomiting and weakness that began today Triage Nursing Assessment: Pt brought to the ER by his family, tachypnic, denies pain, weak, lethargic, stated that it came on all at once, N&V, denies diarrhea, pulses normal, skin sallow/w/d, no difficulties with breathing, walks with a cane, came into the ER with a wheelchair Physician History: Patient is here for acute vertigo, dizziness, weakness, nausea and vomiting. Patient states that he has been in his otherwise normal state of health. Patient states that out of the blue today he had sudden onset of vertigo approximately 10:30 AM. States that he felt dizzy and weak. Had sudden onset of nausea as well. Patient states that he did have shoulder surgery last month. However, otherwise he has never had any renal failure, cancer, head bleed, he is not on any blood thinners, he has no fever, chills. Patient states he has had nonbilious vomiting. He has no chest pain, shortness of breath. He speci fically denies any abdominal pain. He has no falls or trauma. Patient is taking PO well. Same number of urinations and defecations. The patient has no signs of altered mental status, nuchal rigidity, signs of meningitis. The patient is up-to-date on all vaccinations. Allergies/Adverse Reactions: ibuprofen [From Motrin] Allergy (Intermediate, Verified 01/06/24 13:22) Hoarseness of voice Penicillins Adverse Reaction (Mild, Verified 01/06/24 13:22) Rash Sulfa (Sulfonamide Antibiotics) Adverse Reaction (Verified 01/06/24 13:22) Home Medications: Acetaminophen 325 mg [Tylenol 325 mg] 500 mg PO Q4H PRN PRN 12/07/23 [History] Apixaban [Eliquis] 2.5 mg PO BID 12/07/23 [History] Ferrous Sulfate 325 mg [Feosol 325 mg] 325 mg PO HS 12/07/23 [History] Tamsulosin HCl 0.4 mg [Flomax 0.4 MG] 0.4 mg PO DAILY 12/07/23 [History] Ergocalciferol (Vitamin D2) [Vitamin D2] 1,250 mcg PO UD 01/06/24 [History] Finasteride 5 mg [Proscar 5 MG] 5 mg PO DAILY 01/06/24 [History] Metoprolol Tartrate 25 mg [Lopressor 25MG Tab] 25 mg PO DAILY 01/06/24 [History] Hx Tetanus, Diphtheria Vaccination/Date Given: Yes Hx Influenza Vaccination/Date Given: Yes Hx Pneumococcal Vaccination/Date Given: Yes Travel Risk - International Travel Have you traveled outside of the country in past 3 weeks: No - Emerging Infectious Disease Are you exhibiting symptoms associated with any current EIDs: Yes Symptoms: Vomitting - Past Medical History Pertinent Past Medical History: Yes Neurological History: No Pertinent History ENT History: Cataracts, Macular Degeneration, Other Cardiac History: Other Respiratory History: Other Endocrine Medical History: No Pertinent History Musculoskeletal History: Osteoarthritis, Other GI Medical History: No Pertinent History History: No Pertinent History Psycho-Social History: No Pertinent History Male Reproductive Disorders: No Pertinent History Other Medical History: Metabolic Acidosis, Abdominal Pain, Constipation, Pneumonia d/t COVID-19, Hypoxia, Fever, Syncope, Leykocytosis, A-Fib with RVR, Sepsis, Chronic Kidney Failure (acute), L Shoulder TSA, Urinary retention - Past Surgical History Past Surgical History: Yes Neuro Surgical History: No Pertinent History Cardiac: No Pertinent History Respiratory: No Pertinent History Gastrointestinal: No Pertinent History Genitourinary: No Pertinent History Musculoskeletal: Orthopedic Surgery Male Surgical History: No Pertinent History Other Surgical History: both shoulders-hemis Significant Family History: no pertinent family hx - Social History Smoking Status: Never smoker Exposure to second hand smoke: No Drug Use: none Patient Lives Alone: No - Social Determinants of Health Will the patient participate in the screening: Yes Do you worry about a steady place to live?: No Do you have any problems with any of the following?: No known problems In the past 12 months,have you had to go without utilities?: No Transportation Issues: No Has anyone in your support network made you feel unsafe?: No Have you or anyone in your house had to go without enough: No - Nursing Vital Signs Nursing Vital Signs: Initial Vital Signs Pulse Rate 79 01/06/24 13:12 Respiratory Rate 28 H 01/06/24 13:12 Blood Pressure 107/57 01/06/24 13:12 O2 Sat by Pulse Oximetry 93 L 01/06/24 13:12 Pain Scale Pain Intensity 0 - Physical Exam SpO2 Interpretation: normal SpO2: 93 Comments: 01/06/24 17:26 Review of Systems Constitutional: Negative for fever. HENT: Negative for congestion. Respiratory: Negative for shortness of breath. Cardiovascular: Negative for chest pain. Gastrointestinal: Negative for abdominal pain. Genitourinary: Negative for dysuria. Musculoskeletal: Negative for back pain. Skin: Negative for rash. Neurological: Negative for headaches. Psychiatric/Behavioral: Negative for behavioral problems. All other systems reviewed and are negative. Physical Exam Vitals signs and nursing note reviewed. Constitutional: Appearance: Patient is well-developed. HENT: Head: Normocephalic and atraumatic. Eyes: Conjunctiva/sclera: Conjunctivae normal. Neck: Musculoskeletal: Normal range of motion. Trachea: No tracheal deviation. Cardiovascular: Rate and Rhythm: Normal rate. Pulmonary: Effort: Pulmonary effort is normal. No respiratory distress. Abdominal: Palpations: Abdomen is soft. There is slightly right upper quadrant tenderness. Otherwise no rebound, guarding, abdominal pain Musculoskeletal: General: No deformity. Skin: General: Skin is warm and dry. Neurological/ Psychiatric: Mental Status: Mental status, behavior, interaction with environment is appropriate for patient's age and condition Motor: There is no pronator drift of out-stretched arms. Muscle bulk and tone are normal. Strength is full bilaterally. Reflexes: Reflexes are 2+ and symmetric at the biceps, triceps, knees, and ankles. Plantar responses are flexor. Sensory: Light touch sense are intact in bilateral upper and lower extremities. There is no sign of neglect. Gait/Stance: Posture is normal, patient is ambultory without difficuly to bed - Course Nursing assessment & vital signs reviewed: Yes EKG Interpreted by Me: Sinus Rhythm (Sinus rhythm, rate of 76, ME interval 154, QRS 86, QTc is 427, no STEMI or other ST changes) Ordered Tests: Active Orders 24 hr Category Date Time Status EKG-ER Only STAT Care 01/06/24 13:35 Active IV Insertion STAT Care 01/06/24 13:35 Active ABDOMEN AND PELVIS W/0 CONTRAS [CT] Stat Exams 01/06/24 14:42 Completed HEAD WITHOUT CONTRAST [CT] Stat Exams 01/06/24 13:36 Completed Ultrasound Gallbladder [GALLBLADDER] [US] Stat Exams 01/06/24 14:39 Completed BMP Stat Lab 01/06/24 17:03 Ordered CBC W DIFF Stat Lab 01/06/24 13:30 Completed CMP Stat Lab 01/06/24 13:30 Completed LIPASE Stat Lab 01/06/24 13:30 Completed Manual Differential NC Stat Lab 01/06/24 13:30 Completed Pathologist Review Stat Lab 01/06/24 13:30 Completed TROPONIN Q4H Lab 01/06/24 13:30 Completed TROPONIN Q4H Lab 01/06/24 17:45 Ordered TROPONIN Q4H Lab 01/06/24 21:45 Ordered Respiratory Therapy Assessment DAILY RT 01/06/24 16:12 Active Medication Summary Generic Name Dose Route Start Last Admin Trade Name Freq PRN Reason Stop Dose Admin Sodium Chloride 250 mls @ 250 mls/hr 01/06/24 13:45 01/06/24 15:07 Sodium Chloride 0.9% 250 Ml IV 01/06/24 14:44 Infused .Q1H YOANA Infusion Sodium Chloride 1,000 mls @ 999 mls/hr 01/06/24 17:03 01/06/24 17:07 Sodium Chloride 0.9% 1000 Ml IV 01/06/24 18:03 999 mls/hr .Q1H1M STA Administration Discontinued Medications Generic Name Dose Route Start Last Admin Trade Name Freq PRN Reason Stop Dose Admin Albuterol Sulfate 2.5 mg 01/06/24 15:56 01/06/24 16:14 Albuterol Sulfate 2.5 Mg/3 Ml Neb IH 01/06/24 15:57 2.5 mg STAT ONE Administration Albuterol Sulfate Confirm 01/06/24 16:14 Albuterol Sulfate 2.5 Mg/3 Ml Neb Administered 01/06/24 16:15 Dose 2.5 mg IH .STK-MED ONE Calcium Gluconate 1,000 mg 01/06/24 15:56 01/06/24 16:05 Calcium Gluconate 1000 Mg/10 Ml Vial IV 01/06/24 15:57 1,000 mg STAT ONE Administration Calcium Gluconate Confirm 01/06/24 16:03 Calcium Gluconate 1000 Mg/10 Ml Vial Administered 01/06/24 16:04 Dose 1,000 mg IV .STK-MED ONE Dextrose 50 ml 01/06/24 15:56 01/06/24 16:06 Dextrose 50%-Water 50 Ml Abboject IV 01/06/24 15:57 50 ml STAT ONE Administration Dextrose Confirm 01/06/24 16:05 Dextrose 50%-Water 50 Ml Abboject Administered 01/06/24 16:06 Dose 50 ml IV .STK-MED ONE Sodium Chloride Confirm 01/06/24 17:06 Sodium Chloride 0.9% 1000 Ml Administered 01/06/24 17:07 Dose 1,000 mls @ ud .ROUTE .STK-MED ONE Insulin Human Regular 5 unit 01/06/24 15:56 01/06/24 16:06 Insulin Regular, Human 1 Unit IV 01/06/24 15:57 5 unit STAT ONE Administration Insulin Human Regular Confirm 01/06/24 16:04 Insulin Regular, Human 1 Unit Administered 01/06/24 16:05 Dose 5 unit .ROUTE .STK-MED ONE Lorazepam 0.5 mg 01/06/24 13:36 01/06/24 15:12 Lorazepam 2 Mg/1 Ml 2 Mg Vial IV 01/06/24 13:37 Not Given STAT ONE Ondansetron HCl 4 mg 01/06/24 13:27 01/06/24 13:29 Ondansetron Hcl 4 Mg/2 Ml Vial IV 01/06/24 13:28 4 mg STAT ONE Administration Ondansetron HCl Confirm 01/06/24 13:28 Ondansetron Hcl 4 Mg/2 Ml Vial Administered 01/06/24 13:29 Dose 4 mg .ROUTE .STK-MED ONE Sodium Bicarbonate 50 meq 01/06/24 15:56 01/06/24 16:06 Sodium Bicarbonate 1 Meq/Ml 50ml Syringe IV 01/06/24 15:57 50 meq STAT ONE Administration Sodium Bicarbonate Confirm 01/06/24 16:05 Sodium Bicarbonate 1 Meq/Ml 50ml Syringe Administered 01/06/24 16:06 Dose 50 meq IV .STK-MED ONE Lab/Rad Data: Laboratory Result Diagrams 01/06/24 13:30 01/06/24 13:30 Laboratory Results 01/06/24 01/06/24 01/06/24 Range/Units 13:30 13:30 13:30 WBC (4.23-9.07) x10^3/uL RBC (4.63-6.08) x10^6/uL Hgb (13.7-17.5) g/dL Hct (40.1-51.0) % MCV (79.0-92.2) fL MCH (25.7-32.2) pg MCHC (32.3-36.5) g/dL RDW (11.6-14.4) % Plt Count (163-337) x10^3/uL MPV (9.4-12.4) fL Segmented Neutrophils (34.0-67.9) % Band Neutrophils (0.0-2.0) % Lymphocytes (Manual) (21.8-53.1) % Monocytes (Manual) (5.3-12.2) % Metamyelocytes % Nucleated RBCs % Blast Cells % Platelet Estimate (NORMAL) Anisocytosis Smear Path Review Sodium 137 (135-145) mmol/L Potassium 6.9 H* (3.5-5.1) mmol/L Chloride 103 (98-107) mmol/L Carbon Dioxide 8 L* (22-30) mmol/L Anion Gap 33.2 H (5-15) MEQ/L BUN 47 H (9-20) mg/dL Creatinine 4.92 H (0.66-1.25) mg/dL Estimated GFR 11.2 ML/MIN Glucose 131 H (74-106) mg/dL Calcium 9.7 (8.4-10.2) mg/dL Total Bilirubin 1.80 H (0.2-1.3) mg/dL AST 286 H (17-59) U/L ALT 228 H (0-50) U/L Alkaline Phosphatase 133 H (38-126) U/L Troponin I 0.041 H* (0.000-0.033) ng/mL Serum Total Protein 7.8 (6.3-8.2) g/dL Albumin 4.3 (3.5-5.0) g/dL Lipase 21 L (23-300) U/L 11/25/24 Range/Units 13:30 WBC 138.6 H* (4.23-9.07) x10^3/uL RBC 4.00 L (4.63-6.08) x10^6/uL Hgb 11.2 L (13.7-17.5) g/dL Hct 35.7 L (40.1-51.0) % MCV 89.3 (79.0-92.2) fL MCH 28.0 (25.7-32.2) pg MCHC 31.4 L (32.3-36.5) g/dL RDW 16.6 H (11.6-14.4) % Plt Count 97 L (163-337) x10^3/uL MPV 11.9 (9.4-12.4) fL Segmented Neutrophils 27 L (34.0-67.9) % Band Neutrophils 3 H (0.0-2.0) % Lymphocytes (Manual) 11 L (21.8-53.1) % Monocytes (Manual) 24 H (5.3-12.2) % Metamyelocytes 13 % Nucleated RBCs 3 % Blast Cells 23 % Platelet Estimate DECREASED (NORMAL) Anisocytosis 1+ Smear Path Review Sodium (135-145) mmol/L Potassium (3.5-5.1) mmol/L Chloride (98-107) mmol/L Carbon Dioxide (22-30) mmol/L Anion Gap (5-15) MEQ/L BUN (9-20) mg/dL Creatinine (0.66-1.25) mg/dL Estimated GFR ML/MIN Glucose (74-106) mg/dL Calcium (8.4-10.2) mg/dL Total Bilirubin (0.2-1.3) mg/dL AST (17-59) U/L ALT (0-50) U/L Alkaline Phosphatase (38-126) U/L Troponin I (0.000-0.033) ng/mL Serum Total Protein (6.3-8.2) g/dL Albumin (3.5-5.0) g/dL Lipase (23-300) U/L - Progress Progress: improved Progress Note: 01/06/24 17:28 Differential diagnosis includes infection, head bleed, UTI, electrolyte abnormality, arrhythmia, myocardial infarction. Patient's labs came back with some extreme abnormalities that may point to patient having a new onset cancer with hyperviscosity symptoms. See labs above, but in summary, patient has new onset leukocytosis but has never been seen on previous labs, acute renal failure, hyperkalemia, elevated LFTs, bilirubin. Elevated troponin but no signs of acute STEMI on EKG. Plan for repeat troponin at [address] did not show any acute abnormalities, head bleed. We did obtain an ultrasound of the right upper quadrant and a CT scan. This did show some gallbladder wall thickening and pericholecystic fluid. However, there was not a read for acute cholecystitis. Hyperkalemia was treated with appropriate hyperkalemia protocol. No peaked T waves on EKG. Repeat BMP also ordered. In summary, I did discuss all these findings with the patient. Patient will need to be transfer to a hospital that has hematology, oncology, ICU level care, other resources including cardiology, general surgery. We do not have these at this critical access hospital, [facility]. Therefore, I did discuss transfer to [facility]. The family was agreeable to this. I did discuss over the phone with on-call hospitalist, Dr. Buenrostro. We went over all details and findings. He did accept the patient for transfer. Currently awaiting bed placement. Plan for continued close monitoring in the emergency department. ED critical care statement As staff physician, I have provided critical care. Time: 55 mins Criteria for critical illness: Hyperkalemia requiring treatment, acute renal failure, elevated troponin, likely new onset leukemia or lymphoma. Treatment and management provided include: Coordination of management with ETC care team, consultants, and inpatient care team. [id number] assessment of condition and response to therapy. Review and interpretation of emergent diagnostic testing. Medical chart review and completion. Direction and immediate supervision of the following therapy: Critical care was time spent personally by me on the following activities: blood draw for specimens, development of treatment plan with patient or surrogate, discussions with consultants, discussions with primary provider, interpretation of cardiac output measurements, evaluation of patient's response to treatment, examination of patient, obtaining history from patient or surrogate, ordering and performing treatments and interventions, ordering and review of laboratory studies, ordering and review of radiographic studies, pulse oximetry, re-evaluation of patient's condition and review of old charts. This time was independent of all procedures performed. Zach Perez Counseled pt/family regarding: lab results, diagnosis, need for follow-up, rad results - Departure Departure Disposition: Transfer Clinical Impression: Hyperkalemia, Leukocytosis, Acute renal failure, Nausea and vomiting, Elevated LFTs, Elevated bilirubin, Thickening of wall of gallbladder with pericholecystic fluid Condition: Stable Critical Care Time: No Critical Care Time(excluding separately billable procedures): Critical 30-74 mins Referrals: GUSTAVO ROBERTS [Primary Care Provider] - Follow up/PCP as directed
[2024-01-06 18:00] LABS: Calcium 9.7 mg/dL (8.4-10.2); Creatinine 1 4.79 mg/dL (0.66-1.25); EST GLOMERULAR FILTRATION RATE 11.6 ML/MIN; Potassium 5.9 mmol/L (3.5-5.1)
[2024-01-06] MEDS ORDERED: PIPERACILLIN/TAZOBACTAM IV ONE (18:21)
[2024-01-06] MEDS ORDERED: Sodium Chloride 100ML MINI-BAG PLUS 100 ML IV ONE (18:22)
[2024-01-06] MEDS: PIPERACILLIN/TAZOBACTAM 4.5 GM in Sodium Chloride 100ML MINI-BAG PLUS 100 ML IV ONE (18:23)
[2024-01-06] MEDS ORDERED: MOTRIN 600 MG ONE (18:40)
[2024-01-06] MEDS ORDERED: TYLENOL EXTRA STRENGTH 500 MG ONE (18:40)
[2024-01-06] MEDS: MOTRIN 600 MG PO ONE (18:44)
[2024-01-06] MEDS: TYLENOL EXTRA STRENGTH 500 MG PO STA (18:48)
[2024-01-06 19:16] VITALS: PULSE 109; RESP 35; O2SAT 92
[2024-01-06] MEDS ORDERED: Ativan 2 MG/1 ML VIAL ONE (19:43)
[2024-01-06 19:49] VITALS: BP 117/66; TEMP 102
== END 2024-01-06 19:50 | disposition short-term general hospital (02) ==
LOC: ED 13:13
DX: E87.5 Hyperkalemia (principal); D72.829 Elevated white blood cell count, unspecified; N17.9 Acute kidney failure, unspecified; R11.2 Nausea with vomiting, unspecified; R94.5 Abnormal results of liver function studies; E80.6 Other disorders of bilirubin metabolism; K82.8 Other specified diseases of gallbladder; R42 Dizziness and giddiness; R53.1 Weakness; Z79.01 Long term (current) use of anticoagulants; Z79.899 Other long term (current) drug therapy
CPT/HCPCS: 36415; 70450; 74176; 76705; 80048; 80053; 83690; 84484; 85025; 93005; 94640; 96360; 96374; 96375; 99285; 99291; J0612; J1815; J2060; J2405; J2543; J7609; A9270-GY